=== PATIENT | male | born 1960 | race Caucasian/White ===

== ENCOUNTER 2022-04-17 11:15 | Inpatient (IN) | payer BC, SELFPAY ==
--- NOTE | ~2022-04-17 | CT_ITS ---
EXAMINATION: CT angio head neck CLINICAL INFORMATION: TIA. Dysarthria. Symptoms resolved. COMPARISON: No relevant prior imaging. TECHNIQUE: Quarter Doper images were obtained. A CT angiogram of the head and neck was performed in the arterial phase after the intravenous administration of 70 mL Omnipaque 350. Pre and delayed postcontrast images of the head were also obtained. MIP reconstructions were generated in multiple orientations at the acquisition workstation. Multiple three-dimensional surface rendered images and maximum intensity projection images were generated on a dedicated 3-D lab workstation. Arterial stenoses are measured in accordance with NASCET criteria or similar method if applicable. This CT examination was performed using dose optimization techniques as appropriate, including one or more of the following: Automated exposure control, iterative reconstruction, and adjustment of technique factors (mA and/or kVp) according to patient size (this includes techniques or standardized protocols for targeted exams where dose is matched to indication/reason for exam). Fleischner Society criteria for the followup of incidental pulmonary nodules was implemented if appropriate. Total exam dose-length product 2382 mGy-cm FINDINGS: Head: There is a small nonspecific hyperdensity located within the left cerebellar hemisphere best depicted on axial image 6 of 60 series 5. Otherwise no acute cranial hemorrhage or abnormal extra-axial collection. Postcontrast images reveal no abnormal intracranial mass or enhancement. No intracranial mass effect or midline shift. Lateral and third ventricles are normal. No hydrocephalus. Scattered nonspecific foci of hypoattenuation are visualized within the periventricular white matter that most likely represent a chronic manifestation of small vessel ischemia. Weathers-white matter differentiation is otherwise preserved and there is no evidence of acute territorial infarct. The calvarium and skull base are intact. Mastoid air cells and middle ear cavities are well aerated. No active paranasal sinus disease. There is a tiny retention cyst within the left maxillary sinus. CT angiogram neck: The aortic arch apex is no included within the jfirj-hh-bikj of this examination. Proximal branches of the aorta are grossly patent. Common carotid arteries are patent. Partially calcified atheromatous plaque involves both carotid bifurcations. There is 25% stenosis of the right internal carotid artery at its origin and there is a somewhat irregular contour along the anterior margin of the plaque best visualized on axial image 643 of 1054 series 10 that may represent an ulceration. The extra cranial internal carotid arteries are otherwise patent. The proximal cervical vertebral arteries are not well assessed on this examination due to the timing of the contrast injection. The distal V2 and V3 segments of the vertebral arteries are patent. CT angiogram head: Scattered atheromatous calcification involves the cavernous segments of both internal carotid arteries. There is mild to moderate narrowing involving the right intradural vertebral artery. The left vertebral artery and basilar artery are patent. Anterior, middle, and posterior cerebral complexes are unremarkable. Grossly no intracranial large vessel occlusion. Other: There are a few asymmetrically enlarged right level IV and right paratracheal lymph nodes. Soft tissues of the neck including the thyroid gland are normal. Grossly no pathologically enlarged cervical lymph nodes. Visualized lung apices are clear. There is no acute osseous finding. Specifically no worrisome lytic or blastic osseous lesion. CT/CT angio head neck IMPRESSION: There is partially calcified atheromatous plaque involving both carotid bifurcations. There is 25% stenosis of the right internal carotid artery at its origin and there is a possible ulceration of the right carotid plaque. No stenosis of the left extracranial internal carotid artery. The proximal vertebral arteries are not well assessed on this examination due to the timing of the contrast injection. The distal V2 and V3 segments of the vertebral arteries are patent. There is is mild to moderate narrowing of the right intradural vertebral artery. Otherwise no intracranial large vessel occlusion. Grossly no evidence of acute territorial infarct or hemorrhage. No abnormal intracranial mass or enhancement. Of note there are a few asymmetrically enlarged albeit otherwise nonspecific right level IV and right paratracheal lymph nodes that are partially included within the [id number]-[id number] of this examination.
--- NOTE | 2022-04-17 11:22 | PC.NURSE ---
PT ARRIVES AMBULATING STEADY, SPEECH CLEAR, NEGATIVE NEURO SCREEN. IT WAS REPORTED BY CO WORKERS THAT APPROX 1 HR HAD SLURRED SPEECH,LASTING A FEW MINUTES
--- NOTE | 2022-04-17 11:40 | ECG_ITS ---
Test Reason : WEAKNESS Blood Pressure : / mmHG Vent. Rate : 076 BPM Atrial Rate : 076 BPM P-R Int : 152 ms QRS Dur : 098 ms QT Int : 376 ms P-R-T Axes : 033 -55 079 degrees QTc Int : 423 ms Normal sinus rhythm Nonspecific T wave abnormality Lateral leads Left anterior fascicular block Cannot rule out Anterior infarct (cited on or before 06-NOV-2017) Abnormal ECG When compared with ECG of 06-NOV-2017 15:01, Nonspecific T wave abnormality Lateral leads is new Referred By: Generic ED Physician Electronically Signed By:JOY HOUSTON MD
[2022-04-17 11:45] VITALS: BP 201/92; PULSE 79; RESP 20; TEMP 36.9; O2SAT 97; BMI 40.7
[2022-04-17 12:50] LABS: MANUAL DIFF FLAG NO
[2022-04-17 12:52] LABS: Basophils Absolute Auto 0.1 X10*3/uL (0.0-0.2); Basophils Percent Auto 0.9 % (0-2); Eosinophils Absolute Auto 0.2 X10*3/uL (0.0-0.4); Eosinophils Percent Auto 2.1 % (0-4); Hematocrit 40.3 % (42.0-52.0); Hemoglobin 12.6 g/dl (14.0-18.0); Imm Gran Abs Auto 0.02 X10*3/uL (0.00-0.03); Imm Gran Pct Auto 0.3 % (0.0-0.4); Lymphocytes Absolute Auto 1.6 X10*3/uL (1.2-4.9); Lymphocytes Percent Auto 20.6 % (20-40); Mean Corpuscular HGB Conc 31.3 g/dl (31.0-36.0); Mean Corpuscular Hemoglobin 26.8 pg (27.0-33.0); Mean Corpuscular Volume 85.7 fL (80.0-98.0); Mean Platelet Volume 8.8 fL (9.4-12.4); Monocytes Absolute Auto 0.5 X10*3/uL (0.1-1.2); Monocytes Percent Auto 6.6 % (2-11); Neutrophils Absolute Auto 5.4 x10*3/uL (2.0-8.3); Neutrophils Percent Auto 69.5 % (45-73); Platelet Count 353 X10*3/uL (160-400); Red Cell Distribution Width 13.4 % (11.0-16.0); White Blood Count 7.7 X10*3/uL (4.8-10.8)
[2022-04-17 13:06] LABS: COVID-19 Test Negative (Negative); IDNOW Serial# 16C4AD1C
[2022-04-17 13:13] LABS: Anion Gap 14 (12-20); Blood Urea Nitrogen 33 mg/dL (9-16); Calcium 9.1 mg/dL (8.4-10.2); Carbon Dioxide 27 mmol/L (22-29); Chloride 107 mmol/L (96-108); Creatinine Clr Calc Pharmacy 64.4; Estimated Glomerular Filt Rate 49; Glucose Random 131 mg/dL (60-115); Potassium 5.4 mmol/L (3.3-5.1); Sodium 143 mmol/L (135-145)
[2022-04-17 13:15] LABS: Alanine Aminotransferase 27 U/L (0-40); Albumin Level 3.4 g/dL (3.5-5.0); Alkaline Phosphatase 83 U/L (39-117); Aspartate Amino Transferase 47 U/L (5-37); Bilirubin Direct < 0.2 mg/dL (0.0-0.5); Bilirubin Total 0.2 mg/dL (0.0-1.0); Total Protein 5.7 g/dL (6.5-8.0)
[2022-04-17 16:02] VITALS: BP 204/101; PULSE 75; RESP 19; TEMP 37.2; O2SAT 98
--- NOTE | 2022-04-17 16:28 | ED.NEUROSD ---
HPI - Neuro Symptoms/Deficit General Chief Complaint: Weakness Stated Complaint: quest of stroke Time Seen by Provider: 04/17/22 16:09 Source: patient Mode of arrival: ambulatory Limitations: no limitations History of Present Illness HPI Narrative: Patient comes to the emergency room complaining of dysarthria. Patient states that at 06:00, he woke up, went to work. 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 By 9 a.m., patient's co-worker told him that he sounded slurred, drunk, and the patient was aware that his speech was off. 911 was called by his friend, patient refused to come by ambulance. However, patient did come 2 hours later by private vehicle. Patient states that by the time that he reached the emergency room, his symptoms had already resolved. Patient states that he noticed that today his blood pressure has been on the higher side, above 200 which is unusual for him, usually he runs between 110 and 120 systolic. He did not take his medication this morning. Patient also complaining of blurred vision bilaterally. Patient states that he check his blood sugar when he noticed his vision was blurred, it was 110 Related Data Allergies Allergy/AdvReac Type Severity Reaction Status Date / Time No Known Allergies Allergy Unverified 03/11/20 15:44 [facility] Social History Social History Alcohol intake: current Alcohol intake frequency: holidays/special occasions only Patient Tobacco Use Status: Never used Tobacco Use of substances other than those prescribed or required for medical reasons: Yes Substance Use Type: Marijuana Substance Use Frequency: Socially Last Used Substance: Days (ago) Any prior treatment program specific to substance use: No Advance Directives: No Advance Directives Information Provided: No Physical Exam Vital Signs: Vital Signs: Last Vital Signs Temp 98.3 F 04/17/22 18:57 Pulse 76 04/17/22 18:57 Resp 15 04/17/22 18:57 BP 172/85 H 04/17/22 18:57 Pulse Ox 98 04/17/22 18:30 O2 Del Method 04/17/22 18:30 BMI result Body Mass Index 40.7 Course Course Course Narrative: I discussed the CT and CTA with the patient and his . No acute findings other than 25% right carotid stenosis. I discussed with the patient that his symptoms may have been a TIA. I discussed the patient with Dr. Garcia, patient will be admitted for further evaluation MDM - Neuro Symptoms/Deficit Lab Data Result diagrams: 04/17/22 12:38 04/17/22 12:38 Labs: Lab Results 04/17/22 04/17/22 04/17/22 Range/Units 12:38 12:38 12:38 WBC 7.7 (4.8-10.8) X10*3/uL RBC 4.70 (4.60-5.80) X10*6/uL Hgb 12.6 L (14.0-18.0) g/dl Hct 40.3 L (42.0-52.0) % MCV 85.7 (80.0-98.0) fL MCH 26.8 L (27.0-33.0) pg MCHC 31.3 (31.0-36.0) g/dl RDW 13.4 (11.0-16.0) % Plt Count 353 (160-400) X10*3/uL MPV 8.8 L (9.4-12.4) fL Immature Gran % (Auto) 0.3 (0.0-0.4) % Neut % (Auto) 69.5 (45-73) % Lymph % (Auto) 20.6 (20-40) % [place] % (Auto) 6.6 (2-11) % Eos % (Auto) 2.1 (0-4) % Baso % (Auto) 0.9 (0-2) % Lymph # (Auto) 1.6 (1.2-4.9) X10*3/uL [place] # (Auto) 0.5 (0.1-1.2) X10*3/uL Eos # (Auto) 0.2 (0.0-0.4) X10*3/uL Baso # (Auto) 0.1 (0.0-0.2) X10*3/uL Abs Immat Gran (auto) 0.02 (0.00-0.03) X10*3/uL Absolute Neuts (auto) 5.4 (2.0-8.3) x10*3/uL Absolute Nucleated RBC 0.000 (0.0-0.012) X10*3/uL Nucleated RBC % (auto) 0.0 (0.0-0.2) /100WBC Sodium 143 (135-145) mmol/L Potassium 5.4 H (3.3-5.1) mmol/L Chloride 107 (96-108) mmol/L Carbon Dioxide 27 (22-29) mmol/L Anion Gap 14 (12-20) BUN 33 H (9-16) mg/dL Creatinine 1.46 H (0.5-1.4) mg/dL Estim Creat Clear Calc 64.4 Estimated GFR 49 Random Glucose 131 H (60-115) mg/dL Calcium 9.1 (8.4-10.2) mg/dL Total Bilirubin (0.0-1.0) mg/dL Direct Bilirubin (0.0-0.5) mg/dL AST (5-37) U/L ALT (0-40) U/L Alkaline Phosphatase (39-117) U/L Total Protein (6.5-8.0) g/dL Albumin (3.5-5.0) g/dL COVID-19 (TERRANCE) Negative (Negative) COVID-19 Clin Com See Note 04/17/22 Range/Units 12:38 WBC (4.8-10.8) X10*3/uL RBC (4.60-5.80) X10*6/uL Hgb (14.0-18.0) g/dl Hct (42.0-52.0) % MCV (80.0-98.0) fL MCH (27.0-33.0) pg MCHC (31.0-36.0) g/dl RDW (11.0-16.0) % Plt Count (160-400) X10*3/uL MPV (9.4-12.4) fL Immature Gran % (Auto) (0.0-0.4) % Neut % (Auto) (45-73) % Lymph % (Auto) (20-40) % [place] % (Auto) (2-11) % Eos % (Auto) (0-4) % Baso % (Auto) (0-2) % Lymph # (Auto) (1.2-4.9) X10*3/uL [place] # (Auto) (0.1-1.2) X10*3/uL Eos # (Auto) (0.0-0.4) X10*3/uL Baso # (Auto) (0.0-0.2) X10*3/uL Abs Immat Gran (auto) (0.00-0.03) X10*3/uL Absolute Neuts (auto) (2.0-8.3) x10*3/uL Absolute Nucleated RBC (0.0-0.012) X10*3/uL Nucleated RBC % (auto) (0.0-0.2) /100WBC Sodium (135-145) mmol/L Potassium (3.3-5.1) mmol/L Chloride (96-108) mmol/L Carbon Dioxide (22-29) mmol/L Anion Gap (12-20) BUN (9-16) mg/dL Creatinine (0.5-1.4) mg/dL Estim Creat Clear Calc Estimated GFR Random Glucose (60-115) mg/dL Calcium (8.4-10.2) mg/dL Total Bilirubin 0.2 (0.0-1.0) mg/dL Direct Bilirubin < 0.2 (0.0-0.5) mg/dL AST 47 H (5-37) U/L ALT 27 (0-40) U/L Alkaline Phosphatase 83 (39-117) U/L Total Protein 5.7 L (6.5-8.0) g/dL Albumin 3.4 L (3.5-5.0) g/dL COVID-19 (TERRANCE) (Negative) COVID-19 Clin Com Imaging Data Head and neck CT and CTA: Radiologist's impression: FINDINGS: Head: There is a small nonspecific hyperdensity located within the left cerebellar hemisphere best depicted on axial image 6 of 60 series 5. Otherwise no acute cranial hemorrhage or abnormal extra-axial collection. Postcontrast images reveal no abnormal intracranial mass or enhancement. No intracranial mass effect or midline shift. Lateral and third ventricles are normal. No hydrocephalus. Scattered nonspecific foci of hypoattenuation are visualized within the periventricular white matter that most likely represent a chronic manifestation of small vessel ischemia. Waethers-white matter differentiation is otherwise preserved and there is no evidence of acute territorial infarct. The calvarium and skull base are intact. Mastoid air cells and middle ear cavities are well aerated. No active paranasal sinus disease. There is a tiny retention cyst within the left maxillary sinus. CT angiogram neck: The aortic arch apex is no included within the [id number] of this examination. Proximal branches of the aorta are grossly patent. Common carotid arteries are patent. Partially calcified atheromatous plaque involves both carotid bifurcations. There is 25% stenosis of the right internal carotid artery at its origin and there is a somewhat irregular contour along the anterior margin of the plaque best visualized on axial image 643 of 1054 series 10 that may represent an ulceration. The extra cranial internal carotid arteries are otherwise patent. The proximal cervical vertebral arteries are not well assessed on this examination due to the timing of the contrast injection. The distal V2 and V3 segments of the vertebral arteries are patent. CT angiogram head: Scattered atheromatous calcification involves the cavernous segments of both internal carotid arteries. There is mild to moderate narrowing involving the right intradural vertebral artery. The left vertebral artery and basilar artery are patent. Anterior, middle, and posterior cerebral complexes are unremarkable. Grossly no intracranial large vessel occlusion. Other: There are a few asymmetrically enlarged right level IV and right paratracheal lymph nodes. Soft tissues of the neck including the thyroid gland are normal. Grossly no pathologically enlarged cervical lymph nodes. Visualized lung apices are clear. There is no acute osseous finding. Specifically no worrisome lytic or blastic osseous lesion. CT/CT angio head neck IMPRESSION: There is partially calcified atheromatous plaque involving both carotid bifurcations. There is 25% stenosis of the right internal carotid artery at its origin and there is a possible ulceration of the right carotid plaque. No stenosis of the left extracranial internal carotid artery. The proximal vertebral arteries are not well assessed on this examination due to the timing of the contrast injection. The distal V2 and V3 segments of the vertebral arteries are patent. There is is mild to moderate narrowing of the right intradural vertebral artery. Otherwise no intracranial large vessel occlusion. Grossly no evidence of acute territorial infarct or hemorrhage. No abnormal intracranial mass or enhancement. Of note there are a few asymmetrically enlarged albeit otherwise nonspecific right level IV and right paratracheal lymph nodes that are partially included within the [id number] of this examination.? Critical Care Time Critical Care Time Critical Care Time: Yes Total Critical Care Time: 45 Attestation: I have personally provided critical care time. Time includes review of lab data, radiology results, discussion with consultants, and monitoring for potential decompensation. Intervention performed as documented. Discharge Plan Discharge Clinical Impression: Brain TIA Patient Disposition: Admitted As Inpatient
[2022-04-17] MEDS: iohexoL 350 MG/ML 100 ML INFUS..BTL IV (18:08)
[2022-04-17 18:30] VITALS: BP 170/85; PULSE 77; RESP 15; TEMP 36.9; O2SAT 98
[2022-04-17] MEDS: Labetalol HCL 100 MG TABLET PO (18:35)
[2022-04-17 18:57] VITALS: BP 172/85; PULSE 76; RESP 15; TEMP 36.8
--- NOTE | 2022-04-17 20:15 | P.HPHOSP_ITS ---
History of Present Illness Date of Service: 04/17/22 Chief Complaint: Dysarthria This is a 61-year-old male with a pertinent history of insulin-dependent diabetes mellitus, mixed hyperlipidemia, essential hypertension who presents to the emergency department for evaluation of dysarthria. Patient states around 08:00 his assistant front end manager at home noticed change in speech. Patient states that his speech was slurry and his assistant front end manager told him that he sounded drunk. Patient also had blurring of vision at that time. His speech returned to baseline in 2 hours by the time patient came to the ER. No similar symptoms in the past. No history of stroke or TIA. Patient checked his blood glucose and it was in the 110s. No rhythmic jerking movement of extremities, no tongue bite, no loss of consciousness. Patient denies fever, chills, chest discomfort, palpitations, abdominal discomfort, changes in urinary or bowel habits In the emergency department, CT head was without any acute deficits. Review of Systems Review of Systems: All 13 review of systems are negative except as noted in [facility] Medical History Hyperlipidemia Hypertension Insulin dependent diabetes Functional capacity: independent ambulation Social History Alcohol intake: current Alcohol intake frequency: holidays/special occasions only Patient Tobacco Use Status: Never used Tobacco Use of substances other than those prescribed or required for medical reasons: Yes Substance Use Type: Marijuana Substance Use Frequency: Socially Last Used Substance: Days (ago) Any prior treatment program specific to substance use: No Advance Directives: No Advance Directives Information Provided: No Meds Allergies Allergy/AdvReac Type Severity Reaction Status Date / Time No Known Allergies Allergy Unverified 03/11/20 15:44 Active Medications: Current Medications Acetaminophen (Acetaminophen 325 Mg Tablet) 650 mg PO Q6H PRN PRN Reason: Pain, Mild (Pain Scale 1-3) Aspirin (Aspirin Enteric Coated 81 Mg Tablet.) 81 mg PO DAILY DELON Dextrose (Dextrose 50 % 25 Gm/50 Ml Syringe) 25 gm IVPUSH Q15M PRN; Protocol PRN Reason: per Hypoglycemia Standing Ord. Enoxaparin Sodium (Enoxaparin Sodium 30 Mg/0.3 Ml Syringe) 30 mg SUBCUT DAILY DELON Fenofibrate (Fenofibrate 160 Mg Tablet) 120 mg PO BEDTIME DELON Glucose (Glucose Gel 15 Gm Gel..Gram.) 15 gm PO Q15M PRN; Protocol PRN Reason: per Hypoglycemia Standing Ord. Insulin Glargine (Insulin Glargine,Hum.Rec.Anlog 100 Unit/Ml 10 Ml Vial) 55 unit SUBCUT BEDTIME DELON Insulin Human Lispro (Insulin Lispro 100 Unit/Ml 3 Ml Vial) 0 unit SUBCUT QIDACHS DELON; Protocol Stop: 04/18/22 20:12 Losartan Potassium (Losartan Potassium 25 Mg Tablet) 25 mg PO DAILY DELON; Protocol Melatonin (Melatonin 3 Mg Tablet) 6 mg PO BEDTIME PRN PRN Reason: Insomnia Non-Formulary Medication (Simvastatin) 1 tab PO BEDTIME DELON Ondansetron HCl (Ondansetron Hcl 4 Mg/2 Ml Vial) 4 mg IVPUSH Q8H PRN PRN Reason: Nausea and Vomiting Pharmacy Consult (Consult Rx Perform Med Rec) 1 each MISCELLANE ONCE STA Stop: 04/17/22 19:37 Home Medications Medication Instructions Recorded Confirmed Last Taken Type cholecalciferol (vitamin D3) 50 50 mcg PO DAILY 04/17/22 04/17/22 04/16/22 History mcg (2,000 unit) tablet fenofibrate 120 mg tablet 1 tab PO BEDTIME 04/17/22 04/17/22 04/16/22 History insulin glargine 100 unit/mL (3 80 unit subcut BEDTIME 04/17/22 04/17/22 04/16/22 History mL) subcutaneous pen (Lantus Solostar U-100 Insulin) losartan 25 mg tablet 1 tab PO DAILY 04/17/22 04/17/22 04/16/22 History sildenafil 25 mg tablet 25 mg PO DAILY PRN Sexual Activity 04/17/22 04/17/22 Unknown History simvastatin 80 mg tablet 80 mg PO BEDTIME 04/17/22 04/17/22 04/16/22 History Physical Exam Vital Signs and Narrative: Vital Signs: Last Vital Signs Temp 98.3 F 04/17/22 18:57 Pulse 76 04/17/22 18:57 Resp 15 04/17/22 18:57 BP 172/85 H 04/17/22 18:57 Pulse Ox 98 04/17/22 18:30 O2 Del Method 04/17/22 18:30 BMI result Body Mass Index 40.7 Middle-aged male lying in bed in no distress Neck supple, no JVD Regular rate and rhythm, S1-S2 heard Regular breath sounds bilaterally, no wheezing or crackles appreciated Abdomen soft nontender, no guarding, no rigidity Patient is awake, alert and oriented to self, place, time and person ; no pronator drift, strength 5/5 in all extremities, no facial droop, no nystagmus, normal shoulder shrug Psych: Normal mood No pedal edema Results Labs CBC and Chem 7: 04/17/22 12:38 04/17/22 12:38 Labs: Laboratory Results - last 24 hr 04/17/22 04/17/22 04/17/22 12:38 12:38 12:38 MCV 85.7 MCH 26.8 L MCHC 31.3 RDW 13.4 Plt Count 353 MPV 8.8 L Immature Gran % (Auto) 0.3 Neut % (Auto) 69.5 Lymph % (Auto) 20.6 [place] % (Auto) 6.6 Eos % (Auto) 2.1 Baso % (Auto) 0.9 Lymph # (Auto) 1.6 [place] # (Auto) 0.5 Eos # (Auto) 0.2 Baso # (Auto) 0.1 Abs Immat Gran (auto) 0.02 Absolute Neuts (auto) 5.4 Absolute Nucleated RBC 0.000 Nucleated RBC % (auto) 0.0 Anion Gap 14 Estim Creat Clear Calc 64.4 Estimated GFR 49 Random Glucose 131 H Calcium 9.1 Total Bilirubin Direct Bilirubin AST ALT Alkaline Phosphatase Total Protein Albumin COVID-19 (TERRANCE) Negative COVID-19 Clin Com See Note 04/17/22 12:38 MCV MCH MCHC RDW Plt Count MPV Immature Gran % (Auto) Neut % (Auto) Lymph % (Auto) [place] % (Auto) Eos % (Auto) Baso % (Auto) Lymph # (Auto) [place] # (Auto) Eos # (Auto) Baso # (Auto) Abs Immat Gran (auto) Absolute Neuts (auto) Absolute Nucleated RBC Nucleated RBC % (auto) Anion Gap Estim Creat Clear Calc Estimated GFR Random Glucose Calcium Total Bilirubin 0.2 Direct Bilirubin < 0.2 AST 47 H ALT 27 Alkaline Phosphatase 83 Total Protein 5.7 L Albumin 3.4 L COVID-19 (TERRANCE) COVID-19 Clin Com Imaging Radiologist's Impressions: Impressions Head/Neck CTA 04/17/22 18:09 IMPRESSION: There is partially calcified atheromatous plaque involving both carotid bifurcations. There is 25% stenosis of the right internal carotid artery at its origin and there is a possible ulceration of the right carotid plaque. No stenosis of the left extracranial internal carotid artery. The proximal vertebral arteries are not well assessed on this examination due to the timing of the contrast injection. The distal V2 and V3 segments of the vertebral arteries are patent. There is is mild to moderate narrowing of the right intradural vertebral artery. Otherwise no intracranial large vessel occlusion. Grossly no evidence of acute territorial infarct or hemorrhage. No abnormal intracranial mass or enhancement. Of note there are a few asymmetrically enlarged albeit otherwise nonspecific right level IV and right paratracheal lymph nodes that are partially included within the [id number] of this examination. Assessment and Plan (1) Brain TIA: Status: Acute (2) Dysarthria: Status: Acute (3) Hyperlipidemia: Status: Acute (4) Insulin dependent diabetes: Status: Acute (5) Hypertension: Status: Acute (6) Chronic kidney disease: Status: Acute Plan This is a 61-year-old male with a pertinent history of insulin-dependent diabetes mellitus, mixed hyperlipidemia, essential hypertension who presents to the emergency department for evaluation of dysarthria. #. Dysarthria, resolved concerning for TIA #. 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 ABCD2 score:6. Obtain MRI in am and consult neurology. Echo, A1c and lipid panel pending to complete ischemic CVA work up. Continue fenofibrate, statin and initiating aspirin. #. Essential hypertension -BP elevated at the time of admission. Resume losartan. #. Insulin dependent diabetes milletus -Reduce basal regimen by 20% while in the hospital. Initiating accu checks with sliding scale before meals and at bedtime. #. Chronic kidney disease -unclear baseline. Monitor creatinine and urine output. #. Mixed hyperlipidemia -On statin and fenofibrate DVT prophylaxis : Lovenox Diet : Diabetic diet Full code Will admit as inpatient for CVA work up including MRI brain and neurology evaluation. Quality Stroke Does the patient have a stroke diagnosis?: No VTE Prior VTE?: No VTE Risk Level:: Medical - moderate - high VTE Device Contraindication: Treatment Not Indicated VTE Drug Contraindication: N/A - Med Ordered
[2022-04-17 20:44] LABS: Cholesterol 211 mg/dL; HDL Cholesterol 48 mg/dL; LDL Cholesterol Calculated 138 mg/dl; Triglycerides 129 mg/dL
--- NOTE | 2022-04-17 20:51 | PHA.MEDREC ---
Pharmacy Consult ? Medication Reconciliation Pharmacy has completed the medication reconciliation. spoke with pt
--- NOTE | 2022-04-17 21:37 | PC.NURSE ---
Pt resting in bed. When tech was pulling up info for lab work, it came up as needing to be fasting. Messaged Dr. Garcia and ok to draw labs without fasting as pt. has been eating during the day and the evening.
[2022-04-17 21:56] LABS: Glucose, Whole Blood 207 mg/dL (60-115)
[2022-04-17] MEDS: Aspirin Enteric Coated 81 MG TABLET.DR PO (22:03)
[2022-04-17] MEDS: Losartan Potassium 25 MG TABLET PO (22:03)
[2022-04-17] MEDS: Insulin Lispro 100 UNIT/ML 3 ML VIAL SUBCUT (22:04)
[2022-04-17] MEDS: Enoxaparin Sodium 40 MG/0.4 ML SYRINGE SUBCUT (22:04)
[2022-04-17] MEDS: Insulin Glargine,Hum.rec.anlog 100 UNIT/ML 10 ML VIAL 55 UNIT SUBCUT (22:05)
--- NOTE | 2022-04-17 22:17 | PC.NURSE ---
8pm medications delayed as we were pending verification by pharmacy. Pharmacy verified and meds given.
[2022-04-17 22:52] VITALS: BP 183/89; PULSE 80; RESP 19; O2SAT 95
[2022-04-18] VITALS (9 sets, daily range): BP systolic 149–191; BP diastolic 67–99; PULSE 67–83; RESP 11–20; TEMP 36.5–37.3; O2SAT 95–98
--- NOTE | 2022-04-18 | ECG_ITS ---
Test Reason : EKG CHANGES Blood Pressure : / mmHG Vent. Rate : 069 BPM Atrial Rate : 069 BPM P-R Int : 158 ms QRS Dur : 090 ms QT Int : 396 ms P-R-T Axes : 048 -63 052 degrees QTc Int : 424 ms Normal sinus rhythm Left anterior fascicular block Cannot rule out Anterior infarct (cited on or before 06-NOV-2017) Abnormal ECG When compared with ECG of 17-APR-2022 13:10, No significant change was found Referred By: Armando Rose Electronically Signed By:JOY HOUSTON MD
--- NOTE | 2022-04-18 04:32 | PC.NURSE ---
Pt. placed in hospital bed around 1am when he was up to use the bathroom. Pt. now sleeping in his room.
[2022-04-18 04:58] LABS: Glucose, Whole Blood 42 mg/dL (60-115)
[2022-04-18 05:12] LABS: Estimated Average Glucose 258 mg/dL; Hemoglobin A1c % 10.6 %
--- NOTE | 2022-04-18 05:14 | PC.NURSE ---
Pt. woke up feeling dizzy and hot. Pt. diaphoretic. Checked POC blood glucose and low result at 42. Provided OJ and crackers. 1st recheck was 55. 2nd recheck 76.
[2022-04-18 05:15] LABS: Glucose, Whole Blood 55 mg/dL (60-115)
[2022-04-18 05:15] LABS: Glucose, Whole Blood 76 mg/dL (60-115)
[2022-04-18 06:20] LABS: Glucose, Whole Blood 120 mg/dL (60-115)
[2022-04-18 06:30] LABS: MANUAL DIFF FLAG NO
[2022-04-18 06:31] LABS: Basophils Absolute Auto 0.1 X10*3/uL (0.0-0.2); Basophils Percent Auto 0.7 % (0-2); Eosinophils Absolute Auto 0.2 X10*3/uL (0.0-0.4); Eosinophils Percent Auto 2.8 % (0-4); Hemoglobin 11.6 g/dl (14.0-18.0); Imm Gran Abs Auto 0.03 X10*3/uL (0.00-0.03); Imm Gran Pct Auto 0.4 % (0.0-0.4); Lymphocytes Absolute Auto 1.2 X10*3/uL (1.2-4.9); Lymphocytes Percent Auto 14.6 % (20-40); Mean Corpuscular HGB Conc 32.2 g/dl (31.0-36.0); Mean Corpuscular Hemoglobin 27.6 pg (27.0-33.0); Mean Corpuscular Volume 85.7 fL (80.0-98.0); Mean Platelet Volume 8.6 fL (9.4-12.4); Monocytes Absolute Auto 0.5 X10*3/uL (0.1-1.2); Monocytes Percent Auto 6.5 % (2-11); Neutrophils Absolute Auto 6.1 x10*3/uL (2.0-8.3); Platelet Count 310 X10*3/uL (160-400); Red Cell Distribution Width 13.6 % (11.0-16.0); White Blood Count 8.2 X10*3/uL (4.8-10.8)
[2022-04-18 06:51] LABS: Cholesterol 186 mg/dL; HDL Cholesterol 36 mg/dL; LDL Cholesterol Calculated 116 mg/dl; Triglycerides 174 mg/dL
[2022-04-18 06:52] LABS: Anion Gap 12 (12-20); Blood Urea Nitrogen 24 mg/dL (9-16); Calcium 8.7 mg/dL (8.4-10.2); Carbon Dioxide 28 mmol/L (22-29); Chloride 107 mmol/L (96-108); Creatinine Clr Calc Pharmacy 74.6; Estimated Glomerular Filt Rate 58; Glucose Random 133 mg/dL (60-115); Potassium 4.3 mmol/L (3.3-5.1); Sodium 143 mmol/L (135-145)
--- NOTE | 2022-04-18 07:00 | CA_ITS ---
Transthoracic Echocardiogram Patient (Last, First, Middle): Jerson Sibley, Gender: Male Date of : 1960 Age: 61 Procedure Date: 04/18/2022 Procedure Type: Transthoracic [place] [facility] [place]: 170.18 cm Weight: 127.01 kg BSA: 2.33 m2 Heart Rate: bpm BP: 191 / 99 mmHg Credit Operations Specialist: Referring MD: Taurus Garcia MD Manager Background: Martín Bradford MD Symptoms: Slurred speech, possible stroke Study Quality: Fair ECG Rhythm: Sinus Conclusions: - 1. Normal LV systolic function with moderate LVH with pseudonormal filling pattern with underlying wall motion abnormality suggestive coronary artery disease 2. Mildly dilated left atrium 3. Normal cardiac valvular Doppler 4. Normal RV systolic pressure 5. No gross pericardial effusion Findings Left Ventricle Normal left ventricular size and systolic function. There is moderately increased left ventricular wall thickness. The visually estimated ejection fraction is between 60-65%. Spectral Doppler is indicative of a pseudonormal filling pattern. E/E prime ratio is between 8 and 15 consistent with indeterminate filling pressures. Wall Motion Rest Echo Findings The mid inferior segment is hypokinetic. The basal inferior and basal inferoseptal segments are akinetic. All other scored wall segments showed normal motion. Right Ventricle Normal right ventricular cavity size. Atria The left atrium is mildly dilated. Interatrial shunt cannot be excluded. The right atrium is normal in size. Aortic Valve The aortic valve structure and function is likely normal. There is no aortic valve stenosis. There is no aortic valve regurgitation. Mitral Valve Normal mitral valve structure and function. There is trace mitral valve regurgitation. There is no mitral valve stenosis. Pulmonic Valve The pulmonic valve was not well visualized. Tricuspid Valve Likely normal tricuspid valve structure and function. There is trace tricuspid valve regurgitation. The right ventricular systolic pressure is normal. The right ventricular systolic pressure is 26 mmHg. Normal right atrial pressure. There is no evidence of pulmonary hypertension. Great Vessels All visible segments of the aorta are normal in size. The pulmonary artery was not well visualized. Venous The inferior vena cava is normal in size. Pericardium/Pleural There is no evidence of pericardial effusion. Prior Study Comparison No prior study available for comparison. Recommendations, Care & Conclusions Consider a BRUNO if clinically appropriate. Recommend contrast study to evaluate intracardiac shunting. Measurements 2D Linear Measurements IVSd: 1.47 0.6-0.9/0.6-1.0 cm LVIDd: 5.10 3.9-5.3/4.2-5.9 cm LVIDd Index: 2.19 2.4-3.2/2.2-3.1 cm/m2 LVIDs: 3.27 2.0-3.6 cm LVPWd: 1.39 0.7-1.1 cm LA Diam: 4.10 2.7-3.8/3.0-4.0 cm LAIDs Index: 1.76 1.5-2.3 cm/m2 LV Mass: 386.58 67-162/88-224 g LV Mass Index: 165.91 43-95/49-115 g/m2 LVOT Diam: 2.10 3.0+(-)1.3 cm Mitral Valve MV Pk E: 0.97 MV PK A: 0.85 MV Decel Time: 168.00 E/A: 1.10 E'Lateral: 8.16 E'Medial: 5.44 E/E' Med: 17.90 E/E' Lat: 11.90 PHT: 49.00 MVA PHT: 4.49 Decel Blount: 5.78 Aortic Valve AoV Pk Corey: 1.58 AoV Mn Corey: 1.08 AoV VTI: 0.35 AoV Pk Grad: 10.00 Aov Mn Grad: 5.00 ANIKET Cont.VTI: 1.88 LVOT LVOT Pk Corey: 0.80 LVOT Mn Corey: 0.58 LVOT VTI: 0.19 LVOT Pk Grad: 3.00 LVOT Mn Grad: 2.00 LVOT Diam: 2.10 LVOT Area: 3.46 Diastolic Function MV Pk E: 0.97 MV Pk A: 0.85 E/A: 1.10 E'Medial: 5.44 E/E' Med: 17.90 E' Laterial: 8.16 E/E' Lat: 11.90 Right Ventricle TAPSE (mm): 29.00 TVS' Corey: 15.00 Tricuspid Valve TR Pk Corey: 2.38 TR Pk Grad: 23.00 RA Press: 3.00 RVSP: 26.00 Pulmonary Valve PV Pk Corey: 0.97 Peak PV Grad: 4.00 Updated in Other Vendor System with Status of Final Martín Bradford MD electronically signed on 04/18/2022 11:46:07 AM with status of Final
[2022-04-18 07:54] LABS: Glucose, Whole Blood 126 mg/dL (60-115)
--- NOTE | 2022-04-18 08:35 | PC.NURSE ---
pt is a/o x 4 no sob/guadalupe noted lungs - cta expect rll - diminished. heart sound - regular (77). abd obese (hernia) soft non-tender, bs + x 4 quads. no edema noted. pt aware of plan of care.
--- NOTE | 2022-04-18 08:59 | MHC.CM.PN ---
CM MET WITH PATIENT. LIVES IN A SINGLE FAMILY HOME WITH AND ADULT CHILDREN. 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 USES CANE OCCASIONALLY FOR KNEE PAIN. DOES NOT HAVE A HCP ON FILE, WILLING TO DO ONE WHILE HERE. + COVID VAX X2 WITH LINDY. PCP DR. SHAJI GARCIA AT [facility]. DP: ANTICIPATE HOME, NO SERVICES. WILL TRANSPORT ON DISCHARGE. CM WILL FOLLOW FOR DC NEEDS.
[2022-04-18] MEDS: Aspirin Enteric Coated 81 MG TABLET.DR PO (10:03)
[2022-04-18] MEDS: Losartan Potassium 25 MG TABLET PO (10:03)
--- NOTE | 2022-04-18 10:14 | HO.PM.IMPN ---
Subjective Subjective Date of Service: 04/18/22 Interval History: seen and examined denies any slurred speech or focal weakness reports blurred vision at close range Review of Systems negative except HPI Physical Exam Vital Signs: Vital Signs: Last Vital Signs Temp 97.7 F 04/18/22 07:18 Pulse 71 04/18/22 09:59 Resp 15 04/18/22 09:59 BP 191/99 H 04/18/22 09:59 Pulse Ox 97 04/18/22 09:59 O2 Del Method 04/18/22 09:59 BMI result Body Mass Index 40.7 Const: Other: General - no acute distress, appears comfortable Cardiovascular - regular rate and rhythm, S1-S2 Lungs - normal respiratory effort, clear to auscultation bilaterally, no wheezing Abdomen - soft, nontender, no rebound or guarding Extremities - no edema bilaterally Neuro - awake and alert, no focal deficits; cn 2-12 intact b/l; strength equal in all extremities; speech comprehensible Objective Data Active Medications Acetaminophen (Acetaminophen 325 Mg Tablet) 650 mg PO Q6H PRN PRN Reason: Pain, Mild (Pain Scale 1-3) Aspirin (Aspirin Enteric Coated 81 Mg Tablet.) 81 mg PO DAILY [facility] Last Admin: 04/18/22 10:03 Dose: 81 mg Documented By: ZINA Atorvastatin Calcium (Atorvastatin Calcium 80 Mg Tablet) 80 mg PO BEDTIME [facility] Dextrose (Dextrose 50 % 25 Gm/50 Ml Syringe) 25 gm IVPUSH Q15M PRN; Protocol PRN Reason: per Hypoglycemia Standing Ord. Enoxaparin Sodium (Enoxaparin Sodium 40 Mg/0.4 Ml Syringe) 40 mg SUBCUT Q24H [facility] Last Admin: 04/17/22 22:04 Dose: 40 mg Documented By: SARA Fenofibrate (Fenofibrate,Micronized 134 Mg Capsule) 134 mg PO BEDTIME [facility] Glucose (Glucose Gel 15 Gm Gel..Gram.) 15 gm PO Q15M PRN; Protocol PRN Reason: per Hypoglycemia Standing Ord. Insulin Glargine (Insulin Glargine,Hum.Rec.Anlog 100 Unit/Ml 10 Ml Vial) 55 unit SUBCUT BEDTIME [facility] Last Admin: 04/17/22 22:05 Dose: 55 unit Documented By: SARA Insulin Human Lispro (Insulin Lispro 100 Unit/Ml 3 Ml Vial) 0 unit SUBCUT QIDACHS [facility]; Protocol Stop: 04/18/22 20:12 Last Admin: 04/18/22 08:38 Dose: Not Given Documented By: ZINA Non-Admin Reason: No Insulin Coverage Losartan Potassium (Losartan Potassium 25 Mg Tablet) 25 mg PO DAILY [facility]; Protocol Last Admin: 04/18/22 10:03 Dose: 25 mg Documented By: ZINA Melatonin (Melatonin 3 Mg Tablet) 6 mg PO BEDTIME PRN PRN Reason: Insomnia Ondansetron HCl (Ondansetron Hcl 4 Mg/2 Ml Vial) 4 mg IVPUSH Q8H PRN PRN Reason: Nausea and Vomiting Labs CBC & Chem 7: 04/18/22 06:24 04/18/22 06:24 Labs: Laboratory Results - last 24 hr 04/17/22 04/17/22 04/17/22 12:00 12:38 12:38 MCV 85.7 MCH 26.8 L MCHC 31.3 RDW 13.4 Plt Count 353 MPV 8.8 L Immature Gran % (Auto) 0.3 Neut % (Auto) 69.5 Lymph % (Auto) 20.6 Pike % (Auto) 6.6 Eos % (Auto) 2.1 Baso % (Auto) 0.9 Lymph # (Auto) 1.6 Pike # (Auto) 0.5 Eos # (Auto) 0.2 Baso # (Auto) 0.1 Abs Immat Gran (auto) 0.02 Absolute Neuts (auto) 5.4 Absolute Nucleated RBC 0.000 Nucleated RBC % (auto) 0.0 Anion Gap 14 Estim Creat Clear Calc 64.4 Estimated GFR 49 POC Glucose Random Glucose 131 H Estimat Average Glucose 258 Hemoglobin A1c % 10.6 Calcium 9.1 Total Bilirubin Direct Bilirubin AST ALT Alkaline Phosphatase Total Protein Albumin Triglycerides Cholesterol LDL Cholesterol, Calc HDL Cholesterol COVID-19 ([facility]) COVID-19 Clin Com 04/17/22 04/17/22 04/17/22 12:38 12:38 21:52 MCV MCH MCHC RDW Plt Count MPV Immature Gran % (Auto) Neut % (Auto) Lymph % (Auto) Pike % (Auto) Eos % (Auto) Baso % (Auto) Lymph # (Auto) Pike # (Auto) Eos # (Auto) Baso # (Auto) Abs Immat Gran (auto) Absolute Neuts (auto) Absolute Nucleated RBC Nucleated RBC % (auto) Anion Gap Estim Creat Clear Calc Estimated GFR POC Glucose 207 H Random Glucose Estimat Average Glucose Hemoglobin A1c % Calcium Total Bilirubin 0.2 Direct Bilirubin < 0.2 AST 47 H ALT 27 Alkaline Phosphatase 83 Total Protein 5.7 L Albumin 3.4 L Triglycerides 129 Cholesterol 211 LDL Cholesterol, Calc 138 HDL Cholesterol 48 COVID-19 ([facility]) Negative COVID-19 Clin Com See Note 04/18/22 04/18/22 04/18/22 04:53 05:01 05:11 MCV MCH MCHC RDW Plt Count MPV Immature Gran % (Auto) Neut % (Auto) Lymph % (Auto) Pike % (Auto) Eos % (Auto) Baso % (Auto) Lymph # (Auto) Pike # (Auto) Eos # (Auto) Baso # (Auto) Abs Immat Gran (auto) Absolute Neuts (auto) Absolute Nucleated RBC Nucleated RBC % (auto) Anion Gap Estim Creat Clear Calc Estimated GFR POC Glucose 42 L* 55 L* 76 Random Glucose Estimat Average Glucose Hemoglobin A1c % Calcium Total Bilirubin Direct Bilirubin AST ALT Alkaline Phosphatase Total Protein Albumin Triglycerides Cholesterol LDL Cholesterol, Calc HDL Cholesterol COVID-19 ([facility]RANCE) COVID-19 Clin Com 04/18/22 04/18/22 04/18/22 06:16 06:24 06:24 MCV 85.7 MCH 27.6 MCHC 32.2 RDW 13.6 Plt Count 310 MPV 8.6 L Immature Gran % (Auto) 0.4 Neut % (Auto) 75.0 H Lymph % (Auto) 14.6 L Pike % (Auto) 6.5 Eos % (Auto) 2.8 Baso % (Auto) 0.7 Lymph # (Auto) 1.2 Pike # (Auto) 0.5 Eos # (Auto) 0.2 Baso # (Auto) 0.1 Abs Immat Gran (auto) 0.03 Absolute Neuts (auto) 6.1 Absolute Nucleated RBC 0.000 Nucleated RBC % (auto) 0.0 Anion Gap 12 Estim Creat Clear Calc 74.6 Estimated GFR 58 POC Glucose 120 H Random Glucose 133 H Estimat Average Glucose Hemoglobin A1c % Calcium 8.7 Total Bilirubin Direct Bilirubin AST ALT Alkaline Phosphatase Total Protein Albumin Triglycerides Cholesterol LDL Cholesterol, Calc HDL Cholesterol COVID-19 ([facility]RANCE) COVID-19 Clin Com 04/18/22 04/18/22 06:24 07:16 MCV MCH MCHC RDW Plt Count MPV Immature Gran % (Auto) Neut % (Auto) Lymph % (Auto) Pike % (Auto) Eos % (Auto) Baso % (Auto) Lymph # (Auto) Pike # (Auto) Eos # (Auto) Baso # (Auto) Abs Immat Gran (auto) Absolute Neuts (auto) Absolute Nucleated RBC Nucleated RBC % (auto) Anion Gap Estim Creat Clear Calc Estimated GFR POC Glucose 126 H Random Glucose Estimat Average Glucose Hemoglobin A1c % Calcium Total Bilirubin Direct Bilirubin AST ALT Alkaline Phosphatase Total Protein Albumin Triglycerides 174 Cholesterol 186 LDL Cholesterol, Calc 116 HDL Cholesterol 36 D COVID-19 ([facility]RANCE) COVID-19 Clin Com Assessment and Plan (1) Brain TIA: Status: Acute Plan 61 yo M with risk factors for CVA including DM, HTN and family history who presents with signs and symptoms suggestive of TIA. He is admitted for further work up. 1. TIA vs CVA Pts slurred speech has resolved but still has ocular symptoms CTA negative with the exception of 25% stenosis on the R internal carotid Monitor on tele and continue with stroke work up including MRI/Echo/Neurology consultation asa/statin 2. Uncontrolled DM with hypoglycemia sugars down the 40s and 50s overnight now improved continue POC, hold off on sliding scale for now and decrase lantus to 1/2 his baseline dose at home 3. HTN urgency question of his symptoms related to elevated BP. He reports normotensive BP ranges previously, but presented with SBP >200 has been started on his losartan and will re-eval bp this afternoon suspected he will need to have increase but will await for MRI to definitvely r/o cva 4. Morbid obesity Contributing to his risk factors for CVA; outpatient weight loss mgmt referral to be considered Full Code DVT pptx -- pt requires on going hospitalization for work up of TIA vs possible CVA. Has mutiple risk factors and hence this needs to be completed in the acute setting and now as an outpatient. Quality Stroke Does the patient have a stroke diagnosis?: No VTE Prior VTE?: No VTE Risk Level:: Medical - moderate - high VTE Device Contraindication: Treatment Not Indicated VTE Drug Contraindication: N/A - Med Ordered
--- NOTE | 2022-04-18 10:30 | PC.NURSE ---
bedside echocardiogram being done
--- NOTE | 2022-04-18 10:46 | PC.NURSE ---
rn to rn report given to kelvin. pt aware of plan of care.
[2022-04-18 11:47] LABS: Glucose, Whole Blood 179 mg/dL (60-115)
--- NOTE | 2022-04-18 14:41 | MHC.STROKE ---
I MET WITH PATIENT TODAY TO PROVIDE STROKE EDUCATION. 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 AT 08:15 WHILE AT WORK HIS COWORKER ASKED HIM IF HE WAS DRUNK BECAUSE HE WAS SLURRING HIS WORDS. HE IMMEDIATELY CHECK HIS OWN GLUCOSE AND IT WAS 106. HE DID NOT SEEK MEDICAL ATTENTION UNTIL LATER IN THE MORNING. HE DOES SEE DR MALIK FOR CRF, HE HAS ADULT ONSET DIABETES AND HE'S BEEN TRYING. HE SAID TYPICALLY HIS SBP HAS BEEN AROUND 120 ALTHOUGH IT WAS 150 LAST WEEK. I REVIEWED HIS STROKE RISK FACTORS, CRF, DM, HTN, HDL, OBESITY, OCCASIONAL ETOH, I DID CHECK HIS VISUAL ANTHONY AND THAT WAS FINE ALTHOUGH HE SAID HE CAN'T READ HIS TEXTS ON HIS PHONE AND IT LIKE HE'S LOOKING THROUGH [employer] . HE WENT TO MRI BUT DUE TO HIS SIZE AND SHAPE AND CLAUSTROPHOBIA HE WAS UNABLE TO HAVE THE MRI. I REVIEWED ALL OF THIS WITH DR MILLAN AND HE WILL BE SEEING THE PATIENT WHEN HE ROUNDS. HE IS ABLE TO AMBULATE, HE DOES WEAR A BRACE ON THE LEFT KNEE WHICH HIS HELPS HIM WITH. ALL STROKE MEASURES MET.
[2022-04-18 16:30] LABS: Glucose, Whole Blood 210 mg/dL (60-115)
--- NOTE | 2022-04-18 17:19 | PM.NEUROCN ---
History of Present Illness Data of Consult Service Date: 04/18/22 Primary Care Provider: Alli Kelly III, MD [facility] Reason for consult: transient dysarthria and blurred vision This is a 61-year-old male with a history of insulin-dependent diabetes mellitus, mixed hyperlipidemia, essential hypertension who presents to the emergency department for evaluation of lightheaded dizziness after awakening in the morning and dysarthria around 08:00 where his speech was slurred and he sounded drunk.? Patient also had blurring of vision at that time.? His dizziness cleared and speech returned to baseline in 3 hours by the time patient came to the ER.?Blurred vision persists. No similar symptoms in the past.? No history of stroke or TIA.? Patient checked his blood glucose and it was in the 110s.?Patient denies fever, chills, chest discomfort, palpitations, abdominal discomfort, changes in urinary or bowel habits. CT brain an dhead and neck CTA were unremarkable. He was too large to fit in the MRI unit. He feels hi svision i sstill blurred in both eyes. [facility] Past Medical History Medical History Hyperlipidemia Hypertension Insulin dependent diabetes Functional capacity: independent ambulation Social History Social History Alcohol intake: current Alcohol intake frequency: holidays/special occasions only Patient Tobacco Use Status: Never used Tobacco Substance Use Type: Marijuana service: No Current occupational status: employed Meds Allergies Allergy/AdvReac Type Severity Reaction Status Date / Time No Known Allergies Allergy Unverified 03/11/20 15:44 Active Medications: Current Medications Acetaminophen (Acetaminophen 325 Mg Tablet) 650 mg PO Q6H PRN PRN Reason: Pain, Mild (Pain Scale 1-3) Aspirin (Aspirin Enteric Coated 81 Mg Tablet.) 81 mg PO DAILY [facility] Last Admin: 04/18/22 10:03 Dose: 81 mg Atorvastatin Calcium (Atorvastatin Calcium 80 Mg Tablet) 80 mg PO BEDTIME [facility] Dextrose (Dextrose 50 % 25 Gm/50 Ml Syringe) 25 gm IVPUSH Q15M PRN; Protocol PRN Reason: per Hypoglycemia Standing Ord. Enoxaparin Sodium (Enoxaparin Sodium 40 Mg/0.4 Ml Syringe) 40 mg SUBCUT Q24H [facility] Last Admin: 04/17/22 22:04 Dose: 40 mg Fenofibrate (Fenofibrate,Micronized 134 Mg Capsule) 134 mg PO BEDTIME [facility] Glucose (Glucose Gel 15 Gm Gel..Gram.) 15 gm PO Q15M PRN; Protocol PRN Reason: per Hypoglycemia Standing Ord. Insulin Glargine (Insulin Glargine,Hum.Rec.Anlog 100 Unit/Ml 10 Ml Vial) 40 unit SUBCUT BEDTIME [facility] Losartan Potassium (Losartan Potassium 25 Mg Tablet) 25 mg PO DAILY [facility]; Protocol Last Admin: 04/18/22 10:03 Dose: 25 mg Melatonin (Melatonin 3 Mg Tablet) 6 mg PO BEDTIME PRN PRN Reason: Insomnia Ondansetron HCl (Ondansetron Hcl 4 Mg/2 Ml Vial) 4 mg IVPUSH Q8H PRN PRN Reason: Nausea and Vomiting Home Medications Medication Instructions Recorded Confirmed Last Taken Type cholecalciferol (vitamin D3) 50 50 mcg PO DAILY 04/17/22 04/17/22 04/16/22 History mcg (2,000 unit) tablet fenofibrate 120 mg tablet 1 tab PO BEDTIME 04/17/22 04/17/22 04/16/22 History insulin glargine 100 unit/mL (3 80 unit subcut BEDTIME 04/17/22 04/17/22 04/16/22 History mL) subcutaneous pen (Lantus Solostar U-100 Insulin) losartan 25 mg tablet 1 tab PO DAILY 04/17/22 04/17/22 04/16/22 History sildenafil 25 mg tablet 25 mg PO DAILY PRN Sexual Activity 04/17/22 04/17/22 Unknown History simvastatin 80 mg tablet 80 mg PO BEDTIME 04/17/22 04/17/22 04/16/22 History Physical Exam Vital Signs: Vital Signs: Last Vital Signs Temp 99.2 F 04/18/22 15:33 Pulse 77 04/18/22 15:33 Resp 12 04/18/22 15:33 BP 174/92 H 04/18/22 15:33 Pulse Ox 97 04/18/22 15:33 O2 Del Method 04/18/22 15:33 BMI result Body Mass Index 40.7 Neuro: Other: Normal non focal exam Doll's-Eye Reflex: Absent Results Labs CBC & Chem 7: 04/18/22 06:24 04/18/22 06:24 Labs: Short CBC 04/18/22 Range/Units 06:24 WBC 8.2 (4.8-10.8) X10*3/uL Hgb 11.6 L (14.0-18.0) g/dl Hct 36.0 L (42.0-52.0) % Plt Count 310 (160-400) X10*3/uL BMP 04/18/22 06:24 Sodium 143 Potassium 4.3 D Chloride 107 Carbon Dioxide 28 BUN 24 H Creatinine 1.26 Calcium 8.7 Assessment and Plan (1) Brain TIA: Status: Acute Probable posterior circulation ischemic event, r/o small occipital infarct. Recom. OPEN MRI either inpt or OP. Echo. Pulmonary f/u for persistent shortness of breath. OP [place] for LYNSEY, Strat ASA 325mg qd. Check lipid profile. Sugar control. Plan 61 yo M with risk factors for CVA including DM, HTN and family history who presents with signs and symptoms suggestive of TIA. He is admitted for further work up. 1. TIA vs CVA Pts slurred speech has resolved but still has ocular symptoms CTA negative with the exception of 25% stenosis on the R internal carotid Monitor on tele and continue with stroke work up including MRI/Echo/Neurology consultation asa/statin 2. Uncontrolled DM with hypoglycemia sugars down the 40s and 50s overnight now improved continue POC, hold off on sliding scale for now and decrase lantus to 1/2 his baseline dose at home 3. HTN urgency question of his symptoms related to elevated BP. He reports normotensive BP ranges previously, but presented with SBP >200 has been started on his losartan and will re-eval bp this afternoon suspected he will need to have increase but will await for MRI to definitvely r/o cva 4. Morbid obesity Contributing to his risk factors for CVA; outpatient weight loss mgmt referral to be considered Full Code DVT pptx -- pt requires on going hospitalization for work up of TIA vs possible CVA. Has mutiple risk factors and hence this needs to be completed in the acute setting and now as an outpatient. Procedures Date of Service Date of Service: 04/18/22
[2022-04-18 20:14] LABS: Glucose, Whole Blood 246 mg/dL (60-115)
[2022-04-18] MEDS: Enoxaparin Sodium 40 MG/0.4 ML SYRINGE SUBCUT (21:01)
[2022-04-18] MEDS: Insulin Glargine,Hum.rec.anlog 100 UNIT/ML 10 ML VIAL 40 UNIT SUBCUT (21:01)
[2022-04-18] MEDS: Atorvastatin Calcium 80 MG TABLET PO (21:01)
[2022-04-18] MEDS: Fenofibrate,Micronized 134 MG CAPSULE PO (21:01)
[2022-04-19 03:39] VITALS: BP 164/74; PULSE 70; RESP 20; TEMP 36.7; O2SAT 94
[2022-04-19 07:52] LABS: Glucose, Whole Blood 111 mg/dL (60-115)
[2022-04-19 08:00] VITALS: BP 152/72; PULSE 74; RESP 20; TEMP 36.6; O2SAT 94
[2022-04-19] MEDS: Aspirin Enteric Coated 81 MG TABLET.DR PO (09:32)
[2022-04-19] MEDS: Losartan Potassium 25 MG TABLET PO (09:33)
[2022-04-19 10:06] LABS: Troponin-I High Sensitivity 20.3 ng/L (<3.5-35.0)
[2022-04-19 11:42] LABS: Glucose, Whole Blood 170 mg/dL (60-115)
[2022-04-19 11:56] VITALS: BP 178/88; PULSE 77; RESP 18; TEMP 36.4; O2SAT 95
--- NOTE | 2022-04-19 12:41 | P.CONCA_ITS ---
History of Present Illness History of Present Illness Date of Service: 04/19/22 Requesting physician: Rome Manuel Consult reason: other (Abnormal echocardiogram) Chief complaint: TIA Narrative: I was consulted to see Jerson in cardiology consultation today as he was admitted with dysarthria and dizziness with suggestion of possible left c erebellar infarct. He is noted to have bilateral nonobstructive carotid disease with ulcerated plaquing possible right internal carotid artery. He had an echocardiogram was a workup for stroke which showed normal LV systolic function with inferior inferoseptal wall motion abnormality. Cardiology consult was sought for the same. EKG shows left anterior fascicular block with leftward axis, this could hide in inferior wall infarct. Patient does not recall to ever having prior myocardial infarction. Does not recall any chest discomfort. He has multiple risk factors including diabetes although he says his blood pressures been usually well controlled. Patient does complain of exertional sh ortness of breath but says this is been going for a while but getting worse recently. Chest discomfort Review of Systems Constitutional: Constitutional: Reports no additional constitutional comp laints Eyes: Eyes: Reports blurry vision ENT: Reports system reviewed and no additional complaints, except as docume nted and Reports dizziness Cardiovascular: Cardiovascular: Reports no additional cardiovascular complaints Respiratory: Respiratory: Reports no additional respiratory complaints Gastrointestinal: Gastrointestinal: Reports no additional gastrointestinal complaints Musculoskeletal: Musculoskeletal: Reports no additional musculoskeletal complaints Neurologic: Reports dizziness Psychiatric: Psychiatric: Reports no additional psychiatric complaints Endocrine: Endocrine: Reports no additional endocrine complaints PMFSH Past Medical History Medical History Hyperlipidemia Hypertension Insulin dependent diabetes Functional capacity: independent ambulation Social History Social History Alcohol intake: current Alcohol intake frequency: holidays/special occasions only Patient Tobacco Use Status: Never used Tobacco Substance Use Type: Marijuana service: No Current occupational status: employed Meds Allergies Allergy/AdvReac Type Severity Reaction Status Date / Time No Known Allergies Allergy Unverified 03/11/20 15:44 Active Medications: Current Medications Acetaminophen (Acetaminophen 325 Mg Tablet) 650 mg PO Q6H PRN PRN Reason: Pain, Mild (Pain Scale 1-3) Aspirin (Aspirin Enteric Coated 81 Mg Tablet.) 81 mg PO DAILY DELON Last Admin: 04/19/22 09:32 Dose: 81 mg Atorvastatin Calcium (Atorvastatin Calcium 80 Mg Tablet) 80 mg PO BEDTIME DELON Last Admin: 04/18/22 21:01 Dose: 80 mg Dextrose (Dextrose 50 % 25 Gm/50 Ml Syringe) 25 gm IVPUSH Q15M PRN; Protocol PRN Reason: per Hypoglycemia Standing Ord. Enoxaparin Sodium (Enoxaparin Sodium 40 Mg/0.4 Ml Syringe) 40 mg SUBCUT Q24H DELON Last Admin: 04/18/22 21:01 Dose: 40 mg Fenofibrate (Fenofibrate,Micronized 134 Mg Capsule) 134 mg PO BEDTIME DELON Last Admin: 04/18/22 21:01 Dose: 134 mg Fenofibrate (Fenofibrate,Micronized 134 Mg Capsule) 134 mg PO BEDTIME DELON Glucose (Glucose Gel 15 Gm Gel..Gram.) 15 gm PO Q15M PRN; Protocol PRN Reason: per Hypoglycemia Standing Ord. Insulin Glargine (Insulin Glargine,Hum.Rec.Anlog 100 Unit/Ml 10 Ml Vial) 40 unit SUBCUT BEDTIME DELON Last Admin: 04/18/22 21:01 Dose: 40 unit Losartan Potassium (Losartan Potassium 25 Mg Tablet) 25 mg PO DAILY [facility]; Protocol Last Admin: 04/19/22 09:33 Dose: 25 mg Melatonin (Melatonin 3 Mg Tablet) 6 mg PO BEDTIME PRN PRN Reason: Insomnia Ondansetron HCl (Ondansetron Hcl 4 Mg/2 Ml Vial) 4 mg IVPUSH Q8H PRN PRN Reason: Nausea and Vomiting Vitamin D (Cholecalciferol (Vitamin D3) 25 Mcg Tablet) 50 mcg PO DAILY [facility] Home Medications Medication Instructions Recorded Confirmed Last Taken Type cholecalciferol (vitamin D3) 50 50 mcg PO DAILY 04/17/22 04/17/22 04/16/22 History mcg (2,000 unit) tablet fenofibrate 120 mg tablet 1 tab PO BEDTIME 04/17/22 04/17/22 04/16/22 History insulin glargine 100 unit/mL (3 80 unit subcut BEDTIME 04/17/22 04/17/22 04/16/22 History mL) subcutaneous pen (Lantus Solostar U-100 Insulin) losartan 25 mg tablet 1 tab PO DAILY 04/17/22 04/17/22 04/16/22 History sildenafil 25 mg tablet 25 mg PO DAILY PRN Sexual Activity 04/17/22 04/17/22 Unknown History simvastatin 80 mg tablet 80 mg PO BEDTIME 04/17/22 04/17/22 04/16/22 History Physical Exam Vital Signs: Vital Signs: Last Vital Signs Temp 97.6 F 04/19/22 11:56 Pulse 77 04/19/22 11:56 Resp 18 04/19/22 11:56 BP 178/88 H 04/19/22 11:56 Pulse Ox 95 04/19/22 11:56 O2 Del Method 04/19/22 11:56 BMI result Body Mass Index 40.7 Const: General: cooperative, comfortable, no acute distress, alert and awake Nutritional Appearance: obese morbidly obese Orientation/consciousness: patient oriented x3 Limitations: no limitations HEENT: Head: Yes normocephalic and Yes atraumatic Neck: Neck: Yes trachea midline, Yes supple and Yes no JVD Chest: Chest palpation & inspection: normal inspection of the chest Resp: Effort & Inspection: normal respiratory effort Auscultation: clear to auscultation bilaterally Cardio: Jugular venous distension: no JVD Palpation: normal PMI Rate: regular rate Rhythm: regular rhythm Heart sounds: S1 normal heart sound present, S2 normal heart sound present, no click, no gallops, no murmurs and no rubs GI: Inspection: Yes obesity Auscultation: normal bowel sounds Skin: General skin exam: no rashes or lesions noted Neuro: General: patient oriented x3 and no focal motor deficits Extrem: General: Yes no clubbing, cyanosis or edema Psych: Appearance: grossly normal Objective Labs and Meds Result diagrams: 04/18/22 06:24 04/18/22 06:24 Lab results: Laboratory Results - last 24 hr 04/18/22 04/18/22 04/18/22 13:04 16:26 20:07 POC Glucose 210 H 246 H Troponin I High Sens 22.0 04/19/22 04/19/22 04/19/22 07:39 09:36 11:38 POC Glucose 111 170 H Troponin I High Sens 20.3 Assessment and Plan (1) Abnormal echocardiogram: Status: Acute Abnormal echocardiogram suggestive prior coronary artery disease with prior inferior myocardial infarction P EKG suggests left anterior fascicular block which could hide inferior wall myocardial function. He does have multiple risk factors but no obvious prior symptoms suggestive myocardial infarction but having exertional shortness of breath which could be anginal equivalent. Once his neurologic issues have resolved will schedule him for an outpatient on a myocardial perfusion imaging. Discussed with him the management. Given his recent neurologic event I would consider dual antiplatelet therapy especially with ulcerated right carotid artery plaque. Also agree with change of therapy to atorvastatin 80 mg daily. Continue aggressive diabetes control. Also blood pressure needs to be better control and would consider dual therapy with Norvasc and losartan. Next time in terms of his neurologic event he is at risk for developing atrial fibrillation given his body habitus other risk factors and would consider of 30 day event monitor as outpatient. Also would consider limited echocardiogram bubble contrast to rule out intracardiac shunting. Will sign of the case at this point time and follow-up as outpatient. Thank you for allowing me to partake in his care Procedures Date of Service Date of Service: 04/19/22
[2022-04-19] MEDS: amLODIPine Besylate 5 MG TABLET PO (13:54)
[2022-04-19] MEDS: Clopidogrel Bisulfate 75 MG TABLET PO (13:54)
[2022-04-19 15:49] VITALS: BP 157/69; PULSE 79; RESP 18; TEMP 36.6; O2SAT 95
--- NOTE | 2022-04-19 15:57 | HO.PM.IMPN ---
Subjective Subjective Date of Service: 04/19/22 Interval History: Feeling better has persistent blurriness of vision, speech impairment resolved, feels lightheaded ,complaining of chronic shortness of breath that is ongoing for a year and a half after he had COVID, denies chest pain, no palpitations, had left upper abdominal discomfort times few days he feels he pulled a muscle pain is constant with no abdominal symptoms of nausea vomiting abdominal discomfort no new neurological symptoms since admission. Patient is being followed for episodes of blurry vision and slurred speech and an abnormal echocardiogram that is showing wall motion abnormality of inferior and inferior septal segments Review of Systems Review of Systems: Yes all other systems are reviewed and are negative Physical Exam Vital Signs: Vital Signs: Last Vital Signs Temp 97.8 F 04/19/22 15:49 Pulse 79 04/19/22 15:49 Resp 18 04/19/22 15:49 BP 157/69 H 04/19/22 15:49 Pulse Ox 95 04/19/22 15:49 O2 Del Method 04/19/22 15:49 BMI result Body Mass Index 40.7 Const: Other: General awake alert, in no acute distress. Neck supple no JVD. CVS regular rate rhythm, Respiratory lungs clear to auscultation, no respiratory distress, no wheeze, no rhonchi. Gastrointestinal abdomen soft, nontender, bowel sounds audible, no guarding , no rigidity. Extremities no edema. Neuro speech clear, moving all 4 extremities . Skin no rash Psych appropriate affect Objective Data Active Medications Acetaminophen (Acetaminophen 325 Mg Tablet) 650 mg PO Q6H PRN PRN Reason: Pain, Mild (Pain Scale 1-3) Amlodipine Besylate (Amlodipine Besylate 5 Mg Tablet) 5 mg PO DAILY [facility]; Protocol Last Admin: 04/19/22 13:54 Dose: 5 mg Documented By: PATRICK Aspirin (Aspirin Enteric Coated 81 Mg Tablet.) 81 mg PO DAILY [facility] Last Admin: 04/19/22 09:32 Dose: 81 mg Documented By: PATRICK Atorvastatin Calcium (Atorvastatin Calcium 80 Mg Tablet) 80 mg PO BEDTIME [facility] Last Admin: 04/18/22 21:01 Dose: 80 mg Documented By: FOREIGN Clopidogrel Bisulfate (Clopidogrel Bisulfate 75 Mg Tablet) 75 mg PO DAILY [facility] Last Admin: 04/19/22 13:54 Dose: 75 mg Documented By: PATRICK Dextrose (Dextrose 50 % 25 Gm/50 Ml Syringe) 25 gm IVPUSH Q15M PRN; Protocol PRN Reason: per Hypoglycemia Standing Ord. Enoxaparin Sodium (Enoxaparin Sodium 40 Mg/0.4 Ml Syringe) 40 mg SUBCUT Q24H [facility] Last Admin: 04/18/22 21:01 Dose: 40 mg Documented By: FOREIGN Fenofibrate (Fenofibrate,Micronized 134 Mg Capsule) 134 mg PO BEDTIME DELON Last Admin: 04/18/22 21:01 Dose: 134 mg Documented By: FOREIGN Glucose (Glucose Gel 15 Gm Gel..Gram.) 15 gm PO Q15M PRN; Protocol PRN Reason: per Hypoglycemia Standing Ord. Insulin Glargine (Insulin Glargine,Hum.Rec.Anlog 100 Unit/Ml 10 Ml Vial) 40 unit SUBCUT BEDTIME [facility] Last Admin: 04/18/22 21:01 Dose: 40 unit Documented By: FOREIGN Losartan Potassium (Losartan Potassium 25 Mg Tablet) 25 mg PO DAILY [facility]; Protocol Last Admin: 04/19/22 09:33 Dose: 25 mg Documented By: PATRICK Melatonin (Melatonin 3 Mg Tablet) 6 mg PO BEDTIME PRN PRN Reason: Insomnia Ondansetron HCl (Ondansetron Hcl 4 Mg/2 Ml Vial) 4 mg IVPUSH Q8H PRN PRN Reason: Nausea and Vomiting Vitamin D (Cholecalciferol (Vitamin D3) 25 Mcg Tablet) 50 mcg PO DAILY [facility] Labs CBC & Chem 7: 04/18/22 06:24 04/18/22 06:24 Labs: Laboratory Results - last 24 hr 04/18/22 04/18/22 04/19/22 16:26 20:07 07:39 POC Glucose 210 H 246 H 111 Troponin I High Sens 04/19/22 04/19/22 09:36 11:38 POC Glucose 170 H Troponin I High Sens 20.3 Assessment and Plan (1) Brain TIA: Status: Acute Plan 61 yo M with risk factors for CVA including DM, HTN and family history who presents with signs and symptoms suggestive of TIA. He is admitted for further work up. 1. Slurred speech and blurred vision Has persistent mild blurred vision and dizziness Likely acute CVA CTA negative with the exception of 25% stenosis on the R internal carotid Seen by Dr. James from Neurology he feels patient likely had posterior circulation ischemic event, he recommend aspirin 325 mg daily, since patient unable to fit into MRI machine he recommend open MRI either inpatient or outpatient Will continue aspirin, statin and good blood pressure control Echo showed inferior wall motion abnormality 2. Uncontrolled DM Noted to have hypoglycemia now resolved continue Lantus follow blood sugars closely on diabetic diet 3. HTN urgency Continue to have persistent elevated blood pressure on home dose of losartan 25 mg daily will add Norvasc 5 mg daily and follow blood pressure closely 4. Morbid obesity Contributing to his risk factors for CVA; recommend outpatient weight loss management 5. abnormal echo with inferior wall motion abnormality Seen by Cardiology they recommend outpatient stress test, 30 day event recorder and outpatient bubble study echocardiogram, case discussed with Dr. Mcfarland recommend dual antiplatelet treatment, likely patient has underlying cardiac disease and also due to ulcerated right carotid artery plaque. 6. Chronic shortness of breath with no acute exacerbation as per patient has symptoms for 1-1/2 years after he had COVID patient needs outpatient pulmonary evaluation for obstructive sleep apnea Full Code DVT pptx -- with Lovenox pt requires on going hospitalization due to persistent dizziness, elevated blood pressures need medication adjustment. Quality Stroke Does the patient have a stroke diagnosis?: No VTE Prior VTE?: No VTE Risk Level:: Medical - moderate - high VTE Device Contraindication: Treatment Not Indicated VTE Drug Contraindication: N/A - Med Ordered
[2022-04-19 16:55] LABS: Glucose, Whole Blood 217 mg/dL (60-115)
[2022-04-19 19:45] VITALS: BP 150/80; PULSE 77; RESP 18; TEMP 37.1; O2SAT 94
[2022-04-19 20:00] LABS: Glucose, Whole Blood 229 mg/dL (60-115)
[2022-04-19] MEDS: Insulin Glargine,Hum.rec.anlog 100 UNIT/ML 10 ML VIAL 40 UNIT SUBCUT (21:52)
[2022-04-19] MEDS: Enoxaparin Sodium 40 MG/0.4 ML SYRINGE SUBCUT (21:52)
[2022-04-19] MEDS: Fenofibrate,Micronized 134 MG CAPSULE PO (21:53)
[2022-04-19] MEDS: Atorvastatin Calcium 80 MG TABLET PO (21:53)
[2022-04-19 23:53] VITALS: BP 155/76; PULSE 77; RESP 16; TEMP 37.1; O2SAT 95
[2022-04-20 03:37] VITALS: BP 154/69; PULSE 75; RESP 18; TEMP 36.8; O2SAT 97
[2022-04-20 07:14] VITALS: BP 171/89; PULSE 75; RESP 20; TEMP 37.2; O2SAT 95
[2022-04-20 07:48] LABS: Glucose, Whole Blood 73 mg/dL (60-115)
[2022-04-20] MEDS: Aspirin Enteric Coated 81 MG TABLET.DR PO (08:02)
[2022-04-20] MEDS: Clopidogrel Bisulfate 75 MG TABLET PO (08:02)
[2022-04-20] MEDS: amLODIPine Besylate 5 MG TABLET PO (08:02)
[2022-04-20] MEDS: Cholecalciferol (Vitamin D3) 25 MCG TABLET 50 MCG PO (08:02)
[2022-04-20] MEDS: Acetaminophen 325 MG TABLET 650 MG PO (08:02)
[2022-04-20] MEDS: Losartan Potassium 50 MG TABLET PO (08:54)
[2022-04-20 10:50] VITALS: BP 160/67; PULSE 72; RESP 16; TEMP 36.8; O2SAT 96
[2022-04-20 11:24] LABS: Glucose, Whole Blood 184 mg/dL (60-115)
--- NOTE | 2022-04-20 14:38 | P.DS_ITS ---
DS: Providers Provider Date of Service: 04/20/22 Date of admission: 04/17/22 19:57 Primary care physician: Alli Kelly III, MD Consults: 04/17/22 19:57 Consult to Neurology Routine Consulting Provider: Beatriz James Reason for consultation: TIA Has provider been notified: No 04/19/22 09:23 Consult to Cardiology Routine Consulting Provider: Martín Bradford Reason for consultation: WMA on echo Has provider been notified: No DS: Diagnosis Discharge Diagnosis (1) Brain TIA: Status: Acute DS: Summary Hospital Course Hospital Course: Chief Complaint: Dysarthria This is a 61-year-old male with a pertinent history of insulin-dependent diabetes mellitus, mixed hyperlipidemia, essential hypertension who presents to the emergency department for evaluation of dysarthria.? Patient states around 08:00 his fleet administrative assistant at home noticed change in speech.? Patient states that his speech was slurry and his fleet administrative assistant told him that he sounded drunk.? Patient also had blurring of vision at that time.? His speech returned to baseline in 2 hours by the time patient came to the ER.? No similar symptoms in the past.? No history of stroke or TIA.? Patient checked his blood glucose and it was in the 110s.? No rhythmic jerking movement of extremities, no tongue bite, no loss of consciousness.? Patient denies fever, chills, chest discomfort, palpitations, abdominal discomfort, changes in urinary or bowel habits In the emergency department, CT head was without any acute deficits. 61 yo M with risk factors for CVA including DM, HTN and family history who presents with signs and symptoms suggestive of TIA. He is admitted for further work up. 1. Slurred speech and blurred vision patient admitted to medical floor with close neurological followup a CTA head and neck showed 25% stenosis of the right internal carotid artery otherwise no other acute abnormality, Due to patient's size and claustrophobia and MRI brain was not obtained patient seen by jem Gonzales from Neurology he felt patient likely had posterior circulation ischemic event he recommended aspirin and outpatient MRI Patient's speech has returned to baseline but continued to have bilateral blurred vision therefore recommended outpatient follow-up with Ophthalmology Patient is being discharged home on aspirin, statin on recommended close blood pressure following, and echocardiogram showed inferior wall motion abnormality therefore seen by automotive technician they recommend outpatient stress test, 30 day event recorder and outpatient bubble study, they also recommended dual antiplatelet therapy, therefore patient is also being discharged home on Plavix 75 mg daily. 2. Uncontrolled DM recommended to continue Lantus and diabetic diet 3. HTN urgency Blood pressure better controlled with increased dose of losartan to 50 mg and addition of Norvasc 5 mg by mouth daily recommended outpatient blood pressure monitoring 4. Morbid obesity Contributing to his risk factors for CVA; recommend outpatient weight loss management 5. Chronic shortness of breath with no acute exacerbation as per patient has symptoms for 1-1/2 years after he had COVID patient needs outpatient pulmonary evaluation for obstructive sleep apnea Time Spent with Patient Time attestation: Total time spent providing and/or coordinating discharge services: Discharge coordination time: Greater than 30 minutes Quality: Safe Use of Opioids Does Pt have an Active Cancer Diagnosis on the Problem List?: No Quality: Stroke Does the patient have a stroke diagnosis?: No Physical Exam Vital Signs: Vital Signs: Last Vital Signs Temp 98.3 F 04/20/22 10:50 Pulse 72 04/20/22 10:50 Resp 16 04/20/22 10:50 BP 160/67 H 04/20/22 10:50 Pulse Ox 96 04/20/22 10:50 O2 Del Method 04/20/22 10:50 BMI result Body Mass Index 40.7 Const: Other: General awake alert, in no acute distress.? Neck supple no JVD. CVS? regular rate rhythm, Respiratory lungs clear to auscultation, no respiratory distress, no wheeze, no rhonchi. Gastrointestinal abdomen soft, nontender, bowel sounds audible, no guarding , no rigidity. Extremities no? edema. Neuro? speech clear, moving all 4 extremities . Skin no rash Psych appropriate affect DS: Data Data Completed and Pending Labs on day of discharge: Laboratory Results - last 24 hr 04/19/22 04/19/22 04/20/22 16:50 19:48 07:19 POC Glucose 217 H 229 H 73 04/20/22 11:20 POC Glucose 184 H Discharge Plan Discharge Anticipated Discharge Date/Time: 04/20/22 14:30 Patient Disposition: Home, Self-Care Discharge Diagnosis: Dizziness/blurred vision Posterior circulation ischemic event Hypertensive urgency Diabetes mellitus Abnormal echo Referrals: Alli Kelly III, MD [Primary Care Provider] - 1 Week Discharge Medications: New losartan 50 mg Tablet 50 mg PO DAILY Qty: 30 0RF Protocol: Hold for SBP< HOLD for SBP < : 90 atorvastatin 80 mg Tablet 80 mg PO BEDTIME Qty: 30 0RF clopidogrel 75 mg Tablet 75 mg PO DAILY Qty: 30 0RF amlodipine 5 mg Tablet 5 mg PO DAILY Qty: 30 0RF Protocol: Hold for SBP< HOLD for SBP < : 90 aspirin 81 mg Tablet,Delayed Release (Dr/Ec) 81 mg PO DAILY Qty: 30 0RF Continued sildenafil 25 mg tablet 25 mg PO DAILY PRN (Reason: Sexual Activity) fenofibrate 120 mg tablet 1 tab PO BEDTIME cholecalciferol (vitamin D3) 50 mcg (2,000 unit) Tablet 50 mcg PO DAILY Changed insulin glargine [Lantus Solostar U-100 Insulin] 100 unit/mL (3 mL) insulin pen 30 unit subcut BEDTIME Qty: 15 0RF Discontinued simvastatin 80 mg tablet 80 mg PO BEDTIME losartan 25 mg tablet 1 tab PO DAILY Discharge Orders: Discharge Order (Routine); Ordered 04/20/22 Ordered By: Rome Manuel Diet: Diabetic diet Activity on Discharge: As tolerated Stand Alone Forms: Patient Portal Discharge page Care Plan Goals: Dizziness resolved persistent blurred vision both eyes, steady gait likely posterior circulation ischemic event, MRI not done due to patient's size and claustrophobia recommend open MRI as outpatient to be arranged by primary care physician Abnormal echocardiogram with wall motion abnormality therefore recommend outpatient follow-up with Cardiology Dr. Hernandez for outpatient stress test , 30 day event recorder Patient is placed on Norvasc 5 mg, dose of Cozaar increased to 50 mg due to elevated blood pressure Dose of Lantus reduced due to low blood sugars this morning recommend to follow diabetic diet at home and monitor blood sugars increase dose of Lantus if noted to have elevated blood sugars above 150 Outpatient follow-up with ophthalmology for blurred vision Outpatient sleep study Health Concerns: Strongly recommend low-calorie, low-fat diet recommend daily ambulation Plan of Treatment: Outpatient follow-up with primary care physician call to make an appointment in next 7-10 days Outpatient follow-up Dr. Bradford from Cardiology for outpatient cardiology workup Assessment: As above Discharge Date/Time: 04/20/22 17:45
--- NOTE | 2022-04-20 14:53 | MHC.CM.PN ---
Male 61 DX TIA CVA+ Cardiology has made medication changes. Patient will follow up Outpatient with cardiology. Home self care with providing transportation home.
[2022-04-20 15:54] VITALS: BP 157/87; PULSE 78; RESP 19; TEMP 36.6
[2022-04-20 16:22] LABS: Glucose, Whole Blood 306 mg/dL (60-115)
--- NOTE | 2022-04-20 18:19 | PC.NURSE ---
Alert and oriented. Denies pain, VSS, afebrile, no acute resp. distress noted. Took all schedule meds as ordered. New order to discharge patient home. Went over discharge instructions, follow up apt and medications administrations with patient, verbalized understanding back. Staff wheeled patient to the lobby, left via car with his .
== END 2022-04-20 17:45 | disposition home or self-care (01) | DRG 45 ==
LOC: HO.ED 19:35 → HO.EDOVER 20:08 → HO.IMC 04-18 10:52
PROVIDERS: Family Medicine; Admitting Provider Student in an Organized Health Care Education/Training Program; Emergency Provider Emergency Medicine; PCP Internal Medicine; Visit Provider Hospitalist
DX: I63.9 Cerebral infarction, unspecified (principal); E11.22 Type 2 diabetes mellitus with diabetic chronic kidney disease; E11.649 Type 2 diabetes mellitus with hypoglycemia without coma; I12.9 Hypertensive chronic kidney disease with stage 1 through stage 4 chronic kidney disease, or unspecified chronic kidney disease; E66.01 Morbid (severe) obesity due to excess calories; R93.1 Abnormal findings on diagnostic imaging of heart and coronary circulation; Z68.41 Body mass index [BMI] 40.0-44.9, adult; U09.9 Post COVID-19 condition, unspecified; R06.02 Shortness of breath; I16.0 Hypertensive urgency; R47.1 Dysarthria and anarthria; E78.2 Mixed hyperlipidemia; Z20.822 Contact with and (suspected) exposure to COVID-19; Z79.4 Long term (current) use of insulin; Z79.899 Other long term (current) drug therapy
CPT/HCPCS: 36415; 70496; 70498; 80048; 80061; 80076; 82947; 83036; 84484; 85025; 87635; 93005; 93306; 97161; 99285; J1650; Q9957; Q9967

== ENCOUNTER 2022-09-09 21:59 | Emergency (ER) | payer BC, SELFPAY ==
--- NOTE | ~2022-09-09 | XR_ITS ---
EXAMINATION: XR CHEST CLINICAL INFORMATION: Shortness of breath COMPARISON: None available. TECHNIQUE: Frontal portable view of the chest was obtained. 10:52 PM FINDINGS: Lungs are clear. No pulmonary vascular congestion. There is no pleural effusion. The heart size is normal. The cardiac and mediastinal contours are normal. There are multilevel degenerative changes of dorsal spine. XR/XR chest 1V IMPRESSION: Unremarkable examination.
--- NOTE | 2022-09-09 22:01 | ECG_ITS ---
Test Reason : CHEST PAIN Blood Pressure : / mmHG Vent. Rate : 084 BPM Atrial Rate : 084 BPM P-R Int : 160 ms QRS Dur : 110 ms QT Int : 366 ms P-R-T Axes : 038 -60 073 degrees QTc Int : 432 ms Normal sinus rhythm Left anterior fascicular block Moderate voltage criteria for LVH, may be normal variant ( R in aVL , Abelino product ) Cannot rule out Anterior infarct (cited on or before 06-NOV-2017) Abnormal ECG When compared with ECG of 18-APR-2022 13:08, No significant change was found Referred By: Generic ED Physician Electronically Signed By:Harrison Ni
[2022-09-09 22:09] VITALS: BP 163/80; PULSE 88; RESP 24; TEMP 36.6; O2SAT 98; BMI 43.6
--- NOTE | 2022-09-09 22:28 | ED.CHESTPAIN ---
HPI - Chest Pain General Chief Complaint: Chest Pain Stated Complaint: sob,chest pain Time Seen by Provider: 09/09/22 22:23 Source: patient Mode of arrival: ambulatory Limitations: no limitations History of Present Illness HPI narrative: Patient obese with history of sleep apnea not on CPAP , TIA, with history of anxiety no known coronary disease had stress test 06/15 which was negative been under increased stress lately today he has to drop lost emotionally distressed was crying on arrival complaining of pain in the chest and increased shortness of breath shortness of breath going on for a while, chest pain started just prior to arrival chest pain is sharp in character localized left chest with no radiation no cough patient does have nasal congestion taking Sudafed for last few days no fever no chills Related Data Home Medications Medication Instructions Recorded Confirmed cholecalciferol (vitamin D3) 50 50 mcg PO DAILY 04/17/22 04/17/22 mcg (2,000 unit) tablet fenofibrate 120 mg tablet 1 tab PO BEDTIME 04/17/22 04/17/22 sildenafil 25 mg tablet 25 mg PO DAILY PRN Sexual Activity 04/17/22 04/17/22 Previous Rx's Medication Instructions Recorded amlodipine 5 mg tablet 5 mg PO DAILY #30 tabs 04/20/22 aspirin 81 mg tablet,delayed 81 mg PO DAILY #30 tabs 04/20/22 release atorvastatin 80 mg tablet 80 mg PO BEDTIME #30 tabs 04/20/22 clopidogrel 75 mg tablet 75 mg PO DAILY #30 tabs 04/20/22 insulin glargine 100 unit/mL (3 30 unit (0.3 mL) subcut BEDTIME 04/20/22 mL) subcutaneous pen (Lantus #15 mL Solostar U-100 Insulin) losartan 50 mg tablet 50 mg PO DAILY #30 tabs 04/20/22 lorazepam 1 mg tablet (Ativan) 1 mg PO BEDTIME PRN anxiety #14 09/10/22 tabs Allergies Allergy/AdvReac Type Severity Reaction Status Date / Time No Known Allergies Allergy Verified 09/09/22 22:09 Review of Systems Review of Systems: Constitutional : No Weight loss, No Fever, No Chills ENT/Mouth : No sore throat, No Rhinorrhea Eyes: No Eye Pain, No Swelling Cardiovascular :+ Chest Pain, no palpitations Respiratory : No Cough, No Sputum, + shortness of breath Gastrointestinal : no Nausea, No Vomiting, No Diarrhea, No abdominal Pain, no black stools Genitourinary : No Dysuria, No Urinary Frequency Musculoskeletal : No joint pain, No Myalgias, No Joint Swelling Skin : No Skin Lesions, No rash Neuro : No Weakness, No Numbness, No Dizziness, No Headache Psych : + Anxiety/Panic, No Depression Heme/Lymph: No Bruising, No Lymphadenopathy Endocrine : No Polyuria, No Polydipsia All other systems reviewed and are negative Yes all other systems are reviewed and are negative [facility] Past Medical History Medical History Chronic kidney disease Hyperlipidemia Hypertension Insulin dependent diabetes Social History Social History Alcohol intake: current Alcohol intake frequency: holidays/special occasions only Patient Tobacco Use Status: Never used Tobacco Substance Use Type: Marijuana Advance Directives: No service: No Current occupational status: employed Physical Exam Vital Signs: Vital Signs: Last Vital Signs Temp 97.9 F 09/09/22 22:09 Pulse 75 09/09/22 23:43 Resp 15 09/09/22 23:43 BP 153/73 H 09/09/22 23:43 Pulse Ox 94 09/09/22 23:43 O2 Del Method 09/09/22 23:43 BMI result Body Mass Index 43.6 Appearance: Alert. Oriented X3. No acute distress. Anxious tearful Eyes: PERRLA, No Nystagmus ENT: Pharynx normal. Oral Mucosa moist Neck: Normal inspection. Neck supple. CVS: Normal heart rate and rhythm. Pulses normal. Left chest wall tenderness++ Respiratory: No respiratory distress. Equal air entry bilateral, no wheezing/rales/rhonchi Abdomen: Soft and nontender. Bowel sounds are present, no mass palpable, no CVA tenderness Skin: Skin warm and dry. Normal skin color. Normal skin turgor. Extremities: No lower extremity edema. No calf tenderness Neuro: Oriented X 3. No motor deficit. No sensory deficit.No cerebellar signs , cranial nerves II-XII intact Medications Administered Discontinued Medications Generic Name Dose Route Start Last Admin Trade Name Freq PRN Reason Stop Dose Admin Lorazepam 1 mg 09/09/22 22:48 09/09/22 22:54 Lorazepam 1 Mg Tablet PO 09/09/22 22:49 1 mg ONCE ONE Administration Medical Decision Making Medical Decision Making [facility] Narrative: Patient atypical chest pain stress test within last 3 months negative EKG without any ischemic changes 2 sets of cardiac enzymes negative for any delta change patient felt better after Ativan will discharge patient home advised to follow PCP Differential Diagnosis ACS/anxiety/unstable angina Lab Data [facility] Lab Attestation statement: I reviewed the patient's lab results. 09/09/22 23:04 09/09/22 23:04 Labs: Lab Results 09/09/22 09/09/22 09/09/22 Range/Units 23:04 23:04 23:04 WBC 8.5 (4.8-10.8) X10*3/uL RBC 4.28 L (4.60-5.80) X10*6/uL Hgb 11.8 L (14.0-18.0) g/dl Hct 35.7 L (42.0-52.0) % MCV 83.4 (80.0-98.0) fL MCH 27.6 (27.0-33.0) pg MCHC 33.1 (31.0-36.0) g/dl RDW 13.7 (11.0-16.0) % Plt Count 385 (160-400) X10*3/uL MPV 8.4 L (9.4-12.4) fL Immature Gran % (Auto) 0.4 (0.0-0.4) % Neut % (Auto) 66.0 (45-73) % Lymph % (Auto) 22.3 (20-40) % [place] % (Auto) 6.5 (2-11) % Eos % (Auto) 3.9 (0-4) % Baso % (Auto) 0.9 (0-2) % Lymph # (Auto) 1.9 (1.2-4.9) X10*3/uL [place] # (Auto) 0.6 (0.1-1.2) X10*3/uL Eos # (Auto) 0.3 (0.0-0.4) X10*3/uL Baso # (Auto) 0.1 (0.0-0.2) X10*3/uL Abs Immat Gran (auto) 0.03 (0.00-0.03) X10*3/uL Absolute Neuts (auto) 5.6 (2.0-8.3) x10*3/uL Absolute Nucleated RBC 0.000 (0.0-0.012) X10*3/uL Nucleated RBC % (auto) 0.0 (0.0-0.2) /100WBC D-Dimer High Sensitivty NG/ML Sodium 140 (135-145) mmol/L Potassium 5.0 (3.3-5.1) mmol/L Chloride 107 (96-108) mmol/L Carbon Dioxide 24 (22-29) mmol/L Anion Gap 14 (12-20) BUN 43 H (9-16) mg/dL Creatinine 2.24 H (0.5-1.4) mg/dL Estim Creat Clear Calc 43.0 Estimated GFR 30 Random Glucose 258 H (60-115) mg/dL Calcium 9.0 (8.4-10.2) mg/dL Magnesium 1.8 (1.6-2.6) mg/dL Total Bilirubin 0.4 (0.0-1.0) mg/dL AST 25 (5-37) U/L ALT 21 (0-40) U/L Alkaline Phosphatase 71 (39-117) U/L Troponin I High Sens 15.2 (<3.5-35.0) ng/L Total Protein 5.7 L (6.5-8.0) g/dL Albumin 3.5 (3.5-5.0) g/dL COVID-19 (TERRANCE) (Negative) COVID-19 Clin Com Influenza Type A (YESIKA) (Negative) Influenza Type B (YESIKA) (Negative) Influenza A & B Note 09/09/22 09/09/22 09/09/22 Range/Units 23:04 23:04 23:04 WBC (4.8-10.8) X10*3/uL RBC (4.60-5.80) X10*6/uL Hgb (14.0-18.0) g/dl Hct (42.0-52.0) % MCV (80.0-98.0) fL MCH (27.0-33.0) pg MCHC (31.0-36.0) g/dl RDW (11.0-16.0) % Plt Count (160-400) X10*3/uL MPV (9.4-12.4) fL Immature Gran % (Auto) (0.0-0.4) % Neut % (Auto) (45-73) % Lymph % (Auto) (20-40) % [place] % (Auto) (2-11) % Eos % (Auto) (0-4) % Baso % (Auto) (0-2) % Lymph # (Auto) (1.2-4.9) X10*3/uL [place] # (Auto) (0.1-1.2) X10*3/uL Eos # (Auto) (0.0-0.4) X10*3/uL Baso # (Auto) (0.0-0.2) X10*3/uL Abs Immat Gran (auto) (0.00-0.03) X10*3/uL Absolute Neuts (auto) (2.0-8.3) x10*3/uL Absolute Nucleated RBC (0.0-0.012) X10*3/uL Nucleated RBC % (auto) (0.0-0.2) /100WBC D-Dimer High Sensitivty 338 NG/ML Sodium (135-145) mmol/L Potassium (3.3-5.1) mmol/L Chloride (96-108) mmol/L Carbon Dioxide (22-29) mmol/L Anion Gap (12-20) BUN (9-16) mg/dL Creatinine (0.5-1.4) mg/dL Estim Creat Clear Calc Estimated GFR Random Glucose (60-115) mg/dL Calcium (8.4-10.2) mg/dL Magnesium (1.6-2.6) mg/dL Total Bilirubin (0.0-1.0) mg/dL AST (5-37) U/L ALT (0-40) U/L Alkaline Phosphatase (39-117) U/L Troponin I High Sens (<3.5-35.0) ng/L Total Protein (6.5-8.0) g/dL Albumin (3.5-5.0) g/dL COVID-19 (TERRANCE) Negative (Negative) COVID-19 Clin Com See Note Influenza Type A (YESIKA) Negative (Negative) Influenza Type B (YESIKA) Negative (Negative) Influenza A & B Note See Note 09/10/22 Range/Units 01:01 WBC (4.8-10.8) X10*3/uL RBC (4.60-5.80) X10*6/uL Hgb (14.0-18.0) g/dl Hct (42.0-52.0) % MCV (80.0-98.0) fL MCH (27.0-33.0) pg MCHC (31.0-36.0) g/dl RDW (11.0-16.0) % Plt Count (160-400) X10*3/uL MPV (9.4-12.4) fL Immature Gran % (Auto) (0.0-0.4) % Neut % (Auto) (45-73) % Lymph % (Auto) (20-40) % [place] % (Auto) (2-11) % Eos % (Auto) (0-4) % Baso % (Auto) (0-2) % Lymph # (Auto) (1.2-4.9) X10*3/uL [place] # (Auto) (0.1-1.2) X10*3/uL Eos # (Auto) (0.0-0.4) X10*3/uL Baso # (Auto) (0.0-0.2) X10*3/uL Abs Immat Gran (auto) (0.00-0.03) X10*3/uL Absolute Neuts (auto) (2.0-8.3) x10*3/uL Absolute Nucleated RBC (0.0-0.012) X10*3/uL Nucleated RBC % (auto) (0.0-0.2) /100WBC D-Dimer High Sensitivty NG/ML Sodium (135-145) mmol/L Potassium (3.3-5.1) mmol/L Chloride (96-108) mmol/L Carbon Dioxide (22-29) mmol/L Anion Gap (12-20) BUN (9-16) mg/dL Creatinine (0.5-1.4) mg/dL Estim Creat Clear Calc Estimated GFR Random Glucose (60-115) mg/dL Calcium (8.4-10.2) mg/dL Magnesium (1.6-2.6) mg/dL Total Bilirubin (0.0-1.0) mg/dL AST (5-37) U/L ALT (0-40) U/L Alkaline Phosphatase (39-117) U/L Troponin I High Sens 14.2 (<3.5-35.0) ng/L Total Protein (6.5-8.0) g/dL Albumin (3.5-5.0) g/dL COVID-19 (TERRANCE) (Negative) COVID-19 Clin Com Influenza Type A (YESIKA) (Negative) Influenza Type B (YESIKA) (Negative) Influenza A & B Note Discharge Plan Discharge Clinical Impression: Chest pain, Anxiety Patient Disposition: Home, Self-Care Instructions: Chest Pain (ED), Anxiety (ED) Additional Instructions: Rest at home Continue your medications Medication for anxiety as prescribed 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 for chest pain Prescriptions: New lorazepam [Ativan] 1 mg tablet 1 mg PO BEDTIME PRN (Reason: anxiety) Qty: 14 0RF No Action sildenafil 25 mg tablet 25 mg PO DAILY PRN (Reason: Sexual Activity) fenofibrate 120 mg tablet 1 tab PO BEDTIME cholecalciferol (vitamin D3) 50 mcg (2,000 unit) Tablet 50 mcg PO DAILY losartan 50 mg Tablet 50 mg PO DAILY Qty: 30 0RF Protocol: Hold for SBP< HOLD for SBP < : 90 atorvastatin 80 mg Tablet 80 mg PO BEDTIME Qty: 30 0RF clopidogrel 75 mg Tablet 75 mg PO DAILY Qty: 30 0RF amlodipine 5 mg Tablet 5 mg PO DAILY Qty: 30 0RF Protocol: Hold for SBP< HOLD for SBP < : 90 aspirin 81 mg Tablet,Delayed Release (Dr/Ec) 81 mg PO DAILY Qty: 30 0RF insulin glargine [Lantus Solostar U-100 Insulin] 100 unit/mL (3 mL) insulin pen 30 unit subcut BEDTIME Qty: 15 0RF
[2022-09-09] MEDS: LORazepam 1 MG TABLET PO (22:54)
[2022-09-09 23:09] LABS: MANUAL DIFF FLAG NO
--- NOTE | 2022-09-09 23:10 | PC.NURSE ---
Pt aox3 with family at the bedside. Reports left sided chest pain, 2. NSR on monitor HR 78. Labs drawn and sent. Medicated PO as ordered with no complications. Pending xray and lab results. Pt aware of plan of care.
[2022-09-09 23:15] LABS: Basophils Absolute Auto 0.1 X10*3/uL (0.0-0.2); Basophils Percent Auto 0.9 % (0-2); Eosinophils Absolute Auto 0.3 X10*3/uL (0.0-0.4); Eosinophils Percent Auto 3.9 % (0-4); Hematocrit 35.7 % (42.0-52.0); Hemoglobin 11.8 g/dl (14.0-18.0); Imm Gran Abs Auto 0.03 X10*3/uL (0.00-0.03); Imm Gran Pct Auto 0.4 % (0.0-0.4); Lymphocytes Absolute Auto 1.9 X10*3/uL (1.2-4.9); Lymphocytes Percent Auto 22.3 % (20-40); Mean Corpuscular HGB Conc 33.1 g/dl (31.0-36.0); Mean Corpuscular Hemoglobin 27.6 pg (27.0-33.0); Mean Corpuscular Volume 83.4 fL (80.0-98.0); Mean Platelet Volume 8.4 fL (9.4-12.4); Monocytes Absolute Auto 0.6 X10*3/uL (0.1-1.2); Monocytes Percent Auto 6.5 % (2-11); Neutrophils Absolute Auto 5.6 x10*3/uL (2.0-8.3); Platelet Count 385 X10*3/uL (160-400); Red Blood Count 4.28 X10*6/uL (4.60-5.80); Red Cell Distribution Width 13.7 % (11.0-16.0); White Blood Count 8.5 X10*3/uL (4.8-10.8)
[2022-09-09 23:24] LABS: COVID-19 Test Negative (Negative); IDNOW Serial# 08D9AD1C; IDNOW Serial# 9DB6401D; Influenza A Negative (Negative); Influenza B2 Negative (Negative)
[2022-09-09 23:28] LABS: D Dimer High Sensitivity 338 NG/ML
[2022-09-09 23:40] LABS: Alanine Aminotransferase 21 U/L (0-40); Albumin Level 3.5 g/dL (3.5-5.0); Alkaline Phosphatase 71 U/L (39-117); Anion Gap 14 (12-20); Aspartate Amino Transferase 25 U/L (5-37); Bilirubin Total 0.4 mg/dL (0.0-1.0); Blood Urea Nitrogen 43 mg/dL (9-16); Carbon Dioxide 24 mmol/L (22-29); Chloride 107 mmol/L (96-108); Estimated Glomerular Filt Rate 30; Glucose Random 258 mg/dL (60-115); Magnesium 1.8 mg/dL (1.6-2.6); Sodium 140 mmol/L (135-145); Total Protein 5.7 g/dL (6.5-8.0)
[2022-09-09 23:42] LABS: Troponin-I High Sensitivity 15.2 ng/L (<3.5-35.0)
[2022-09-09 23:43] VITALS: BP 153/73; PULSE 75; RESP 15; O2SAT 94
[2022-09-10 01:31] LABS: Troponin-I High Sensitivity 14.2 ng/L (<3.5-35.0)
[2022-09-10 02:18] VITALS: BP 139/81; PULSE 81; RESP 15; TEMP 36.5; O2SAT 97
--- NOTE | 2022-09-10 02:25 | PC.NURSE ---
Discharge instructions reviewed with pt. Pt verbalizes understanding.
== END 2022-09-10 02:26 | disposition home or self-care (01) ==
PROVIDERS: Emergency Provider Internal Medicine; PCP Internal Medicine
DX: R07.9 Chest pain, unspecified (principal); F41.9 Anxiety disorder, unspecified; R06.02 Shortness of breath; Z20.822 Contact with and (suspected) exposure to COVID-19; E11.22 Type 2 diabetes mellitus with diabetic chronic kidney disease; I12.9 Hypertensive chronic kidney disease with stage 1 through stage 4 chronic kidney disease, or unspecified chronic kidney disease; N18.9 Chronic kidney disease, unspecified
CPT/HCPCS: 36415; 71045; 80053; 83735; 84484; 85025; 85379; 87502; 87635; 93005; 99283; 99284

== ENCOUNTER 2023-06-19 12:01 | Inpatient (IN) | payer BC, SELFPAY ==
--- NOTE | ~2023-06-19 | XR_ITS ---
EXAMINATION: XR CHEST CLINICAL INFORMATION: Productive cough and SOB. Covid exposure. COMPARISON: None available. TECHNIQUE: 2 views of the chest were obtained. FINDINGS: Lungs are well-expanded and clear. Heart size and pulmonary vascularity is normal. There is moderate spondylosis dorsal spine. No aggressive lytic or sclerotic process seen. XR/XR chest 2V IMPRESSION: Mild cardiomegaly. No acute process seen
[2023-06-19 12:16] VITALS: BP 184/75; PULSE 70; RESP 17; TEMP 37.1; O2SAT 93; BMI 45.4
--- NOTE | 2023-06-19 12:16 | ED_ITS ---
HPI - General Adult General Chief complaint: Upper Respiratory Symptoms Stated complaint: Flu Symptoms Time Seen by Provider: 06/19/23 16:01 Source: patient Mode of arrival: ambulatory Limitations: no limitations History of Present Illness HPI narrative: Patient is a 63-year-old male who presents emergency department for evaluation of a productive cough with green phlegm, post-tussive nausea with small amount of ?vomiting? clear sputum, nasal and chest congestion, shortness of breath. Symptom onset last night. Shortness of breath is progressively worsening. With minimal movement such as sitting up in the bed or deep respirations he feels significantly fatigued and has to pause to catch his breath. His tested positive for COVID-19 6 days ago. He reports a low-grade temperature at home which responded to Tylenol. He denies any diagnosed respiratory history, chest pain, abdominal pain, diarrhea, constipation. Related Data Home Medications Medication Instructions Recorded Confirmed cholecalciferol (vitamin D3) 50 50 mcg PO DAILY 04/17/22 06/19/23 mcg (2,000 unit) tablet fenofibrate 120 mg tablet 1 tab PO BEDTIME 04/17/22 06/19/23 sildenafil 25 mg tablet 25 mg PO DAILY PRN Sexual Activity 04/17/22 06/19/23 cetirizine 10 mg tablet 10 mg PO BEDTIME 06/19/23 06/19/23 folic acid 1 mg tablet 1 mg PO DAILY 06/19/23 06/19/23 insulin glargine 100 unit/mL (3 26 unit subcut BEDTIME 06/19/23 06/19/23 mL) subcutaneous pen (Lantus Solostar U-100 Insulin) insulin lispro 100 unit/mL 8 - 12 unit subcut TIDAC 06/19/23 06/19/23 subcutaneous pen (Humalog KwikPen (U-100) Insulin) losartan 50 mg tablet 50 mg PO BEDTIME 06/19/23 06/19/23 metoprolol tartrate 25 mg tablet 25 mg PO BID 06/19/23 06/19/23 prednisolone acetate 1 % eye 1 drp ophthalmic (eye) TID 06/19/23 06/19/23 drops,suspension semaglutide 0.25 mg or 0.5 mg (2 0.25 mg subcut VELÁSQUEZ@0900 06/19/23 06/19/23 mg/3 mL) subcutaneous pen injector (Ozempic) torsemide 10 mg tablet 10 mg PO DAILY 06/19/23 06/19/23 Previous Rx's Medication Instructions Recorded amlodipine 5 mg tablet 5 mg PO DAILY #30 tabs 04/20/22 aspirin 81 mg tablet,delayed 81 mg PO DAILY #30 tabs 04/20/22 release atorvastatin 80 mg tablet 80 mg PO BEDTIME #30 tabs 04/20/22 clopidogrel 75 mg tablet 75 mg PO DAILY #30 tabs 04/20/22 lorazepam 1 mg tablet (Ativan) 1 mg PO BEDTIME PRN anxiety #14 09/10/22 tabs Allergies Allergy/AdvReac Type Severity Reaction Status Date / Time No Known Allergies Allergy Verified 06/19/23 12:16 Review of Systems 2 Review of Systems: Yes all other systems are reviewed and are negative [facility] Past Medical History Attestation statement: The following information was validated with the patient. Source: old records reviewed Medical History Chronic kidney disease Hypertension Insulin dependent diabetes Hyperlipidemia Social History Social History Alcohol intake: current Alcohol intake frequency: holidays/special occasions only Comment: pt refusing bed alarm, encouraged to call for help OOB Patient Tobacco Use Status: Never used Tobacco Substance Use Type: Marijuana Advance Directives: Yes Advance Directives on File: Yes Advance Directives Date on File: 04/21/22 Nutrition Risks: No Nutritional Risk service: No Current occupational status: employed Physical Exam ED Vital Signs: Vital Signs - 24 hr 06/19/23 12:16 06/19/23 12:53 06/19/23 15:25 Temperature 98.8 F 98.3 F Pulse Rate 70 65 79 Respiratory Rate 17 24 H Blood Pressure 184/75 H 162/84 H Pulse Oximetry 93 95 93 Oxygen Delivery Method Room Air Room Air Room Air 06/19/23 16:27 06/19/23 17:10 Temperature 98.6 F Pulse Rate 88 89 Respiratory Rate 18 18 Blood Pressure 160/88 H Pulse Oximetry 88 L Oxygen Delivery Method Room Air BMI result Body Mass Index 45.4 Appearance: Alert.?Oriented to person, place and time. No acute distress.?Normal affect. Eyes: Pupils equal, round and reactive to light.? ENT: Pharynx normal.?? Neck: Normal inspection.? Neck supple.?? CVS: Heart sounds normal. Normal heart rate and rhythm.? Pulses normal.?? Respiratory: ? Lung sounds with faint expiratory wheezing, diminished at the bases. Dyspneic with minimal exertion. Hypoxia on room ar Abdomen: Soft and non-tender. Normoactive bowel sounds. ? Skin: Skin warm and dry.? Normal skin color.? Extremities: No lower extremity edema.? No calf ttp? Neuro: Moves all extremities spontaneously. Sensation intact bilaterally. Course Course Course Narrative: RME:?63 yo male w/ pmhx TIA, CKD, HTN, DM, HDL here w/ productive cough, posttussive vomiting, congestion, SOB onset last night. Temp at home 100F. Took tylenol at home, last does 5 hrs ago. denies chills, N/V, diarrhea, chest pain. no COPD/ asthma. with him is COVID +. on ozempic x3 wks. Plan for serology and cxr Full HPI, ROS and PE to be performed by the primary ED provider. Reevaluation(s) Reevaluation #1: No rales upon auscultation, CXR without pulmonary congestion or pleural effusion, mild cardiomegaly is noted, BNP is elevated at 444, no priors available for comparison, suspect hypoxia to be less likely due to CHF exacerbation but rather COVID-19. Renal function is increased when compared to prior and August of 2022, at this time does not meet criteria for superimposed YENNY on CKD. Reports some improvement in shortness of breath with albuterol inhaler. Plan for admission to medicine service due to acute hypoxic respiratory failure, accepted by hospitalist Dr. Burk Medications Administered Generic Name Dose Route Start Last Admin Trade Name Freq PRN Reason Stop Dose Admin Dexamethasone Sodium Phosphate 6 mg 06/19/23 22:05 06/19/23 23:29 Dexamethasone Sod Phosphate 4 Mg/Ml Vial IVPUSH 6 mg BEDTIME DELON Administration Enoxaparin Sodium 40 mg 06/19/23 22:15 06/19/23 23:29 Enoxaparin Sodium 40 Mg/0.4 Ml Syringe SUBCUT 40 mg Q24H DELON Administration Discontinued Medications Generic Name Dose Route Start Last Admin Trade Name Freq PRN Reason Stop Dose Admin Albuterol Sulfate 4 puff 06/19/23 16:55 12/26/23 17:10 Albuterol Sulfate 90 Mcg 8 Gm Inhaler INHALE 06/19/23 16:56 4 puff ONCE ONE Administration Ondansetron HCl 4 mg 06/19/23 16:27 06/19/23 16:49 Ondansetron Hcl 4 Mg/2 Ml Vial IVPUSH 06/19/23 16:28 4 mg ONCE ONE Administration Medical Decision Making Medical Decision Making MDM Narrative: Patient is a 63-year-old male with past medical history TIA, CKD, hypertension, insulin-dependent diabetes, hyperlipidemia presenting to emergency department for evaluation of upper respiratory symptoms with shortness breath. Recent ill contact positive for COVID-19. Today his testing is positive for COVID-19. At the time of my assumption of care, he is noted to be hypoxic on room air with O2 saturation down to 88% with minimal exertion i.e. sitting forward in the bed for deep respirations. His O2 normalizes on 2 L via nasal cannula to 93%. I suspect the acute hypoxic respiratory failure secondary to COVID-19 infection. He will require admission for hypoxia, Will obtain CBC to evaluate for leukocytosis/ anemia, CMP and lipase to evaluate for abnormal electrolytes /abnormal renal function function, Chest x-ray to evaluate for consolidation/ infiltrate/ mass/ pulmonary congestion. Differential Diagnosis Differential Diagnoses: The differential diagnosis associated with the presentation includes (As noted above) Admission/Observation Consideration of admission/observation: Escalation of care including admission/observation considered (As noted above) Consult Healthcare Provider Management of the patient was discussed with: Hospitalist (See course narrative) Lab Data MDM Lab Attestation statement: I reviewed the patient's lab results. (See course narrative) 06/19/23 17:43 06/19/23 17:43 Labs: Lab Results 06/19/23 06/19/23 06/19/23 Range/Units 12:22 17:43 20:35 WBC 10.4 (4.8-10.8) X10*3/uL RBC 4.06 L (4.60-5.80) X10*6/uL Hgb 11.0 L (14.0-18.0) g/dl Hct 34.7 L (42.0-52.0) % MCV 85.5 (80.0-98.0) fL MCH 27.1 (27.0-33.0) pg MCHC 31.7 (31.0-36.0) g/dl RDW 14.2 (11.0-16.0) % Plt Count 355 (160-400) X10*3/uL MPV 9.3 L (9.4-12.4) fL Immature Gran % (Auto) 0.6 H (0.0-0.4) % Neut % (Auto) 81.3 H (45-73) % Lymph % (Auto) 10.0 L (20-40) % [place] % (Auto) 6.3 (2-11) % Eos % (Auto) 1.2 (0-4) % Baso % (Auto) 0.6 (0-2) % Lymph # (Auto) 1.0 L (1.2-4.9) X10*3/uL [place] # (Auto) 0.7 (0.1-1.2) X10*3/uL Eos # (Auto) 0.1 (0.0-0.4) X10*3/uL Baso # (Auto) 0.1 (0.0-0.2) X10*3/uL Abs Immat Gran (auto) 0.06 H (0.00-0.03) X10*3/uL Absolute Neuts (auto) 8.5 H (2.0-8.3) x10*3/uL Absolute Nucleated RBC 0.000 (0.0-0.012) X10*3/uL Nucleated RBC % (auto) 0.0 (0.0-0.2) /100WBC Smear Tech's Comments VERIFIED PT 12.4 (11.1-13.3) SEC INR 1.0 (0.9-1.1) Sodium 144 (135-145) mmol/L Potassium 4.7 (3.3-5.1) mmol/L Chloride 108 (96-108) mmol/L Carbon Dioxide 29 (22-29) mmol/L Anion Gap 12 (12-20) BUN 42 H (9-16) mg/dL Creatinine 2.78 H (0.5-1.4) mg/dL Estim Creat Clear Calc 35.0 Estimated GFR 23 POC Glucose 142 H (60-115) mg/dL Random Glucose 141 H (60-115) mg/dL Calcium 9.2 (8.4-10.2) mg/dL Total Bilirubin 0.4 (0.0-1.0) mg/dL AST 31 (5-37) U/L ALT 15 (0-40) U/L Alkaline Phosphatase 56 (39-117) U/L B-Natriuretic Peptide 444 H (<100) pg/mL Total Protein 6.5 (6.5-8.0) g/dL Albumin 3.3 L (3.5-5.0) g/dL Lipase 15 (8-78) U/L Influenza Type A (PCR) NEGATIVE (Negative) Influenza Type B (PCR) NEGATIVE (Negative) RSV RNA Qual (PCR) NEGATIVE (Negative) SARS-CoV-2 RNA (RT-PCR) POSITIVE A (Negative) Independent Interpretation I performed an independent interpretation of an: Plain X-Ray (I personally interpreted chest x-ray and agree radiologist impression.) Radiology Impression Discussion of test interpretation with radiology: I have reviewed the radiologist's reading. Radiologist Impression: XR/XR chest 2V IMPRESSION: Mild cardiomegaly. No acute process seen Independent Historian Clinical information obtained from an independent historian. History obtained from or confirmed by: Spouse (Present at bedside who confirms history) External Record Review External record reviewed: Outpatient record Discharge Plan Discharge Clinical Impression: Acute hypoxemic respiratory failure due to COVID-19 Patient Disposition: Admitted As Inpatient
[2023-06-19 12:53] VITALS: PULSE 65; O2SAT 95
--- NOTE | 2023-06-19 12:54 | PC.NURSE ---
Patient reassessed by engineering technical analyst per request. Patient's oxygen saturations on RA remain at 95%. Pt reports he has trouble catching his breath after a coughing fit. Pt able to recatch his breath after coughing. Reports HOWARD. Assessment similar to presentation to ED.
[2023-06-19 13:15] LABS: Influenza A PCR NEGATIVE (Negative); Influenza B PCR NEGATIVE (Negative); Resp Syncy Virus RNA Qual PCR NEGATIVE (Negative); SARS COV2 PCR INHOUSE POSITIVE (Negative)
[2023-06-19 15:25] VITALS: BP 162/84; PULSE 79; RESP 24; TEMP 36.8; O2SAT 93
[2023-06-19 16:27] VITALS: BP 160/88; PULSE 88; RESP 18; TEMP 37; O2SAT 88
[2023-06-19] MEDS: ondansetron HCL 4 MG/2 ML VIAL IVPUSH (16:49)
--- NOTE | 2023-06-19 16:56 | PC.NURSE ---
Unable to obtain labs x 2 attemps, IV access obtained.
[2023-06-19 17:10] VITALS: PULSE 89; RESP 18; O2SAT 97
[2023-06-19] MEDS: Albuterol Sulfate 90 MCG 8 GM INHALER 4 PUFF INHALE (17:10)
[2023-06-19 18:10] LABS: Prothrombin Time 12.4 SEC (11.1-13.3)
[2023-06-19 18:12] LABS: Basophils Absolute Auto 0.1 X10*3/uL (0.0-0.2); Basophils Percent Auto 0.6 % (0-2); Eosinophils Absolute Auto 0.1 X10*3/uL (0.0-0.4); Eosinophils Percent Auto 1.2 % (0-4); Hematocrit 34.7 % (42.0-52.0); Imm Gran Abs Auto 0.06 X10*3/uL (0.00-0.03); Imm Gran Pct Auto 0.6 % (0.0-0.4); MANUAL DIFF FLAG SCAN; Mean Corpuscular HGB Conc 31.7 g/dl (31.0-36.0); Mean Corpuscular Hemoglobin 27.1 pg (27.0-33.0); Mean Corpuscular Volume 85.5 fL (80.0-98.0); Mean Platelet Volume 9.3 fL (9.4-12.4); Monocytes Absolute Auto 0.7 X10*3/uL (0.1-1.2); Monocytes Percent Auto 6.3 % (2-11); Neutrophils Absolute Auto 8.5 x10*3/uL (2.0-8.3); Neutrophils Percent Auto 81.3 % (45-73); PLT CLUMP 1; Red Blood Count 4.06 X10*6/uL (4.60-5.80); Red Cell Distribution Width 14.2 % (11.0-16.0); SCAN SMEAR FLAG 1; White Blood Count 10.4 X10*3/uL (4.8-10.8)
[2023-06-19 18:17] LABS: Alanine Aminotransferase 15 U/L (0-40); Albumin Level 3.3 g/dL (3.5-5.0); Alkaline Phosphatase 56 U/L (39-117); Anion Gap 12 (12-20); Aspartate Amino Transferase 31 U/L (5-37); Bilirubin Total 0.4 mg/dL (0.0-1.0); Blood Urea Nitrogen 42 mg/dL (9-16); Calcium 9.2 mg/dL (8.4-10.2); Carbon Dioxide 29 mmol/L (22-29); Chloride 108 mmol/L (96-108); Estimated Glomerular Filt Rate 23; Glucose Random 141 mg/dL (60-115); Lipase 15 U/L (8-78); Potassium 4.7 mmol/L (3.3-5.1); Sodium 144 mmol/L (135-145); Total Protein 6.5 g/dL (6.5-8.0)
[2023-06-19 18:23] LABS: B Type Natriuretic Peptide 444 pg/mL (<100)
[2023-06-19 18:35] LABS: Platelet Count 355 X10*3/uL (160-400)
[2023-06-19 18:36] LABS: SLIDE REVIEW VERIFIED
[2023-06-19 20:40] LABS: Glucose, Whole Blood 142 mg/dL (60-115)
--- NOTE | 2023-06-19 20:49 | PHA.MEDREC ---
Pharmacy Consult ? Medication Reconciliation Pharmacy has completed the medication reconciliation.Med rec complete, spoke with patients and also compared pharmacy claim history.
--- NOTE | 2023-06-19 22:05 | PM.IMHP ---
History of Present Illness Date of Service: 06/19/23 Attending physician on admission: Pascual Burk Chief Complaint: Cough, congestion and shortness of breath since yesterday Patient is a 63 year old morbidly obese white male with history of CAD s/p SC, T2DM and hypertension who presents to the ED complaining of worsening cough, chest congestion and shortness of breath since yesterday. This is in the setting of contact with individual () who tested positive for COVID-19 5 days ago. He reports associated subjective fevers and chills. HE enies any associated chest pain. He did a home test for COVID-19 that was negative. Initial evaluation in the emergency room was significant for finding of COVID-19 PCR positive test and hypoxemia with oxygen saturation dropping to 88% on room air. Review of Systems Review of Systems: Yes all other systems are reviewed and are negative [facility] Medical History Chronic kidney disease Hypertension Insulin dependent diabetes Hyperlipidemia Social History Alcohol intake: current Alcohol intake frequency: holidays/special occasions only Comment: pt refusing bed alarm, encouraged to call for help OOB Patient Tobacco Use Status: Never used Tobacco Substance Use Type: Marijuana Advance Directives: Yes Advance Directives on File: Yes Advance Directives Date on File: 04/21/22 Nutrition Risks: No Nutritional Risk service: No Current occupational status: employed Meds Allergies Allergy/AdvReac Type Severity Reaction Status Date / Time No Known Allergies Allergy Verified 06/19/23 12:16 Home Medications Medication Instructions Recorded Confirmed Last Taken Type cholecalciferol (vitamin D3) 50 50 mcg PO DAILY 04/17/22 06/19/23 06/19/23 History mcg (2,000 unit) tablet fenofibrate 120 mg tablet 1 tab PO BEDTIME 04/17/22 06/19/23 06/18/23 History sildenafil 25 mg tablet 25 mg PO DAILY PRN Sexual Activity 04/17/22 06/19/23 Unknown History cetirizine 10 mg tablet 10 mg PO BEDTIME 06/19/23 06/19/23 Unknown History folic acid 1 mg tablet 1 mg PO DAILY 06/19/23 06/19/23 06/19/23 History insulin glargine 100 unit/mL (3 26 unit subcut BEDTIME 06/19/23 06/19/23 Unknown History mL) subcutaneous pen (Lantus Solostar U-100 Insulin) insulin lispro 100 unit/mL 8 - 12 unit subcut TIDAC 06/19/23 06/19/23 Unknown History subcutaneous pen (Humalog KwikPen (U-100) Insulin) losartan 50 mg tablet 50 mg PO BEDTIME 06/19/23 06/19/23 06/18/23 History metoprolol tartrate 25 mg tablet 25 mg PO BID 06/19/23 06/19/23 06/19/23 History prednisolone acetate 1 % eye 1 drp ophthalmic (eye) TID 06/19/23 06/19/23 Unknown History drops,suspension semaglutide 0.25 mg or 0.5 mg (2 0.25 mg subcut VELÁSQUEZ@0900 06/19/23 06/19/23 Unknown History mg/3 mL) subcutaneous pen injector (Ozempic) torsemide 10 mg tablet 10 mg PO DAILY 06/19/23 06/19/23 06/19/23 History Physical Exam Vital Signs and Narrative: Vital Signs: Last Vital Signs Temp 98.6 F 06/19/23 16:27 Pulse 89 06/19/23 17:10 Resp 18 06/19/23 17:10 BP 160/88 H 06/19/23 16:27 Pulse Ox 88 L 06/19/23 16:27 O2 Del Method Room Air 06/19/23 16:27 BMI result Body Mass Index 45.4 General: Morbidly obese WM in bed. Awake and alert. In no apparent distress Eyes: No pallor or jaundice. PERRLA, EOMI HENT: Moist oral mucus membranes. No oropharyngeal lesions. Neck: Supple. No cervical adenopathy. No JVD Cardiovascular: Regular rate and rhythm. Normal heart sounds. No murmurs, rubs or gallops. No JVD. No peripheral edema. Respiratory: Normal respiratory effort with no accessory muscle use. CTAB. Gastrointestinal: Abdomen is obese, flabby, soft, non-tender, non-distended. NABS. No hepatosplenomegaly Extremities: No edema. No calf tenderness. Good peripheral pulses Skin: Warm/Dry. No rashes. No mottling. Capillary refill is < 2 seconds Neurological: AAOx4. Intact speech & cognition. Normal gait & balance. CN II - XII grossly intact but not individually tested. No motor or sensory deficits Hematologic: No bleeding. No ecchymosis. No swollen or tender lymph nodes. Psychiatric: Cooperative. Appropriate mood and affect. Results Labs 06/20/23 05:42 06/20/23 05:42 Labs: Laboratory Results - last 24 hr 06/19/23 06/19/23 06/19/23 12:22 17:43 20:35 MCV 85.5 MCH 27.1 MCHC 31.7 RDW 14.2 Plt Count 355 MPV 9.3 L Immature Gran % (Auto) 0.6 H Neut % (Auto) 81.3 H Lymph % (Auto) 10.0 L [place] % (Auto) 6.3 Eos % (Auto) 1.2 Baso % (Auto) 0.6 Lymph # (Auto) 1.0 L [place] # (Auto) 0.7 Eos # (Auto) 0.1 Baso # (Auto) 0.1 Abs Immat Gran (auto) 0.06 H Absolute Neuts (auto) 8.5 H Absolute Nucleated RBC 0.000 Nucleated RBC % (auto) 0.0 Smear Tech's Comments VERIFIED PT 12.4 INR 1.0 Anion Gap 12 Estim Creat Clear Calc 35.0 Estimated GFR 23 POC Glucose 142 H Random Glucose 141 H Calcium 9.2 Total Bilirubin 0.4 AST 31 ALT 15 Alkaline Phosphatase 56 B-Natriuretic Peptide 444 H Total Protein 6.5 Albumin 3.3 L Lipase 15 Influenza Type A (PCR) NEGATIVE Influenza Type B (PCR) NEGATIVE RSV RNA Qual (PCR) NEGATIVE SARS-CoV-2 RNA (RT-PCR) POSITIVE A COVID-19 PCR => Positive Imaging Radiologist's Impressions: Impressions Chest X-Ray 06/19/23 12:40 IMPRESSION: Mild cardiomegaly. No acute process seen Assessment and Plan (1) Acute hypoxemic respiratory failure due to COVID-19: Status: Acute (2) Morbid obesity with BMI of 45.0-49.9, adult: Status: Acute (3) Chronic renal failure, stage 4 (severe): Status: Acute Plan 63 year old morbidly obese white male with history of CAD s/p SC, CKD, T2DM and hypertension here with 1. Acute hypoxic respiratory failure - secondary to COVID-19 infection - SpO2 as low as 88 % on room air - place on supplemental Oxygen - start on Decadron 6 mg daily - consider short course of Remdesivir if clinical condition does not improve 2. Type 2 Diabetes Mellitus - resume Insulin Lantus 26 units - ass sliding scale insulin 3. Stage 4 CKD - stable - monitor 4. Hypertension - BP control is sub-optimal - resume Amlodipine, Metoprolol and Losartan 5. Morbid obesity - encourage weight loss Total time managing care of this patient today: 75 minutes. Quality Stroke Does the patient have a stroke diagnosis?: No VTE Prior VTE?: No VTE Risk Level:: Medical - moderate - high VTE Device Contraindication: N/A - Device Ordered VTE Drug Contraindication: N/A - Med Ordered
[2023-06-19] MEDS: dexAMETHasone sod phosphate 4 MG/ML VIAL 6 MG IVPUSH (23:29)
[2023-06-19] MEDS: Enoxaparin Sodium 40 MG/0.4 ML SYRINGE SUBCUT (23:29)
[2023-06-20] VITALS (9 sets, daily range): BP systolic 137–182; BP diastolic 67–85; PULSE 68–91; RESP 18–22; TEMP 36.4–37.2; O2SAT 93–100
[2023-06-20 01:52] LABS: Glucose, Whole Blood 172 mg/dL (60-115)
[2023-06-20] MEDS: LORazepam 1 MG TABLET PO ×2 (04:53→21:33)
[2023-06-20 05:52] LABS: MANUAL DIFF FLAG NO
[2023-06-20 05:55] LABS: Basophils Absolute Auto 0.1 X10*3/uL (0.0-0.2); Basophils Percent Auto 0.6 % (0-2); Hematocrit 31.8 % (42.0-52.0); Hemoglobin 9.8 g/dl (14.0-18.0); Imm Gran Abs Auto 0.18 X10*3/uL (0.00-0.03); Lymphocytes Absolute Auto 0.5 X10*3/uL (1.2-4.9); Lymphocytes Percent Auto 6.1 % (20-40); Mean Corpuscular HGB Conc 30.8 g/dl (31.0-36.0); Mean Corpuscular Hemoglobin 27.3 pg (27.0-33.0); Mean Corpuscular Volume 88.6 fL (80.0-98.0); Mean Platelet Volume 8.8 fL (9.4-12.4); Monocytes Absolute Auto 0.2 X10*3/uL (0.1-1.2); Monocytes Percent Auto 1.8 % (2-11); Neutrophils Percent Auto 89.5 % (45-73); Platelet Count 303 X10*3/uL (160-400); Red Blood Count 3.59 X10*6/uL (4.60-5.80); Red Cell Distribution Width 13.7 % (11.0-16.0); White Blood Count 8.9 X10*3/uL (4.8-10.8)
[2023-06-20 06:18] LABS: Anion Gap 16 (12-20); Blood Urea Nitrogen 48 mg/dL (9-16); Calcium 8.5 mg/dL (8.4-10.2); Carbon Dioxide 22 mmol/L (22-29); Chloride 107 mmol/L (96-108); Creatinine Clr Calc Pharmacy 33.5; Estimated Glomerular Filt Rate 22; Glucose Random 217 mg/dL (60-115); Magnesium 1.8 mg/dL (1.6-2.6); Potassium 5.3 mmol/L (3.3-5.1); Sodium 140 mmol/L (135-145)
[2023-06-20 06:32] LABS: Thyroid Stimulating Hormone 1.18 uIU/mL (0.32-4.0)
[2023-06-20 07:36] LABS: Glucose, Whole Blood 196 mg/dL (60-115)
[2023-06-20] MEDS: Insulin Lispro 100 UNIT/ML 3 ML VIAL SUBCUT ×4 (09:00→21:34)
[2023-06-20] MEDS: 0.9 % Sodium Chloride Flush 3 ML SYRINGE IVFLUSH ×2 (09:01→21:38)
[2023-06-20] MEDS: Cholecalciferol (Vitamin D3) 25 MCG TABLET 50 MCG PO (09:01)
[2023-06-20] MEDS: Aspirin Enteric Coated 81 MG TABLET.DR PO (09:02)
[2023-06-20] MEDS: Folic Acid 1 MG TABLET PO (09:02)
[2023-06-20] MEDS: amLODIPine Besylate 5 MG TABLET PO (09:03)
[2023-06-20] MEDS: Clopidogrel Bisulfate 75 MG TABLET PO (09:03)
[2023-06-20] MEDS: Torsemide 20 MG TABLET 10 MG PO (09:03)
[2023-06-20] MEDS: Metoprolol Tartrate 25 MG TABLET PO ×2 (09:03→21:33)
--- NOTE | 2023-06-20 11:15 | MHC.CM.PN ---
Pt lives with spouse, Jackelin Sibley, who is also his HCP, he was not able to confirm his PCP, we have it listed as Alli Kelly. Pt said that he does not have home health services, he has a walker and wheelchair at home. He said he can arrange transportation home upon DC. CM to follow and assist with DC plan.
[2023-06-20 11:32] LABS: Glucose, Whole Blood 207 mg/dL (60-115)
--- NOTE | 2023-06-20 13:28 | MHC.CLN ---
NUTRITION ADDED 2 GRAM SODIUM TO DIET ORDER DUE TO DX CKD STAGE 4 AND TAKES TORSEMIDE. DIET=DIABETIC 2000 KCAL, 2 GRAM SODIUM.
--- NOTE | 2023-06-20 14:47 | HO.PM.IMPN ---
Subjective Subjective Date of Service: 06/20/23 Interval History: resting comfortably. No acute issues. Breathing stable Review of Systems Denies chest pain Denies shortness of breath Denies nausea vomiting diarrhea Denies fever chills Physical Exam Vital Signs: Vital Signs: Last Vital Signs Temp 97.5 F 06/20/23 11:16 Pulse 80 06/20/23 11:16 Resp 22 H 06/20/23 11:16 BP 167/78 H 06/20/23 11:16 Pulse Ox 97 06/20/23 11:16 O2 Del Method Nasal Cannula 06/20/23 11:16 O2 Flow Rate 2 06/20/23 11:16 BMI result Body Mass Index 45.4 Const: Other: no acute issues Resp: Other: diminished at bases with scattered expiratory wheezes Cardio: Other: no S4; positive S1-S2; no S3 murmurs rubs or gallops GI: Other: soft nontender nondistended normoactive bowel sounds Extrem: Other: no edema bilaterally Objective Data Active Medications Acetaminophen (Acetaminophen 325 Mg Tablet) 650 mg PO Q6H PRN PRN Reason: Pain, Mild (Pain Scale 1-3) Amlodipine Besylate (Amlodipine Besylate 5 Mg Tablet) 5 mg PO DAILY [facility]; Protocol Last Admin: 06/20/23 09:03 Dose: 5 mg Documented By: RUFINO Aspirin (Aspirin Enteric Coated 81 Mg Tablet.) 81 mg PO DAILY [facility] Last Admin: 06/20/23 09:02 Dose: 81 mg Documented By: RUFINO Atorvastatin Calcium (Atorvastatin Calcium 80 Mg Tablet) 80 mg PO BEDTIME [facility] Clopidogrel Bisulfate (Clopidogrel Bisulfate 75 Mg Tablet) 75 mg PO DAILY [facility] Last Admin: 06/20/23 09:03 Dose: 75 mg Documented By: RUFINO Dexamethasone Sodium Phosphate (Dexamethasone Sod Phosphate 4 Mg/Ml Vial) 6 mg IVPUSH BEDTIME [facility] Last Admin: 06/19/23 23:29 Dose: 6 mg Documented By: OLAMIDE Dextrose (Dextrose 50 % 25 Gm/50 Ml Syringe) 25 gm IVPUSH Q15M PRN; Protocol PRN Reason: per Hypoglycemia Standing Ord. Enoxaparin Sodium (Enoxaparin Sodium 40 Mg/0.4 Ml Syringe) 40 mg SUBCUT Q24H [facility] Last Admin: 06/19/23 23:29 Dose: 40 mg Documented By: OLAMIDE Fenofibrate (Fenofibrate,Micronized 134 Mg Capsule) 134 mg PO BEDTIME [facility] Folic Acid (Folic Acid 1 Mg Tablet) 1 mg PO DAILY [facility] Last Admin: 06/20/23 09:02 Dose: 1 mg Documented By: RUFINO Glucose (Glucose Gel 15 Gm Gel..Gram.) 15 gm PO Q15M PRN; Protocol PRN Reason: per Hypoglycemia Standing Ord. Insulin Glargine (Insulin Glargine,Hum.Rec.Anlog 100 Unit/Ml 10 Ml Vial) 26 unit SUBCUT BEDTIME [facility] Insulin Human Lispro (Insulin Lispro 100 Unit/Ml 3 Ml Vial) 0 unit SUBCUT QIDACHS [facility]; Protocol Last Admin: 06/20/23 12:44 Dose: 4 unit Documented By: RAEANN Loratadine (Loratadine 10 Mg Tablet) 10 mg PO BEDTIME [facility] Lorazepam (Lorazepam 1 Mg Tablet) 1 mg PO BEDTIME PRN PRN Reason: anxiety Losartan Potassium (Losartan Potassium 50 Mg Tablet) 50 mg PO BEDTIME [facility]; Protocol Melatonin (Melatonin 3 Mg Tablet) 6 mg PO BEDTIME PRN PRN Reason: Insomnia Metoprolol Tartrate (Metoprolol Tartrate 25 Mg Tablet) 25 mg PO BID [facility]; Protocol Last Admin: 06/20/23 09:03 Dose: 25 mg Documented By: RUFINO Morphine Sulfate (Morphine Sulfate 4 Mg/Ml Cartridge) 2 mg IVPUSH Q4H PRN; Protocol PRN Reason: Pain, Severe (Pain Scale 7-10) Ondansetron HCl (Ondansetron Hcl 4 Mg/2 Ml Vial) 4 mg IVPUSH Q8H PRN PRN Reason: Nausea and Vomiting Senna (Sennosides 8.6 Mg Tablet) 17.2 mg PO BEDTIME PRN PRN Reason: Constipation Sodium Chloride (0.9 % Sodium Chloride Flush 3 Ml Syringe) [facility] Last Admin: 06/20/23 09:01 Dose: 3 ml Documented By: RUFINO Torsemide (Torsemide 20 Mg Tablet) 10 mg PO DAILY [facility]; Protocol Last Admin: 06/20/23 09:03 Dose: 10 mg Documented By: RUFINO Vitamin D (Cholecalciferol (Vitamin D3) 25 Mcg Tablet) 50 mcg PO DAILY [facility] Last Admin: 12/27/23 09:01 Dose: 50 mcg Documented By: URFINO Labs 06/20/23 05:42 06/20/23 05:42 Labs: Laboratory Results - last 24 hr 06/19/23 06/19/23 06/20/23 17:43 20:35 01:42 MCV 85.5 MCH 27.1 MCHC 31.7 RDW 14.2 Plt Count 355 MPV 9.3 L Immature Gran % (Auto) 0.6 H Neut % (Auto) 81.3 H Lymph % (Auto) 10.0 L [place] % (Auto) 6.3 Eos % (Auto) 1.2 Baso % (Auto) 0.6 Lymph # (Auto) 1.0 L [place] # (Auto) 0.7 Eos # (Auto) 0.1 Baso # (Auto) 0.1 Abs Immat Gran (auto) 0.06 H Absolute Neuts (auto) 8.5 H Absolute Nucleated RBC 0.000 Nucleated RBC % (auto) 0.0 Smear Tech's Comments VERIFIED PT 12.4 INR 1.0 Anion Gap 12 Estim Creat Clear Calc 35.0 Estimated GFR 23 POC Glucose 142 H 172 H Random Glucose 141 H Calcium 9.2 Magnesium Total Bilirubin 0.4 AST 31 ALT 15 Alkaline Phosphatase 56 B-Natriuretic Peptide 444 H Total Protein 6.5 Albumin 3.3 L Lipase 15 TSH 06/20/23 06/20/23 06/20/23 05:42 07:31 11:21 MCV 88.6 MCH 27.3 MCHC 30.8 L RDW 13.7 Plt Count 303 MPV 8.8 L Immature Gran % (Auto) 2.0 H Neut % (Auto) 89.5 H Lymph % (Auto) 6.1 L [place] % (Auto) 1.8 L Eos % (Auto) 0.0 Baso % (Auto) 0.6 Lymph # (Auto) 0.5 L [place] # (Auto) 0.2 Eos # (Auto) 0.0 Baso # (Auto) 0.1 Abs Immat Gran (auto) 0.18 H Absolute Neuts (auto) 8.0 Absolute Nucleated RBC 0.000 Nucleated RBC % (auto) 0.0 Smear Tech's Comments PT INR Anion Gap 16 Estim Creat Clear Calc 33.5 Estimated GFR 22 POC Glucose 196 H 207 H Random Glucose 217 H Calcium 8.5 D Magnesium 1.8 Total Bilirubin AST ALT Alkaline Phosphatase B-Natriuretic Peptide Total Protein Albumin Lipase TSH 1.18 Assessment and Plan (1) Acute hypoxemic respiratory failure due to COVID-19: Status: Acute (2) Insulin dependent diabetes: Status: Acute (3) Chronic renal failure, stage 4 (severe): Status: Acute Plan 63 year old morbidly obese white male with history of CAD s/p NV, CKD, T2DM and hypertension admitted with acute shortness of breath and hypoxia. Found to be positive for COVID-19 1. Acute hypoxic respiratory failure Secondary to COVID-19 infection; tested positive approximately 5 days ago - titrate O2 to maintain sats greater than equal 90% - Decadron 6 mg daily - consider short course of Remdesivir if clinically indicated 2. Type 2 Diabetes Mellitus -acceptable control on current therapies -continue Lantus at outpatient dosing -lispro correctional scale - adjust as indicated 3. Stage 4 CKD -at baseline -follow renals/divalents 4. Hypertension - acceptable control on current therapies - adjust as indicated Full Code Lovenox Patient requires ongoing hospitalization for IV Decadron to treat hypoxic respiratory failure in the backdrop of COVID 19 infection. Also has an O2 requirement which cannot be met at home as patient previously was not on oxygen. Will likely need specialist consultation if not improving in the next 24 hours Quality Stroke Does the patient have a stroke diagnosis?: No VTE Prior VTE?: No VTE Risk Level:: Medical - moderate - high VTE Device Contraindication: N/A - Device Ordered VTE Drug Contraindication: N/A - Med Ordered
[2023-06-20 16:28] LABS: Glucose, Whole Blood 220 mg/dL (60-115)
[2023-06-20 20:44] LABS: Glucose, Whole Blood 297 mg/dL (60-115)
[2023-06-20] MEDS: Loratadine 10 MG TABLET PO (21:33)
[2023-06-20] MEDS: Fenofibrate,Micronized 134 MG CAPSULE PO (21:33)
[2023-06-20] MEDS: dexAMETHasone sod phosphate 4 MG/ML VIAL 6 MG IVPUSH (21:33)
[2023-06-20] MEDS: Atorvastatin Calcium 80 MG TABLET PO (21:33)
[2023-06-20] MEDS: Losartan Potassium 50 MG TABLET PO (21:33)
[2023-06-20] MEDS: Insulin Glargine,Hum.rec.anlog 100 UNIT/ML 10 ML VIAL 26 UNIT SUBCUT (21:34)
[2023-06-20] MEDS: Enoxaparin Sodium 40 MG/0.4 ML SYRINGE SUBCUT (21:38)
[2023-06-21] VITALS (7 sets, daily range): BP systolic 104–167; BP diastolic 56–91; PULSE 65–74; RESP 18–20; TEMP 36.3–37.1; O2SAT 91–98
[2023-06-21 07:45] LABS: Glucose, Whole Blood 274 mg/dL (60-115)
[2023-06-21] MEDS: Metoprolol Tartrate 25 MG TABLET PO ×2 (07:58→20:30)
[2023-06-21] MEDS: Clopidogrel Bisulfate 75 MG TABLET PO (07:58)
[2023-06-21] MEDS: Aspirin Enteric Coated 81 MG TABLET.DR PO (07:59)
[2023-06-21] MEDS: Folic Acid 1 MG TABLET PO (07:59)
[2023-06-21] MEDS: Insulin Lispro 100 UNIT/ML 3 ML VIAL SUBCUT ×4 (07:59→23:25)
[2023-06-21] MEDS: Cholecalciferol (Vitamin D3) 25 MCG TABLET 50 MCG PO (07:59)
[2023-06-21] MEDS: Torsemide 20 MG TABLET 10 MG PO (07:59)
[2023-06-21] MEDS: amLODIPine Besylate 5 MG TABLET PO (07:59)
[2023-06-21] MEDS: 0.9 % Sodium Chloride Flush 3 ML SYRINGE IVFLUSH ×3 (08:00→20:31)
[2023-06-21 08:06] LABS: MANUAL DIFF FLAG NO
[2023-06-21 08:13] LABS: Basophils Percent Auto 0.3 % (0-2); Hemoglobin 9.3 g/dl (14.0-18.0); Imm Gran Pct Auto 1.3 % (0.0-0.4); Lymphocytes Absolute Auto 0.5 X10*3/uL (1.2-4.9); Lymphocytes Percent Auto 6.3 % (20-40); Mean Corpuscular Hemoglobin 26.8 pg (27.0-33.0); Mean Corpuscular Volume 86.5 fL (80.0-98.0); Mean Platelet Volume 9.1 fL (9.4-12.4); Monocytes Absolute Auto 0.3 X10*3/uL (0.1-1.2); Monocytes Percent Auto 3.9 % (2-11); Neutrophils Percent Auto 88.2 % (45-73); Platelet Count 310 X10*3/uL (160-400); Red Blood Count 3.47 X10*6/uL (4.60-5.80); Red Cell Distribution Width 13.9 % (11.0-16.0); White Blood Count 7.9 X10*3/uL (4.8-10.8)
[2023-06-21 08:30] LABS: Alanine Aminotransferase 18 U/L (0-40); Albumin Level 2.8 g/dL (3.5-5.0); Alkaline Phosphatase 50 U/L (39-117); Anion Gap 12 (12-20); Aspartate Amino Transferase 40 U/L (5-37); Bilirubin Total 0.3 mg/dL (0.0-1.0); Blood Urea Nitrogen 66 mg/dL (9-16); Calcium 8.5 mg/dL (8.4-10.2); Carbon Dioxide 26 mmol/L (22-29); Chloride 105 mmol/L (96-108); Estimated Glomerular Filt Rate 19; Glucose Fasting 283 mg/dL (60-99); Potassium 5.3 mmol/L (3.3-5.1); Sodium 138 mmol/L (135-145); Total Protein 5.7 g/dL (6.5-8.0)
--- NOTE | 2023-06-21 10:45 | HO.PM.IMPN ---
Subjective Subjective Date of Service: 06/21/23 Interval History: seen and examined this morning follow up for COVID 19 feeling better, still with cough, no sob at rest Review of Systems Review of Systems: Yes all other systems are reviewed and are negative Constitutional Constitutional: Denies chills and Denies fever(s) Cardiovascular Cardiovascular: Denies chest pain, Denies palpitations and Denies dyspnea Respiratory Respiratory: Reports cough and Denies dyspnea Endocrine Endocrine: Denies palpitations Physical Exam Vital Signs: Vital Signs: Last Vital Signs Temp 97.4 F 06/21/23 07:37 Pulse 65 06/21/23 07:37 Resp 18 06/21/23 07:37 BP 128/91 H 06/21/23 07:37 Pulse Ox 98 06/21/23 07:37 O2 Del Method Nasal Cannula 06/21/23 07:37 O2 Flow Rate 2 06/21/23 07:37 BMI result Body Mass Index 45.4 Const: General: cooperative, comfortable, no acute distress, alert and awake Nutritional Appearance: obese Orientation/consciousness: patient oriented x3 Resp: Other: diminished breath sounds, no wheezing Effort & Inspection: able to speak in complete sentences, no respiratory distress and no use of accessory muscles Cardio: Rate: regular rate GI: Inspection: No distended and Yes obesity Palpation (GI): Soft to palpation and nontender Neuro: Other: grossly nonfocal General: patient oriented x3 and moves all extremities Extrem: Other: b/l leg edema Objective Data Active Medications Acetaminophen (Acetaminophen 325 Mg Tablet) 650 mg PO Q6H PRN PRN Reason: Pain, Mild (Pain Scale 1-3) Amlodipine Besylate (Amlodipine Besylate 5 Mg Tablet) 5 mg PO DAILY [facility]; Protocol Last Admin: 06/21/23 07:59 Dose: 5 mg Documented By: DEMETRIO Aspirin (Aspirin Enteric Coated 81 Mg Tablet.) 81 mg PO DAILY [facility] Last Admin: 06/21/23 07:59 Dose: 81 mg Documented By: DEMETRIO Atorvastatin Calcium (Atorvastatin Calcium 80 Mg Tablet) 80 mg PO BEDTIME [facility] Last Admin: 06/20/23 21:33 Dose: 80 mg Documented By: WADE Clopidogrel Bisulfate (Clopidogrel Bisulfate 75 Mg Tablet) 75 mg PO DAILY [facility] Last Admin: 06/21/23 07:58 Dose: 75 mg Documented By: DEMETRIO Dexamethasone Sodium Phosphate (Dexamethasone Sod Phosphate 4 Mg/Ml Vial) 6 mg IVPUSH BEDTIME [facility] Last Admin: 06/20/23 21:33 Dose: 6 mg Documented By: WADE Dextrose (Dextrose 50 % 25 Gm/50 Ml Syringe) 25 gm IVPUSH Q15M PRN; Protocol PRN Reason: per Hypoglycemia Standing Ord. Enoxaparin Sodium (Enoxaparin Sodium 40 Mg/0.4 Ml Syringe) 40 mg SUBCUT Q24H [facility] Last Admin: 06/20/23 21:38 Dose: 40 mg Documented By: WADE Fenofibrate (Fenofibrate,Micronized 134 Mg Capsule) 134 mg PO BEDTIME [facility] Last Admin: 06/20/23 21:33 Dose: 134 mg Documented By: WADE Folic Acid (Folic Acid 1 Mg Tablet) 1 mg PO DAILY [facility] Last Admin: 06/21/23 07:59 Dose: 1 mg Documented By: DEMETRIO Glucose (Glucose Gel 15 Gm Gel..Gram.) 15 gm PO Q15M PRN; Protocol PRN Reason: per Hypoglycemia Standing Ord. Insulin Glargine (Insulin Glargine,Hum.Rec.Anlog 100 Unit/Ml 10 Ml Vial) 26 unit SUBCUT BEDTIME [facility] Last Admin: 06/20/23 21:34 Dose: 26 unit Documented By: WADE Insulin Human Lispro (Insulin Lispro 100 Unit/Ml 3 Ml Vial) 0 unit SUBCUT QIDACHS [facility]; Protocol Last Admin: 06/21/23 07:59 Dose: 6 unit Documented By: DEMETRIO Loratadine (Loratadine 10 Mg Tablet) 10 mg PO BEDTIME [facility] Last Admin: 06/20/23 21:33 Dose: 10 mg Documented By: WADE Lorazepam (Lorazepam 1 Mg Tablet) 1 mg PO BEDTIME PRN PRN Reason: anxiety Last Admin: 06/20/23 21:33 Dose: 1 mg Documented By: WADE Losartan Potassium (Losartan Potassium 50 Mg Tablet) 50 mg PO BEDTIME [facility]; Protocol Last Admin: 06/20/23 21:33 Dose: 50 mg Documented By: WADE Melatonin (Melatonin 3 Mg Tablet) 6 mg PO BEDTIME PRN PRN Reason: Insomnia Metoprolol Tartrate (Metoprolol Tartrate 25 Mg Tablet) 25 mg PO BID [facility]; Protocol Last Admin: 06/21/23 07:58 Dose: 25 mg Documented By: DEMETRIO Morphine Sulfate (Morphine Sulfate 4 Mg/Ml Cartridge) 2 mg IVPUSH Q4H PRN; Protocol PRN Reason: Pain, Severe (Pain Scale 7-10) Ondansetron HCl (Ondansetron Hcl 4 Mg/2 Ml Vial) 4 mg IVPUSH Q8H PRN PRN Reason: Nausea and Vomiting Senna (Sennosides 8.6 Mg Tablet) 17.2 mg PO BEDTIME PRN PRN Reason: Constipation Sodium Chloride (0.9 % Sodium Chloride Flush 3 Ml Syringe) 3 ml IVFLUSH QSHIFT [facility] Last Admin: 06/21/23 08:00 Dose: 3 ml Documented By: DEMETRIO Torsemide (Torsemide 20 Mg Tablet) 10 mg PO DAILY [facility]; Protocol Last Admin: 06/21/23 07:59 Dose: 10 mg Documented By: DEMETRIO Vitamin D (Cholecalciferol (Vitamin D3) 25 Mcg Tablet) 50 mcg PO DAILY [facility] Last Admin: 06/21/23 07:59 Dose: 50 mcg Documented By: DEMETRIO Labs 06/21/23 07:49 06/21/23 07:49 Labs: Laboratory Results - last 24 hr 06/20/23 06/20/23 06/20/23 11:21 16:24 20:36 MCV MCH MCHC RDW Plt Count MPV Immature Gran % (Auto) Neut % (Auto) Lymph % (Auto) [place] % (Auto) Eos % (Auto) Baso % (Auto) Lymph # (Auto) [place] # (Auto) Eos # (Auto) Baso # (Auto) Abs Immat Gran (auto) Absolute Neuts (auto) Absolute Nucleated RBC Nucleated RBC % (auto) Anion Gap Estim Creat Clear Calc Estimated GFR POC Glucose 207 H 220 H 297 H Fasting Glucose Calcium Total Bilirubin AST ALT Alkaline Phosphatase Total Protein Albumin 06/21/23 06/21/23 07:36 07:49 MCV 86.5 MCH 26.8 L MCHC 31.0 RDW 13.9 Plt Count 310 MPV 9.1 L Immature Gran % (Auto) 1.3 H Neut % (Auto) 88.2 H Lymph % (Auto) 6.3 L [place] % (Auto) 3.9 Eos % (Auto) 0.0 Baso % (Auto) 0.3 Lymph # (Auto) 0.5 L [place] # (Auto) 0.3 Eos # (Auto) 0.0 Baso # (Auto) 0.0 Abs Immat Gran (auto) 0.10 H Absolute Neuts (auto) 7.0 Absolute Nucleated RBC 0.000 Nucleated RBC % (auto) 0.0 Anion Gap 12 Estim Creat Clear Calc 30.0 Estimated GFR 19 POC Glucose 274 H Fasting Glucose 283 H Calcium 8.5 Total Bilirubin 0.3 AST 40 H ALT 18 Alkaline Phosphatase 50 Total Protein 5.7 L Albumin 2.8 L Assessment and Plan (1) Acute hypoxemic respiratory failure due to COVID-19: Status: Acute (2) Chronic renal failure, stage 4 (severe): Status: Acute Plan 63 year old morbidly obese white male with history of CAD s/p DC, CKD, T2DM and hypertension admitted with acute shortness of breath and hypoxia. Found to be positive for COVID-19 Acute hypoxic respiratory failure Secondary to COVID-19 infection CXR negative has been treated with decadron, continue currently on 2L, will attempt to wean Type 2 Diabetes Mellitus continue Lantus, SSI follow POCs ADA diet YENNY on Stage 4 CKD creatinine trending up to 3.2 will hold losartan, torsemide follow BMP Hyperkalemia k 5.3, due to YENNY, arb will give one dose of lokelma hold losartan follow BMP Hypertension continue norvasc, metoprolol Morbid obesity BMI 45.4 likely contributing to hypoxia, respiratory symptoms weight loss encouraged Full Code DVT ppx - Lovenox attending - Dr. landeros Patient requires ongoing hospitalization for IV Decadron to treat hypoxic respiratory failure in the backdrop of COVID 19 infection. Also has an O2 requirement which cannot be met at home as patient previously was not on oxygen Quality Stroke Does the patient have a stroke diagnosis?: No VTE Prior VTE?: No VTE Risk Level:: Medical - moderate - high VTE Device Contraindication: N/A - Device Ordered VTE Drug Contraindication: N/A - Med Ordered
[2023-06-21 11:49] LABS: Glucose, Whole Blood 296 mg/dL (60-115)
[2023-06-21] MEDS: Sodium Zirconium Cyclosilicate 5 GM POWD.PACK PO (12:14)
--- NOTE | 2023-06-21 15:05 | P.CDIM_ITS ---
PROVIDER RESPONSE TEXT: To clarify, the appropriate diagnosis supported by the clinical indicators: Hyperkalemia QUERY TEXT: PHYSICIAN'S DOCUMENTATION REQUEST Date of Query: 06/21/2023 11:26 AM EST Patient Name: Jerson Sibley Admit Date: 06/20/2023 Dear Fern Holguin, A review of the medical record indicates additional documentation may be needed. Please review below and update the documentation accordingly. Clinical Indicators: LAB FINDINGS: potassium 5.3 H Based on the above, is there a diagnosis that correlates with these lab findings: Hyperkalemia Labs indicate a diagnosis of (please specify) Other (explain) Clinically unable to determine (explain) Thank you, Laxmi Mayo, CCS, CDIS Use of terms such as suspected, likely, concern for, or probable (associated with a specific diagnosi s that is being evaluated, monitored, or treated as if it exists) are acceptable and can be coded in the inpatient se tting, when documented at the time of discharge. Please use your independent medical judgment in providing your response. THIS QUERY IS PART OF THE PERMANENT MEDICAL RECORD
[2023-06-21 16:06] LABS: Glucose, Whole Blood 324 mg/dL (60-115)
[2023-06-21 20:09] LABS: Glucose, Whole Blood 289 mg/dL (60-115)
[2023-06-21] MEDS: Fenofibrate,Micronized 134 MG CAPSULE PO (20:30)
[2023-06-21] MEDS: dexAMETHasone sod phosphate 4 MG/ML VIAL 6 MG IVPUSH (20:31)
[2023-06-21] MEDS: Atorvastatin Calcium 80 MG TABLET PO (20:31)
[2023-06-21] MEDS: Loratadine 10 MG TABLET PO (20:31)
[2023-06-21] MEDS: LORazepam 1 MG TABLET PO (23:24)
[2023-06-21] MEDS: Acetaminophen 325 MG TABLET 650 MG PO (23:25)
[2023-06-21] MEDS: Enoxaparin Sodium 40 MG/0.4 ML SYRINGE SUBCUT (23:25)
[2023-06-21] MEDS: Insulin Glargine,Hum.rec.anlog 100 UNIT/ML 10 ML VIAL 26 UNIT SUBCUT (23:26)
[2023-06-22] VITALS (9 sets, daily range): BP systolic 154–200; BP diastolic 67–91; PULSE 63–94; RESP 16–20; TEMP 36.4–37.8; O2SAT 94–98
--- NOTE | 2023-06-22 01:29 | PC.NURSE ---
O2 2L via NC applied at due to pt reports he uses a CPAP at home. Oxygen saturations within normal range during earlier part of evening while sitting in chair.
[2023-06-22 07:34] LABS: MANUAL DIFF FLAG NO
[2023-06-22 07:38] LABS: Basophils Percent Auto 0.3 % (0-2); Eosinophils Percent Auto 0.1 % (0-4); Hematocrit 30.5 % (42.0-52.0); Hemoglobin 9.7 g/dl (14.0-18.0); Imm Gran Abs Auto 0.14 X10*3/uL (0.00-0.03); Imm Gran Pct Auto 1.8 % (0.0-0.4); Lymphocytes Absolute Auto 0.6 X10*3/uL (1.2-4.9); Lymphocytes Percent Auto 7.3 % (20-40); Mean Corpuscular HGB Conc 31.8 g/dl (31.0-36.0); Mean Corpuscular Hemoglobin 27.3 pg (27.0-33.0); Mean Corpuscular Volume 85.9 fL (80.0-98.0); Mean Platelet Volume 8.9 fL (9.4-12.4); Monocytes Absolute Auto 0.3 X10*3/uL (0.1-1.2); Monocytes Percent Auto 3.5 % (2-11); Neutrophils Absolute Auto 6.6 x10*3/uL (2.0-8.3); Platelet Count 328 X10*3/uL (160-400); Red Blood Count 3.55 X10*6/uL (4.60-5.80); Red Cell Distribution Width 13.6 % (11.0-16.0); White Blood Count 7.6 X10*3/uL (4.8-10.8)
[2023-06-22 07:58] LABS: Alanine Aminotransferase 22 U/L (0-40); Albumin Level 2.9 g/dL (3.5-5.0); Alkaline Phosphatase 58 U/L (39-117); Anion Gap 12 (12-20); Aspartate Amino Transferase 37 U/L (5-37); Bilirubin Total 0.3 mg/dL (0.0-1.0); Blood Urea Nitrogen 69 mg/dL (9-16); Calcium 8.3 mg/dL (8.4-10.2); Carbon Dioxide 26 mmol/L (22-29); Chloride 105 mmol/L (96-108); Creatinine Clr Calc Pharmacy 33.1; Estimated Glomerular Filt Rate 22; Glucose Fasting 297 mg/dL (60-99); Sodium 138 mmol/L (135-145); Total Protein 5.6 g/dL (6.5-8.0)
[2023-06-22 08:13] LABS: Glucose, Whole Blood 292 mg/dL (60-115)
[2023-06-22] MEDS: Insulin Lispro 100 UNIT/ML 3 ML VIAL SUBCUT ×4 (08:32→21:07)
[2023-06-22] MEDS: amLODIPine Besylate 5 MG TABLET PO ×2 (08:33→11:28)
[2023-06-22] MEDS: Clopidogrel Bisulfate 75 MG TABLET PO (08:33)
[2023-06-22] MEDS: Folic Acid 1 MG TABLET PO (08:33)
[2023-06-22] MEDS: Metoprolol Tartrate 25 MG TABLET PO ×2 (08:33→21:05)
[2023-06-22] MEDS: 0.9 % Sodium Chloride Flush 3 ML SYRINGE IVFLUSH ×2 (08:33→21:13)
[2023-06-22] MEDS: Cholecalciferol (Vitamin D3) 25 MCG TABLET 50 MCG PO (08:33)
[2023-06-22] MEDS: Aspirin Enteric Coated 81 MG TABLET.DR PO (08:33)
--- NOTE | 2023-06-22 11:03 | MHC.CM.PN ---
EMR REVIEWED, PER HOSPITALIST PT HYPOXIC, PT CONT'S TO RECEIVE IV DECADRON/ABX AND ON SUPPLEMENTAL O2 2L NC, NO PLAN FOR DC, CM WILL CONT TO FOLLOW DC NEEDS.
[2023-06-22 12:14] LABS: Glucose, Whole Blood 271 mg/dL (60-115)
--- NOTE | 2023-06-22 13:46 | P.PNIM_ITS ---
Subjective Subjective Date of Service: 06/22/23 Interval History: seen and examined this morning follow up for COVID 19 reporting lots of cough, PND and congestion overnight; feeling a little better this morning Review of Systems Review of Systems: Yes all other systems are reviewed and are negative Constitutional Constitutional: Denies chills and Denies fever(s) Cardiovascular Cardiovascular: Denies chest pain and Denies palpitations Respiratory Respiratory: Reports cough Gastrointestinal Gastrointestinal: Denies abdominal pain Endocrine Endocrine: Denies palpitations Physical Exam 2 Vital Signs: Vital Signs: Last Vital Signs Temp 97.6 F 06/22/23 11:36 Pulse 66 06/22/23 11:36 Resp 16 06/22/23 11:36 BP 187/83 H 06/22/23 11:36 Pulse Ox 98 06/22/23 11:36 O2 Del Method Nasal Cannula 06/22/23 11:36 O2 Flow Rate 2 06/22/23 11:36 BMI result Body Mass Index 45.4 Const: General: cooperative, comfortable, no acute distress, alert and awake Nutritional Appearance: obese Orientation/consciousness: patient oriented x3 Resp: Other: diminished breath sounds, scattered wheeze Effort & Inspection: able to speak in complete sentences, no respiratory distress and no use of accessory muscles Cardio: Rate: regular rate GI: Inspection: No distended and Yes obesity Palpation (GI): Soft to palpation and nontender Neuro: Other: grossly nonfocal General: patient oriented x3 and moves all extremities Extrem: Other: b/l leg edema Objective Data Active Medications Acetaminophen (Acetaminophen 325 Mg Tablet) 650 mg PO Q6H PRN PRN Reason: Pain, Mild (Pain Scale 1-3) Last Admin: 06/21/23 23:25 Dose: 650 mg Documented By: WADE Amlodipine Besylate (Amlodipine Besylate 5 Mg Tablet) 5 mg PO DAILY [facility]; Protocol Last Admin: 06/22/23 08:33 Dose: 5 mg Documented By: DEMETRIO Aspirin (Aspirin Enteric Coated 81 Mg Tablet.) 81 mg PO DAILY [facility] Last Admin: 06/22/23 08:33 Dose: 81 mg Documented By: DEMETRIO Atorvastatin Calcium (Atorvastatin Calcium 80 Mg Tablet) 80 mg PO BEDTIME [facility] Last Admin: 06/21/23 20:31 Dose: 80 mg Documented By: WADE Clopidogrel Bisulfate (Clopidogrel Bisulfate 75 Mg Tablet) 75 mg PO DAILY [facility] Last Admin: 06/22/23 08:33 Dose: 75 mg Documented By: DEMETRIO Dexamethasone Sodium Phosphate (Dexamethasone Sod Phosphate 4 Mg/Ml Vial) 6 mg IVPUSH BEDTIME [facility] Last Admin: 06/21/23 20:31 Dose: 6 mg Documented By: WADE Dextrose (Dextrose 50 % 25 Gm/50 Ml Syringe) 25 gm IVPUSH Q15M PRN; Protocol PRN Reason: per Hypoglycemia Standing Ord. Enoxaparin Sodium (Enoxaparin Sodium 40 Mg/0.4 Ml Syringe) 40 mg SUBCUT Q24H [facility] Last Admin: 06/21/23 23:25 Dose: 40 mg Documented By: WADE Fenofibrate (Fenofibrate,Micronized 134 Mg Capsule) 134 mg PO BEDTIME [facility] Last Admin: 06/21/23 20:30 Dose: 134 mg Documented By: WADE Folic Acid (Folic Acid 1 Mg Tablet) 1 mg PO DAILY [facility] Last Admin: 06/22/23 08:33 Dose: 1 mg Documented By: DEMETRIO Glucose (Glucose Gel 15 Gm Gel..Gram.) 15 gm PO Q15M PRN; Protocol PRN Reason: per Hypoglycemia Standing Ord. Insulin Glargine (Insulin Glargine,Hum.Rec.Anlog 100 Unit/Ml 10 Ml Vial) 26 unit SUBCUT BEDTIME [facility] Last Admin: 06/21/23 23:26 Dose: 26 unit Documented By: WADE Insulin Human Lispro (Insulin Lispro 100 Unit/Ml 3 Ml Vial) 0 unit SUBCUT QIDACHS [facility]; Protocol Last Admin: 06/22/23 12:13 Dose: 6 unit Documented By: DEMETRIO Loratadine (Loratadine 10 Mg Tablet) 10 mg PO BEDTIME [facility] Last Admin: 06/21/23 20:31 Dose: 10 mg Documented By: WADE Lorazepam (Lorazepam 1 Mg Tablet) 1 mg PO BEDTIME PRN PRN Reason: anxiety Last Admin: 06/21/23 23:24 Dose: 1 mg Documented By: WADE Losartan Potassium (Losartan Potassium 50 Mg Tablet) 50 mg PO BEDTIME [facility]; Protocol Last Admin: 06/20/23 21:33 Dose: 50 mg Documented By: WADE Melatonin (Melatonin 3 Mg Tablet) 6 mg PO BEDTIME PRN PRN Reason: Insomnia Metoprolol Tartrate (Metoprolol Tartrate 25 Mg Tablet) 25 mg PO BID [facility]; Protocol Last Admin: 06/22/23 08:33 Dose: 25 mg Documented By: DEMETRIO Morphine Sulfate (Morphine Sulfate 4 Mg/Ml Cartridge) 2 mg IVPUSH Q4H PRN; Protocol PRN Reason: Pain, Severe (Pain Scale 7-10) Ondansetron HCl (Ondansetron Hcl 4 Mg/2 Ml Vial) 4 mg IVPUSH Q8H PRN PRN Reason: Nausea and Vomiting Senna (Sennosides 8.6 Mg Tablet) 17.2 mg PO BEDTIME PRN PRN Reason: Constipation Sodium Chloride (0.9 % Sodium Chloride Flush 3 Ml Syringe) 3 ml IVFLUSH QSHIFT [facility] Last Admin: 06/22/23 08:33 Dose: 3 ml Documented By: DEMETRIO Torsemide (Torsemide 20 Mg Tablet) 10 mg PO DAILY [facility]; Protocol Last Admin: 06/21/23 07:59 Dose: 10 mg Documented By: DEMETRIO Vitamin D (Cholecalciferol (Vitamin D3) 25 Mcg Tablet) 50 mcg PO DAILY [facility] Last Admin: 06/22/23 08:33 Dose: 50 mcg Documented By: DEMETRIO Labs 06/22/23 07:27 06/22/23 07:27 Labs: Laboratory Results - last 24 hr 06/21/23 06/21/23 06/22/23 16:02 20:06 07:27 MCV 85.9 MCH 27.3 MCHC 31.8 RDW 13.6 Plt Count 328 MPV 8.9 L Immature Gran % (Auto) 1.8 H Neut % (Auto) 87.0 H Lymph % (Auto) 7.3 L [place] % (Auto) 3.5 Eos % (Auto) 0.1 Baso % (Auto) 0.3 Lymph # (Auto) 0.6 L [place] # (Auto) 0.3 Eos # (Auto) 0.0 Baso # (Auto) 0.0 Abs Immat Gran (auto) 0.14 H Absolute Neuts (auto) 6.6 Absolute Nucleated RBC 0.000 Nucleated RBC % (auto) 0.0 Anion Gap 12 Estim Creat Clear Calc 33.1 Estimated GFR 22 POC Glucose 324 H 289 H Fasting Glucose 297 H Calcium 8.3 L Total Bilirubin 0.3 AST 37 ALT 22 Alkaline Phosphatase 58 Total Protein 5.6 L Albumin 2.9 L 06/22/23 06/22/23 07:57 11:43 MCV MCH MCHC RDW Plt Count MPV Immature Gran % (Auto) Neut % (Auto) Lymph % (Auto) [place] % (Auto) Eos % (Auto) Baso % (Auto) Lymph # (Auto) [place] # (Auto) Eos # (Auto) Baso # (Auto) Abs Immat Gran (auto) Absolute Neuts (auto) Absolute Nucleated RBC Nucleated RBC % (auto) Anion Gap Estim Creat Clear Calc Estimated GFR POC Glucose 292 H 271 H Fasting Glucose Calcium Total Bilirubin AST ALT Alkaline Phosphatase Total Protein Albumin Assessment and Plan (1) Morbid obesity with BMI of 45.0-49.9, adult: Status: Acute (2) Acute hypoxemic respiratory failure due to COVID-19: Status: Acute Plan 63 year old morbidly obese white male with history of CAD s/p CA, CKD, T2DM and hypertension admitted with acute shortness of breath and hypoxia. Found to be positive for COVID-19 Acute hypoxic respiratory failure Secondary to COVID-19 infection CXR negative continue decadron, prn breathing treatments, cough medication currently on 2L, will attempt to wean Type 2 Diabetes Mellitus continue Lantus, SSI follow POCs ADA diet YENNY on Stage 4 CKD creatinine up to 3.2, now beginning to trend down hold losartan, torsemide follow BMP Hyperkalemia resolved with lokelma hold losartan follow BMP Hypertension bp elevated continue norvasc, metoprolol losartan on hold for yenny will give an extra dose of norvasc follow bp Morbid obesity BMI 45.4 likely contributing to hypoxia, respiratory symptoms weight loss encouraged LYNSEY will order CPAP Full Code DVT ppx - Lovenox attending - Dr. landeros Patient requires ongoing hospitalization for IV Decadron to treat hypoxic respiratory failure in the backdrop of COVID 19 infection. Also has an O2 requirement which cannot be met at home as patient previously was not on oxygen Quality Stroke Does the patient have a stroke diagnosis?: No VTE Prior VTE?: No VTE Risk Level:: Medical - moderate - high VTE Device Contraindication: N/A - Device Ordered VTE Drug Contraindication: N/A - Med Ordered
[2023-06-22] MEDS: guaiFENesin LA 600 MG TAB.ER.12H PO ×2 (14:25→21:05)
[2023-06-22 17:13] LABS: Glucose, Whole Blood 338 mg/dL (60-115)
[2023-06-22] MEDS: LORazepam 1 MG TABLET PO (18:56)
[2023-06-22 20:25] LABS: Glucose, Whole Blood 309 mg/dL (60-115)
[2023-06-22] MEDS: Atorvastatin Calcium 80 MG TABLET PO (21:04)
[2023-06-22] MEDS: Loratadine 10 MG TABLET PO (21:05)
[2023-06-22] MEDS: Fenofibrate,Micronized 134 MG CAPSULE PO (21:05)
[2023-06-22] MEDS: Enoxaparin Sodium 40 MG/0.4 ML SYRINGE SUBCUT (21:07)
[2023-06-22] MEDS: Insulin Glargine,Hum.rec.anlog 100 UNIT/ML 10 ML VIAL 26 UNIT SUBCUT (21:07)
[2023-06-22] MEDS: dexAMETHasone sod phosphate 4 MG/ML VIAL 6 MG IVPUSH (21:08)
[2023-06-23] VITALS (9 sets, daily range): BP systolic 140–187; BP diastolic 76–86; PULSE 62–74; RESP 15–20; TEMP 35.7–37.2; O2SAT 94–98
[2023-06-23] MEDS: Acetaminophen 325 MG TABLET 650 MG PO ×2 (00:35→21:36)
[2023-06-23 07:09] LABS: MANUAL DIFF FLAG NO
[2023-06-23 07:25] LABS: Basophils Percent Auto 0.2 % (0-2); Hematocrit 27.1 % (42.0-52.0); Hemoglobin 8.6 g/dl (14.0-18.0); Imm Gran Pct Auto 1.2 % (0.0-0.4); Lymphocytes Absolute Auto 0.7 X10*3/uL (1.2-4.9); Mean Corpuscular HGB Conc 31.7 g/dl (31.0-36.0); Mean Corpuscular Hemoglobin 26.7 pg (27.0-33.0); Mean Corpuscular Volume 84.2 fL (80.0-98.0); Monocytes Absolute Auto 0.5 X10*3/uL (0.1-1.2); Monocytes Percent Auto 5.7 % (2-11); Neutrophils Absolute Auto 6.9 x10*3/uL (2.0-8.3); Neutrophils Percent Auto 83.9 % (45-73); Platelet Count 318 X10*3/uL (160-400); Red Blood Count 3.22 X10*6/uL (4.60-5.80); Red Cell Distribution Width 13.6 % (11.0-16.0); White Blood Count 8.2 X10*3/uL (4.8-10.8)
[2023-06-23 07:29] LABS: Glucose, Whole Blood 210 mg/dL (60-115)
[2023-06-23 07:50] LABS: Alanine Aminotransferase 20 U/L (0-40); Albumin Level 2.7 g/dL (3.5-5.0); Alkaline Phosphatase 56 U/L (39-117); Anion Gap 11 (12-20); Aspartate Amino Transferase 31 U/L (5-37); Bilirubin Total 0.4 mg/dL (0.0-1.0); Blood Urea Nitrogen 69 mg/dL (9-16); Calcium 8.2 mg/dL (8.4-10.2); Carbon Dioxide 25 mmol/L (22-29); Chloride 107 mmol/L (96-108); Creatinine Clr Calc Pharmacy 35.8; Estimated Glomerular Filt Rate 24; Glucose Fasting 210 mg/dL (60-99); Potassium 4.6 mmol/L (3.3-5.1); Sodium 138 mmol/L (135-145); Total Protein 5.2 g/dL (6.5-8.0)
[2023-06-23] MEDS: Insulin Lispro 100 UNIT/ML 3 ML VIAL SUBCUT ×4 (09:27→21:38)
[2023-06-23] MEDS: 0.9 % Sodium Chloride Flush 3 ML SYRINGE IVFLUSH ×3 (09:28→21:37)
[2023-06-23] MEDS: Folic Acid 1 MG TABLET PO (09:28)
[2023-06-23] MEDS: Torsemide 20 MG TABLET 10 MG PO (09:28)
[2023-06-23] MEDS: Cholecalciferol (Vitamin D3) 25 MCG TABLET 50 MCG PO (09:28)
[2023-06-23] MEDS: Aspirin Enteric Coated 81 MG TABLET.DR PO (09:28)
[2023-06-23] MEDS: guaiFENesin LA 600 MG TAB.ER.12H PO ×2 (09:28→21:36)
[2023-06-23] MEDS: Metoprolol Tartrate 25 MG TABLET PO ×2 (09:28→21:36)
[2023-06-23] MEDS: Clopidogrel Bisulfate 75 MG TABLET PO (09:28)
[2023-06-23] MEDS: amLODIPine Besylate 5 MG TABLET PO ×2 (09:28→13:23)
[2023-06-23] MEDS: ondansetron HCL 4 MG/2 ML VIAL IVPUSH (10:58)
[2023-06-23 11:05] LABS: Glucose, Whole Blood 230 mg/dL (60-115)
[2023-06-23 16:51] LABS: Glucose, Whole Blood 265 mg/dL (60-115)
--- NOTE | 2023-06-23 16:52 | HO.PM.IMPN ---
Subjective Subjective Date of Service: 06/23/23 Interval History: seen and examined this morning follow up for covid denies sob but reporting cough, congestion and post nasal drip did not like CPAP overnight has difficulty with mobility at baseline and is not eager to get out of bed Review of Systems Review of Systems: Yes all other systems are reviewed and are negative Constitutional Constitutional: Denies chills and Denies fever(s) Cardiovascular Cardiovascular: Denies chest pain, Denies palpitations and Reports dyspnea Respiratory Respiratory: Denies cough and Reports dyspnea Endocrine Endocrine: Denies palpitations Physical Exam Vital Signs: Vital Signs: Last Vital Signs Temp 96.2 F L 06/23/23 16:00 Pulse 69 06/23/23 16:00 Resp 16 06/23/23 16:00 BP 150/86 H 06/23/23 16:00 Pulse Ox 67 L 06/23/23 16:00 O2 Del Method Nasal Cannula 06/23/23 16:00 O2 Flow Rate 94 06/23/23 16:00 BMI result Body Mass Index 45.4 Const: General: cooperative, comfortable, no acute distress, alert and awake Nutritional Appearance: obese Orientation/consciousness: patient oriented x3 Resp: Other: diminished breath sounds, scattered wheeze Effort & Inspection: able to speak in complete sentences, no respiratory distress and no use of accessory muscles Cardio: Rate: regular rate GI: Inspection: No distended and Yes obesity Palpation (GI): Soft to palpation and nontender Neuro: Other: grossly nonfocal General: patient oriented x3 and moves all extremities Extrem: Other: b/l leg edema Objective Data Active Medications Acetaminophen (Acetaminophen 325 Mg Tablet) 650 mg PO Q6H PRN PRN Reason: Pain, Mild (Pain Scale 1-3) Last Admin: 06/23/23 00:35 Dose: 650 mg Documented By: GEOVANNY Albuterol Sulfate (Albuterol Sulfate (0.042%) 1.25 Mg/3 Ml Vial.Neb) 1.25 mg INHALE RQ6H PRN PRN Reason: Shortness of Breath/Wheezing Amlodipine Besylate (Amlodipine Besylate 10 Mg Tablet) 10 mg PO DAILY [facility]; Protocol Aspirin (Aspirin Enteric Coated 81 Mg Tablet.Dr) 81 mg PO DAILY [facility] Last Admin: 06/23/23 09:28 Dose: 81 mg Documented By: RAEANN Atorvastatin Calcium (Atorvastatin Calcium 80 Mg Tablet) 80 mg PO BEDTIME [facility] Last Admin: 06/22/23 21:04 Dose: 80 mg Documented By: GEOVANNY Benzonatate (Benzonatate 100 Mg Capsule) 200 mg PO TID PRN PRN Reason: Cough Clopidogrel Bisulfate (Clopidogrel Bisulfate 75 Mg Tablet) 75 mg PO DAILY [facility] Last Admin: 06/23/23 09:28 Dose: 75 mg Documented By: RAEANN Dexamethasone Sodium Phosphate (Dexamethasone Sod Phosphate 4 Mg/Ml Vial) 6 mg IVPUSH BEDTIME [facility] Last Admin: 06/22/23 21:08 Dose: 6 mg Documented By: GEOVANNY Dextrose (Dextrose 50 % 25 Gm/50 Ml Syringe) 25 gm IVPUSH Q15M PRN; Protocol PRN Reason: per Hypoglycemia Standing Ord. Enoxaparin Sodium (Enoxaparin Sodium 40 Mg/0.4 Ml Syringe) 40 mg SUBCUT Q24H [facility] Last Admin: 06/22/23 21:07 Dose: 40 mg Documented By: GEOVANNY Fenofibrate (Fenofibrate,Micronized 134 Mg Capsule) 134 mg PO BEDTIME [facility] Last Admin: 06/22/23 21:05 Dose: 134 mg Documented By: GEOVANNY Folic Acid (Folic Acid 1 Mg Tablet) 1 mg PO DAILY [facility] Last Admin: 06/23/23 09:28 Dose: 1 mg Documented By: RAEANN Glucose (Glucose Gel 15 Gm Gel..Gram.) 15 gm PO Q15M PRN; Protocol PRN Reason: per Hypoglycemia Standing Ord. Guaifenesin (Guaifenesin La 600 Mg Tab.Er.12h) 600 mg PO BID [facility] Last Admin: 06/23/23 09:28 Dose: 600 mg Documented By: RAEANN Insulin Glargine (Insulin Glargine,Hum.Rec.Anlog 100 Unit/Ml 10 Ml Vial) 26 unit SUBCUT BEDTIME [facility] Last Admin: 06/22/23 21:07 Dose: 26 unit Documented By: GEOVANNY Insulin Human Lispro (Insulin Lispro 100 Unit/Ml 3 Ml Vial) 0 unit SUBCUT QIDACHS [facility]; Protocol Last Admin: 06/23/23 13:23 Dose: 4 unit Documented By: RAEANN Loratadine (Loratadine 10 Mg Tablet) 10 mg PO BEDTIME [facility] Last Admin: 06/22/23 21:05 Dose: 10 mg Documented By: GEOVANNY Lorazepam (Lorazepam 1 Mg Tablet) 1 mg PO BEDTIME PRN PRN Reason: anxiety Last Admin: 06/22/23 18:56 Dose: 1 mg Documented By: DEMETRIO Losartan Potassium (Losartan Potassium 50 Mg Tablet) 50 mg PO BEDTIME [facility]; Protocol Last Admin: 06/20/23 21:33 Dose: 50 mg Documented By: WADE Melatonin (Melatonin 3 Mg Tablet) 6 mg PO BEDTIME PRN PRN Reason: Insomnia Metoprolol Tartrate (Metoprolol Tartrate 25 Mg Tablet) 25 mg PO BID [facility]; Protocol Last Admin: 06/23/23 09:28 Dose: 25 mg Documented By: RAEANN Morphine Sulfate (Morphine Sulfate 4 Mg/Ml Cartridge) 2 mg IVPUSH Q4H PRN; Protocol PRN Reason: Pain, Severe (Pain Scale 7-10) Ondansetron HCl (Ondansetron Hcl 4 Mg/2 Ml Vial) 4 mg IVPUSH Q8H PRN PRN Reason: Nausea and Vomiting Last Admin: 06/23/23 10:58 Dose: 4 mg Documented By: RAEANN Senna (Sennosides 8.6 Mg Tablet) 17.2 mg PO BEDTIME PRN PRN Reason: Constipation Sodium Chloride (0.9 % Sodium Chloride Flush 3 Ml Syringe) 3 ml IVFLUSH QSHIFT [facility] Last Admin: 06/23/23 09:28 Dose: 3 ml Documented By: RAEANN Torsemide (Torsemide 20 Mg Tablet) 10 mg PO DAILY [facility]; Protocol Last Admin: 06/23/23 09:28 Dose: 10 mg Documented By: RAEANN Vitamin D (Cholecalciferol (Vitamin D3) 25 Mcg Tablet) 50 mcg PO DAILY [facility] Last Admin: 06/23/23 09:28 Dose: 50 mcg Documented By: RAEANN Labs 06/23/23 06:47 06/23/23 06:47 Labs: Laboratory Results - last 24 hr 06/22/23 06/22/23 06/23/23 16:20 20:17 06:47 MCV 84.2 MCH 26.7 L MCHC 31.7 RDW 13.6 Plt Count 318 MPV 9.0 L Immature Gran % (Auto) 1.2 H Neut % (Auto) 83.9 H Lymph % (Auto) 9.0 L [place] % (Auto) 5.7 Eos % (Auto) 0.0 Baso % (Auto) 0.2 Lymph # (Auto) 0.7 L [place] # (Auto) 0.5 Eos # (Auto) 0.0 Baso # (Auto) 0.0 Abs Immat Gran (auto) 0.10 H Absolute Neuts (auto) 6.9 Absolute Nucleated RBC 0.000 Nucleated RBC % (auto) 0.0 Anion Gap 11 L Estim Creat Clear Calc 35.8 Estimated GFR 24 POC Glucose 338 H 309 H Fasting Glucose 210 H Calcium 8.2 L Total Bilirubin 0.4 AST 31 ALT 20 Alkaline Phosphatase 56 Total Protein 5.2 L Albumin 2.7 L 06/23/23 06/23/23 06/23/23 07:22 10:58 16:30 MCV MCH MCHC RDW Plt Count MPV Immature Gran % (Auto) Neut % (Auto) Lymph % (Auto) [place] % (Auto) Eos % (Auto) Baso % (Auto) Lymph # (Auto) [place] # (Auto) Eos # (Auto) Baso # (Auto) Abs Immat Gran (auto) Absolute Neuts (auto) Absolute Nucleated RBC Nucleated RBC % (auto) Anion Gap Estim Creat Clear Calc Estimated GFR POC Glucose 210 H 230 H 265 H Fasting Glucose Calcium Total Bilirubin AST ALT Alkaline Phosphatase Total Protein Albumin Assessment and Plan (1) COVID-19: Status: Acute Plan 63 year old morbidly obese white male with history of CAD s/p [place], CKD, T2DM and hypertension admitted with acute shortness of breath and hypoxia. Found to be positive for COVID-19 Acute hypoxic respiratory failure Secondary to COVID-19 infection exacerbated by LYNSEY and probably obesity hypoventilation CXR negative continue decadron, prn breathing treatments, cough medication currently on 1L, will attempt to wean Type 2 Diabetes Mellitus continue Lantus, SSI follow POCs ADA diet YENNY on Stage 4 CKD creatinine up to 3.2, back down to baseline resume losartan, torsemide follow BMP Hyperkalemia resolved with lokelma hold losartan follow BMP Hypertension bp elevated continue norvasc, increase dose to 10 mg continue metoprolol, resume losartan follow bp HFpEF continue torsemide chronic leg edema reports surgery to left ankle causing chronic edema Morbid obesity BMI 45.4 likely contributing to hypoxia, respiratory symptoms minimally ambulatory at baseline weight loss encouraged LYNSEY CPAP Full Code DVT ppx - Lovenox attending - Dr. Wade dispo - PT eval - rec STR Patient requires ongoing hospitalization for IV Decadron to treat hypoxic respiratory failure in the backdrop of COVID 19 infection. Also has an O2 requirement which cannot be met at home as patient previously was not on oxygen Quality Stroke Does the patient have a stroke diagnosis?: No VTE Prior VTE?: No VTE Risk Level:: Medical - moderate - high VTE Device Contraindication: N/A - Device Ordered VTE Drug Contraindication: N/A - Med Ordered
[2023-06-23 20:41] LABS: Glucose, Whole Blood 225 mg/dL (60-115)
[2023-06-23] MEDS: Fenofibrate,Micronized 134 MG CAPSULE PO (21:36)
[2023-06-23] MEDS: Atorvastatin Calcium 80 MG TABLET PO (21:36)
[2023-06-23] MEDS: Losartan Potassium 50 MG TABLET PO (21:36)
[2023-06-23] MEDS: Melatonin 3 MG TABLET 6 MG PO (21:36)
[2023-06-23] MEDS: LORazepam 1 MG TABLET PO (21:36)
[2023-06-23] MEDS: Loratadine 10 MG TABLET PO (21:36)
[2023-06-23] MEDS: Enoxaparin Sodium 40 MG/0.4 ML SYRINGE SUBCUT (21:37)
[2023-06-23] MEDS: Insulin Glargine,Hum.rec.anlog 100 UNIT/ML 10 ML VIAL 26 UNIT SUBCUT (21:38)
[2023-06-23] MEDS: dexAMETHasone sod phosphate 4 MG/ML VIAL 6 MG IVPUSH (21:59)
[2023-06-24 04:00] VITALS: BP 133/69; PULSE 58; RESP 20; TEMP 36.2; O2SAT 97
[2023-06-24 06:57] LABS: B Type Natriuretic Peptide 229 pg/mL (<100)
[2023-06-24 07:26] LABS: Glucose, Whole Blood 177 mg/dL (60-115)
[2023-06-24 07:52] VITALS: BP 160/75; PULSE 60; RESP 20; TEMP 36.3; O2SAT 99
--- NOTE | 2023-06-24 08:22 | MHC.CM.PN ---
Addendum entered by Aniyah Crowder RN 06/24/23 12:49: Per RN patient is tearful and expresses that he is unsure about STR. CM met with patient and at bedside to discuss options. Patient states he was previously admitted to [facility] for 1 hour and had a terrible experience . Would like a referral to [facility]. Addressed all patient concerns and reviewed acute rehab v STR. Current plan remains STR, referral to [facility] as requested. Patient may decide to go home with VNA. CM will continue to follow. Original Note: PT recommending STR. Patient is agreeable to plan and does not have a preference in facility. Referrals placed in [facility]. CM will continue to follow.
[2023-06-24] MEDS: Insulin Lispro 100 UNIT/ML 3 ML VIAL SUBCUT ×4 (08:58→21:59)
[2023-06-24] MEDS: Cholecalciferol (Vitamin D3) 25 MCG TABLET 50 MCG PO (08:58)
[2023-06-24] MEDS: Aspirin Enteric Coated 81 MG TABLET.DR PO (08:59)
[2023-06-24] MEDS: guaiFENesin LA 600 MG TAB.ER.12H PO ×2 (08:59→20:20)
[2023-06-24] MEDS: amLODIPine Besylate 10 MG TABLET PO (08:59)
[2023-06-24] MEDS: Clopidogrel Bisulfate 75 MG TABLET PO (08:59)
[2023-06-24] MEDS: Folic Acid 1 MG TABLET PO (08:59)
[2023-06-24] MEDS: Torsemide 20 MG TABLET 10 MG PO (08:59)
[2023-06-24] MEDS: Metoprolol Tartrate 25 MG TABLET PO ×2 (08:59→20:21)
[2023-06-24] MEDS: 0.9 % Sodium Chloride Flush 3 ML SYRINGE IVFLUSH ×4 (09:00→22:07)
[2023-06-24 11:04] LABS: Glucose, Whole Blood 191 mg/dL (60-115)
[2023-06-24 11:16] VITALS: BP 170/79; PULSE 59; RESP 20; TEMP 36.5; O2SAT 98
--- NOTE | 2023-06-24 13:28 | P.PNIM_ITS ---
Subjective Subjective Date of Service: 06/24/23 Interval History: seen and examined this morning follow up for covid no overnight events feeling better today, has not gotten out of bed Review of Systems Denies chest pain Denies shortness of breath Denies nausea vomiting diarrhea Denies fever chills Review of Systems: Yes all other systems are reviewed and are negative Constitutional Constitutional: Denies chills and Denies fever(s) ENT Ears, Nose, Mouth, and Throat: Denies dizziness Cardiovascular Cardiovascular: Denies chest pain and Denies palpitations Respiratory Respiratory: Reports cough Gastrointestinal Gastrointestinal: Denies abdominal pain Neurologic Neurologic: Denies dizziness Endocrine Endocrine: Denies palpitations Physical Exam 2 Vital Signs: Vital Signs: Last Vital Signs Temp 97.7 F 06/24/23 11:16 Pulse 59 06/24/23 11:16 Resp 20 06/24/23 11:16 BP 170/79 H 06/24/23 11:16 Pulse Ox 98 06/24/23 11:16 O2 Del Method Nasal Cannula 06/24/23 11:16 O2 Flow Rate 2 06/24/23 11:16 BMI result Body Mass Index 45.4 Const: General: cooperative, comfortable, no acute distress, alert and awake Nutritional Appearance: obese Orientation/consciousness: patient oriented x3 Resp: Other: diminished breath sounds, scattered wheeze Effort & Inspection: able to speak in complete sentences, no respiratory distress and no use of accessory muscles Cardio: Rate: regular rate GI: Inspection: No distended and Yes obesity Palpation (GI): Soft to palpation and nontender Neuro: Other: grossly nonfocal General: patient oriented x3 and moves all extremities Extrem: Other: b/l leg edema Objective Data Active Medications Acetaminophen (Acetaminophen 325 Mg Tablet) 650 mg PO Q6H PRN PRN Reason: Pain, Mild (Pain Scale 1-3) Last Admin: 06/23/23 21:36 Dose: 650 mg Documented By: GEOVANNY Albuterol Sulfate (Albuterol Sulfate (0.042%) 1.25 Mg/3 Ml Vial.Neb) 1.25 mg INHALE RQ6H PRN PRN Reason: Shortness of Breath/Wheezing Amlodipine Besylate (Amlodipine Besylate 10 Mg Tablet) 10 mg PO DAILY [facility]; Protocol Last Admin: 06/24/23 08:59 Dose: 10 mg Documented By: RAEANN Aspirin (Aspirin Enteric Coated 81 Mg Tablet.) 81 mg PO DAILY [facility] Last Admin: 06/24/23 08:59 Dose: 81 mg Documented By: RAEANN Atorvastatin Calcium (Atorvastatin Calcium 80 Mg Tablet) 80 mg PO BEDTIME [facility] Last Admin: 06/23/23 21:36 Dose: 80 mg Documented By: GEOVANNY Benzonatate (Benzonatate 100 Mg Capsule) 200 mg PO TID PRN PRN Reason: Cough Clopidogrel Bisulfate (Clopidogrel Bisulfate 75 Mg Tablet) 75 mg PO DAILY [facility] Last Admin: 06/24/23 08:59 Dose: 75 mg Documented By: RAEANN Dexamethasone Sodium Phosphate (Dexamethasone Sod Phosphate 4 Mg/Ml Vial) 6 mg IVPUSH BEDTIME [facility] Last Admin: 06/23/23 21:59 Dose: 6 mg Documented By: GEOVANNY Dextrose (Dextrose 50 % 25 Gm/50 Ml Syringe) 25 gm IVPUSH Q15M PRN; Protocol PRN Reason: per Hypoglycemia Standing Ord. Enoxaparin Sodium (Enoxaparin Sodium 40 Mg/0.4 Ml Syringe) 40 mg SUBCUT Q24H [facility] Last Admin: 06/23/23 21:37 Dose: 40 mg Documented By: GEOVANNY Fenofibrate (Fenofibrate,Micronized 134 Mg Capsule) 134 mg PO BEDTIME [facility] Last Admin: 06/23/23 21:36 Dose: 134 mg Documented By: GEOVANNY Folic Acid (Folic Acid 1 Mg Tablet) 1 mg PO DAILY [facility] Last Admin: 06/24/23 08:59 Dose: 1 mg Documented By: RAEANN Glucose (Glucose Gel 15 Gm Gel..Gram.) 15 gm PO Q15M PRN; Protocol PRN Reason: per Hypoglycemia Standing Ord. Guaifenesin (Guaifenesin La 600 Mg Tab.Er.12h) 600 mg PO BID [facility] Last Admin: 06/24/23 08:59 Dose: 600 mg Documented By: RAEANN Insulin Glargine (Insulin Glargine,Hum.Rec.Anlog 100 Unit/Ml 10 Ml Vial) 26 unit SUBCUT BEDTIME [facility] Last Admin: 06/23/23 21:38 Dose: 26 unit Documented By: GEOVANNY Insulin Human Lispro (Insulin Lispro 100 Unit/Ml 3 Ml Vial) 0 unit SUBCUT QIDACHS [facility]; Protocol Last Admin: 06/24/23 12:20 Dose: 2 unit Documented By: RAEANN Loratadine (Loratadine 10 Mg Tablet) 10 mg PO BEDTIME [facility] Last Admin: 06/23/23 21:36 Dose: 10 mg Documented By: GEOVANNY Lorazepam (Lorazepam 1 Mg Tablet) 1 mg PO BEDTIME PRN PRN Reason: anxiety Last Admin: 06/23/23 21:36 Dose: 1 mg Documented By: GEOVANNY Losartan Potassium (Losartan Potassium 50 Mg Tablet) 100 mg PO BEDTIME [facility]; Protocol Melatonin (Melatonin 3 Mg Tablet) 6 mg PO BEDTIME PRN PRN Reason: Insomnia Last Admin: 06/23/23 21:36 Dose: 6 mg Documented By: GEOVANNY Metoprolol Tartrate (Metoprolol Tartrate 25 Mg Tablet) 25 mg PO BID [facility]; Protocol Last Admin: 06/24/23 08:59 Dose: 25 mg Documented By: RAEANN Morphine Sulfate (Morphine Sulfate 4 Mg/Ml Cartridge) 2 mg IVPUSH Q4H PRN; Protocol PRN Reason: Pain, Severe (Pain Scale 7-10) Ondansetron HCl (Ondansetron Hcl 4 Mg/2 Ml Vial) 4 mg IVPUSH Q8H PRN PRN Reason: Nausea and Vomiting Last Admin: 06/23/23 10:58 Dose: 4 mg Documented By: RAEANN Senna (Sennosides 8.6 Mg Tablet) 17.2 mg PO BEDTIME PRN PRN Reason: Constipation Sodium Chloride (0.9 % Sodium Chloride Flush 3 Ml Syringe) 3 ml IVFLUSH QSHIFT [facility] Last Admin: 06/24/23 09:00 Dose: 3 ml Documented By: RAEANN Sodium Chloride (Sodium Chloride 0.65 % Nasal 44 Ml Sprbtl) 1 spray NOSTRIL-B Q4H PRN PRN Reason: Nasal Congestion Torsemide (Torsemide 20 Mg Tablet) 10 mg PO DAILY [facility]; Protocol Last Admin: 06/24/23 08:59 Dose: 10 mg Documented By: RAEANN Vitamin D (Cholecalciferol (Vitamin D3) 25 Mcg Tablet) 50 mcg PO DAILY [facility] Last Admin: 06/24/23 08:58 Dose: 50 mcg Documented By: RAEANN Labs 06/23/23 06:47 06/23/23 06:47 Labs: Laboratory Results - last 24 hr 06/23/23 06/23/23 06/24/23 16:30 20:30 06:02 Hold Purple Top SEE NOTE POC Glucose 265 H 225 H B-Natriuretic Peptide 229 H 06/24/23 06/24/23 07:19 10:57 Hold Purple Top POC Glucose 177 H 191 H B-Natriuretic Peptide Assessment and Plan (1) COVID-19: Status: Acute (2) Morbid obesity with BMI of 45.0-49.9, adult: Status: Acute Plan 63 year old morbidly obese white male with history of CAD s/p [place], CKD, T2DM and hypertension admitted with acute shortness of breath and hypoxia. Found to be positive for COVID-19 Acute hypoxic respiratory failure Secondary to COVID-19 infection exacerbated by LYNSEY and probably obesity hypoventilation CXR negative continue decadron, prn breathing treatments, cough medication currently on 1-2L, will attempt to wean Type 2 Diabetes Mellitus continue Lantus, SSI follow POCs ADA diet YENNY on Stage 4 CKD creatinine up to 3.2, back down to baseline resume losartan, torsemide follow BMP Hyperkalemia resolved with lokelma Hypertension bp elevated norvasc increased to 10 mg continue metoprolol will increase losartan to 100 mg follow bp HFpEF continue torsemide chronic leg edema will give a dose of lasix and assess for effect keep legs elevated reports surgery to left ankle contributes to edema low albumin likely contributing factor Morbid obesity BMI 45.4 likely contributing to hypoxia, respiratory symptoms minimally ambulatory at baseline weight loss encouraged LYNSEY CPAP Full Code DVT ppx - Lovenox attending - Dr. Wade dispo - PT eval - rec STR Patient requires ongoing hospitalization for IV Decadron to treat hypoxic respiratory failure in the backdrop of COVID 19 infection. Also has an O2 requirement which cannot be met at home as patient previously was not on oxygen Quality Stroke Does the patient have a stroke diagnosis?: No VTE Prior VTE?: No VTE Risk Level:: Medical - moderate - high VTE Device Contraindication: N/A - Device Ordered VTE Drug Contraindication: N/A - Med Ordered
[2023-06-24 15:10] VITALS: BP 169/79; PULSE 61; RESP 20; TEMP 36.3; O2SAT 98
[2023-06-24] MEDS: Furosemide 20 MG/2 ML VIAL IVPUSH (15:11)
[2023-06-24 15:21] VITALS: BP 169/79
[2023-06-24 16:25] LABS: Glucose, Whole Blood 226 mg/dL (60-115)
[2023-06-24 19:45] VITALS: BP 191/78; PULSE 71; RESP 20; TEMP 36.3; O2SAT 99
[2023-06-24] MEDS: dexAMETHasone sod phosphate 4 MG/ML VIAL 6 MG IVPUSH (20:19)
[2023-06-24] MEDS: Losartan Potassium 50 MG TABLET 100 MG PO (20:20)
[2023-06-24] MEDS: Sennosides 8.6 MG TABLET 17.2 MG PO (20:20)
[2023-06-24] MEDS: LORazepam 1 MG TABLET PO (20:20)
[2023-06-24] MEDS: Fenofibrate,Micronized 134 MG CAPSULE PO (20:20)
[2023-06-24] MEDS: Atorvastatin Calcium 80 MG TABLET PO (20:21)
[2023-06-24] MEDS: Loratadine 10 MG TABLET PO (20:21)
[2023-06-24 21:04] LABS: Glucose, Whole Blood 366 mg/dL (60-115)
[2023-06-24] MEDS: Insulin Glargine,Hum.rec.anlog 100 UNIT/ML 10 ML VIAL 26 UNIT SUBCUT (21:59)
[2023-06-24] MEDS: Enoxaparin Sodium 40 MG/0.4 ML SYRINGE SUBCUT (21:59)
[2023-06-25] VITALS (10 sets, daily range): BP systolic 120–182; BP diastolic 60–115; PULSE 56–68; RESP 14–20; TEMP 36.2–36.6; O2SAT 94–99
[2023-06-25 01:37] LABS: Glucose, Whole Blood 275 mg/dL (60-115)
[2023-06-25 08:25] LABS: Glucose, Whole Blood 286 mg/dL (60-115)
[2023-06-25] MEDS: Insulin Lispro 100 UNIT/ML 3 ML VIAL SUBCUT ×4 (08:48→21:16)
[2023-06-25] MEDS: Folic Acid 1 MG TABLET PO (08:49)
[2023-06-25] MEDS: Aspirin Enteric Coated 81 MG TABLET.DR PO (08:49)
[2023-06-25] MEDS: Clopidogrel Bisulfate 75 MG TABLET PO (08:49)
[2023-06-25] MEDS: Cholecalciferol (Vitamin D3) 25 MCG TABLET 50 MCG PO (08:49)
[2023-06-25] MEDS: guaiFENesin LA 600 MG TAB.ER.12H PO ×2 (08:49→21:15)
[2023-06-25] MEDS: amLODIPine Besylate 10 MG TABLET PO (08:49)
[2023-06-25] MEDS: Metoprolol Tartrate 25 MG TABLET PO ×2 (08:49→21:15)
[2023-06-25] MEDS: Torsemide 20 MG TABLET 10 MG PO (08:49)
[2023-06-25 11:14] LABS: Glucose, Whole Blood 248 mg/dL (60-115)
--- NOTE | 2023-06-25 11:43 | HO.PM.IMPN ---
Subjective Subjective Date of Service: 06/25/23 Interval History: RN reports pt more somnolent than earlier, went to see him and states that he didn't sleep all night, he's otherwise, alert, oriented to self place and time, and having normal conversation. Also there is report he has not been using his CPAP Physical Exam Vital Signs: Vital Signs: Last Vital Signs Temp 97.8 F 06/25/23 11:22 Pulse 66 06/25/23 11:22 Resp 20 06/25/23 11:22 BP 159/74 H 06/25/23 11:22 Pulse Ox 95 06/25/23 11:22 O2 Del Method Nasal Cannula 06/25/23 11:22 O2 Flow Rate 2 06/25/23 11:22 BMI result Body Mass Index 45.4 Const: Other: General: AO X 3, no acute distress, obesse Resp: CTA bilateral CVS: S1,S2,RRR GI: +BS, NT, no distention Skin: No rash Neuro: motor grossly intact Psych: appropriate affect Objective Data Active Medications Acetaminophen (Acetaminophen 325 Mg Tablet) 650 mg PO Q6H PRN PRN Reason: Pain, Mild (Pain Scale 1-3) Last Admin: 06/23/23 21:36 Dose: 650 mg Documented By: GEOVANNY Albuterol Sulfate (Albuterol Sulfate (0.042%) 1.25 Mg/3 Ml Vial.Neb) 1.25 mg INHALE RQ6H PRN PRN Reason: Shortness of Breath/Wheezing Amlodipine Besylate (Amlodipine Besylate 10 Mg Tablet) 10 mg PO DAILY [facility]; Protocol Last Admin: 06/25/23 08:49 Dose: 10 mg Documented By: RAEANN Aspirin (Aspirin Enteric Coated 81 Mg Tablet.) 81 mg PO DAILY [facility] Last Admin: 06/25/23 08:49 Dose: 81 mg Documented By: RAEANN Atorvastatin Calcium (Atorvastatin Calcium 80 Mg Tablet) 80 mg PO BEDTIME [facility] Last Admin: 06/24/23 20:21 Dose: 80 mg Documented By: CARRIE Benzonatate (Benzonatate 100 Mg Capsule) 200 mg PO TID PRN PRN Reason: Cough Clopidogrel Bisulfate (Clopidogrel Bisulfate 75 Mg Tablet) 75 mg PO DAILY [facility] Last Admin: 06/25/23 08:49 Dose: 75 mg Documented By: RAEANN Dexamethasone Sodium Phosphate (Dexamethasone Sod Phosphate 4 Mg/Ml Vial) 6 mg IVPUSH BEDTIME [facility] Stop: 06/28/23 21:01 Last Admin: 06/24/23 20:19 Dose: 6 mg Documented By: CARRIE Dextrose (Dextrose 50 % 25 Gm/50 Ml Syringe) 25 gm IVPUSH Q15M PRN; Protocol PRN Reason: per Hypoglycemia Standing Ord. Enoxaparin Sodium (Enoxaparin Sodium 40 Mg/0.4 Ml Syringe) 40 mg SUBCUT Q24H [facility] Last Admin: 06/24/23 21:59 Dose: 40 mg Documented By: CARRIE Fenofibrate (Fenofibrate,Micronized 134 Mg Capsule) 134 mg PO BEDTIME [facility] Last Admin: 06/24/23 20:20 Dose: 134 mg Documented By: CARRIE Folic Acid (Folic Acid 1 Mg Tablet) 1 mg PO DAILY [facility] Last Admin: 06/25/23 08:49 Dose: 1 mg Documented By: RAEANN Glucose (Glucose Gel 15 Gm Gel..Gram.) 15 gm PO Q15M PRN; Protocol PRN Reason: per Hypoglycemia Standing Ord. Guaifenesin (Guaifenesin La 600 Mg Tab.Er.12h) 600 mg PO BID [facility] Last Admin: 06/25/23 08:49 Dose: 600 mg Documented By: RAEANN Insulin Glargine (Insulin Glargine,Hum.Rec.Anlog 100 Unit/Ml 10 Ml Vial) 26 unit SUBCUT BEDTIME [facility] Last Admin: 06/24/23 21:59 Dose: 26 unit Documented By: CARRIE Insulin Human Lispro (Insulin Lispro 100 Unit/Ml 3 Ml Vial) 0 unit SUBCUT QIDACHS [facility]; Protocol Last Admin: 06/25/23 08:48 Dose: 6 unit Documented By: RAEANN Loratadine (Loratadine 10 Mg Tablet) 10 mg PO BEDTIME [facility] Last Admin: 06/24/23 20:21 Dose: 10 mg Documented By: CARRIE Lorazepam (Lorazepam 1 Mg Tablet) 1 mg PO BEDTIME PRN PRN Reason: anxiety Last Admin: 06/24/23 20:20 Dose: 1 mg Documented By: CARRIE Losartan Potassium (Losartan Potassium 50 Mg Tablet) 100 mg PO BEDTIME [facility]; Protocol Last Admin: 06/24/23 20:20 Dose: 100 mg Documented By: CARRIE Melatonin (Melatonin 3 Mg Tablet) 6 mg PO BEDTIME PRN PRN Reason: Insomnia Last Admin: 06/23/23 21:36 Dose: 6 mg Documented By: GEOVANNY Metoprolol Tartrate (Metoprolol Tartrate 25 Mg Tablet) 25 mg PO BID [facility]; Protocol Last Admin: 06/25/23 08:49 Dose: 25 mg Documented By: RAEANN Ondansetron HCl (Ondansetron Hcl 4 Mg/2 Ml Vial) 4 mg IVPUSH Q8H PRN PRN Reason: Nausea and Vomiting Last Admin: 06/23/23 10:58 Dose: 4 mg Documented By: RAEANN Senna (Sennosides 8.6 Mg Tablet) 17.2 mg PO BEDTIME PRN PRN Reason: Constipation Last Admin: 06/24/23 20:20 Dose: 17.2 mg Documented By: CARRIE Sodium Chloride (0.9 % Sodium Chloride Flush 3 Ml Syringe) 3 ml IVFLUSH QSHIFT [facility] Last Admin: 06/24/23 22:07 Dose: 3 ml Documented By: CARRIE Sodium Chloride (Sodium Chloride 0.65 % Nasal 44 Ml Sprbtl) 1 spray NOSTRIL-B Q4H PRN PRN Reason: Nasal Congestion Torsemide (Torsemide 20 Mg Tablet) 10 mg PO DAILY [facility]; Protocol Last Admin: 06/25/23 08:49 Dose: 10 mg Documented By: RAEANN Vitamin D (Cholecalciferol (Vitamin D3) 25 Mcg Tablet) 50 mcg PO DAILY [facility] Last Admin: 06/25/23 08:49 Dose: 50 mcg Documented By: RAEANN Labs 06/23/23 06:47 06/23/23 06:47 Labs: Laboratory Results - last 24 hr 06/24/23 06/24/23 06/25/23 16:20 20:38 00:10 POC Glucose 226 H 366 H* 275 H 06/25/23 06/25/23 08:10 11:10 POC Glucose 286 H 248 H Assessment and Plan (1) COVID-19: Status: Acute (2) Morbid obesity with BMI of 45.0-49.9, adult: Status: Acute Plan 63 year old morbidly obese white male with history of CAD s/p [place], CKD, T2DM and hypertension admitted with acute shortness of breath and hypoxia. Found to be positive for COVID-19 Acute hypoxic respiratory failure Secondary to COVID-19 infection exacerbated by LYNSEY and probably obesity hypoventilation CXR negative continue decadron, prn breathing treatments, cough medication currently on 1-2L. Gettting ABG and if ok, will try off O Type 2 Diabetes Mellitus continue Lantus, SSI follow POCs ADA diet YENNY on Stage 4 CKD, resolved, Cr presently within baseline. Continue Losartan and Torsemide, repeat BMP tomorrow Hyperkalemia resolved with lokelma Hypertension. BP still high but recent med adjustment with Losartan up to 100 and norvasc upt to 10, continue monitoing for now Chronic HFpEF continue torsemide chronic leg edema will give a dose of lasix and assess for effect keep legs elevated reports surgery to left ankle contributes to edema low albumin likely contributing factor Morbid obesity BMI 45.4 likely contributing to hypoxia, respiratory symptoms minimally ambulatory at baseline weight loss encouraged LYNSEY CPAP, encouraged to use Full Code DVT ppx - Lovenox dispo - PT eval - rec STR Patient requires ongoing hospitalization for IV Decadron to treat hypoxic respiratory failure in the backdrop of COVID 19 infection. Also has an O2 requirement which cannot be met at home as patient previously was not on oxygen Quality Stroke Does the patient have a stroke diagnosis?: No VTE Prior VTE?: No VTE Risk Level:: Medical - moderate - high VTE Device Contraindication: N/A - Device Ordered VTE Drug Contraindication: N/A - Med Ordered
[2023-06-25 16:56] LABS: Glucose, Whole Blood 268 mg/dL (60-115)
[2023-06-25] MEDS: 0.9 % Sodium Chloride Flush 3 ML SYRINGE IVFLUSH ×2 (17:12→21:17)
[2023-06-25 20:53] LABS: Glucose, Whole Blood 257 mg/dL (60-115)
[2023-06-25] MEDS: Fenofibrate,Micronized 134 MG CAPSULE PO (21:14)
[2023-06-25] MEDS: dexAMETHasone sod phosphate 4 MG/ML VIAL 6 MG IVPUSH (21:14)
[2023-06-25] MEDS: Atorvastatin Calcium 80 MG TABLET PO (21:15)
[2023-06-25] MEDS: Insulin Glargine,Hum.rec.anlog 100 UNIT/ML 10 ML VIAL 26 UNIT SUBCUT (21:15)
[2023-06-25] MEDS: Loratadine 10 MG TABLET PO (21:15)
[2023-06-25] MEDS: Losartan Potassium 50 MG TABLET 100 MG PO (21:15)
[2023-06-25] MEDS: Enoxaparin Sodium 40 MG/0.4 ML SYRINGE SUBCUT (21:16)
[2023-06-25] MEDS: Melatonin 3 MG TABLET 6 MG PO (21:19)
[2023-06-25] MEDS: LORazepam 1 MG TABLET PO (21:19)
[2023-06-26] VITALS (7 sets, daily range): BP systolic 130–186; BP diastolic 72–85; PULSE 54–72; RESP 13–20; TEMP 36.3–36.9; O2SAT 95–98
[2023-06-26 08:24] LABS: Glucose, Whole Blood 228 mg/dL (60-115)
[2023-06-26] MEDS: guaiFENesin LA 600 MG TAB.ER.12H PO ×2 (09:13→21:57)
[2023-06-26] MEDS: Folic Acid 1 MG TABLET PO (09:13)
[2023-06-26] MEDS: Aspirin Enteric Coated 81 MG TABLET.DR PO (09:13)
[2023-06-26] MEDS: Torsemide 20 MG TABLET 10 MG PO (09:13)
[2023-06-26] MEDS: 0.9 % Sodium Chloride Flush 3 ML SYRINGE IVFLUSH ×3 (09:14→21:59)
[2023-06-26] MEDS: amLODIPine Besylate 10 MG TABLET PO (09:14)
[2023-06-26] MEDS: Metoprolol Tartrate 25 MG TABLET PO ×2 (09:14→21:58)
[2023-06-26] MEDS: Insulin Lispro 100 UNIT/ML 3 ML VIAL SUBCUT ×4 (09:14→21:58)
[2023-06-26] MEDS: Clopidogrel Bisulfate 75 MG TABLET PO (09:14)
[2023-06-26] MEDS: Cholecalciferol (Vitamin D3) 25 MCG TABLET 50 MCG PO (09:17)
[2023-06-26 12:03] LABS: Glucose, Whole Blood 226 mg/dL (60-115)
--- NOTE | 2023-06-26 12:45 | HO.PM.IMPN ---
Subjective Subjective Date of Service: 06/26/23 Interval History: Patient is doing really well today, he selept well, doesn't have any issue, no hypoxia Physical Exam Vital Signs: Vital Signs: Last Vital Signs Temp 97.3 F 06/26/23 11:38 Pulse 65 06/26/23 11:38 Resp 14 06/26/23 11:38 BP 175/80 H 06/26/23 11:38 Pulse Ox 98 06/26/23 11:38 O2 Del Method Nasal Cannula 06/26/23 11:38 O2 Flow Rate 2 06/26/23 11:38 BMI result Body Mass Index 45.4 Const: Other: General: AO X 3, no acute distress, obesse Resp: CTA bilateral CVS: S1,S2,RRR, some leg edema geoffrey GI: +BS, NT, no distention Skin: No rash Neuro: motor grossly intact Psych: appropriate affect Objective Data Active Medications Acetaminophen (Acetaminophen 325 Mg Tablet) 650 mg PO Q6H PRN PRN Reason: Pain, Mild (Pain Scale 1-3) Last Admin: 06/23/23 21:36 Dose: 650 mg Documented By: GEOVANNY Albuterol Sulfate (Albuterol Sulfate (0.042%) 1.25 Mg/3 Ml Vial.Neb) 1.25 mg INHALE RQ6H PRN PRN Reason: Shortness of Breath/Wheezing Amlodipine Besylate (Amlodipine Besylate 10 Mg Tablet) 10 mg PO DAILY [facility]; Protocol Last Admin: 06/26/23 09:14 Dose: 10 mg Documented By: ROSA M Aspirin (Aspirin Enteric Coated 81 Mg Tablet.) 81 mg PO DAILY [facility] Last Admin: 06/26/23 09:13 Dose: 81 mg Documented By: ROSA M Atorvastatin Calcium (Atorvastatin Calcium 80 Mg Tablet) 80 mg PO BEDTIME [facility] Last Admin: 06/25/23 21:15 Dose: 80 mg Documented By: LENALAMC Benzonatate (Benzonatate 100 Mg Capsule) 200 mg PO TID PRN PRN Reason: Cough Clopidogrel Bisulfate (Clopidogrel Bisulfate 75 Mg Tablet) 75 mg PO DAILY [facility] Last Admin: 06/26/23 09:14 Dose: 75 mg Documented By: ROSA M Dexamethasone Sodium Phosphate (Dexamethasone Sod Phosphate 4 Mg/Ml Vial) 6 mg IVPUSH BEDTIME [facility] Stop: 06/28/23 21:01 Last Admin: 06/25/23 21:14 Dose: 6 mg Documented By: CODY Dextrose (Dextrose 50 % 25 Gm/50 Ml Syringe) 25 gm IVPUSH Q15M PRN; Protocol PRN Reason: per Hypoglycemia Standing Ord. Enoxaparin Sodium (Enoxaparin Sodium 40 Mg/0.4 Ml Syringe) 40 mg SUBCUT Q24H [facility] Last Admin: 06/25/23 21:16 Dose: 40 mg Documented By: CODY Fenofibrate (Fenofibrate,Micronized 134 Mg Capsule) 134 mg PO BEDTIME [facility] Last Admin: 06/25/23 21:14 Dose: 134 mg Documented By: CODY Folic Acid (Folic Acid 1 Mg Tablet) 1 mg PO DAILY [facility] Last Admin: 06/26/23 09:13 Dose: 1 mg Documented By: ROSA M Glucose (Glucose Gel 15 Gm Gel..Gram.) 15 gm PO Q15M PRN; Protocol PRN Reason: per Hypoglycemia Standing Ord. Guaifenesin (Guaifenesin La 600 Mg Tab.Er.12h) 600 mg PO BID [facility] Last Admin: 06/26/23 09:13 Dose: 600 mg Documented By: ROSA M Insulin Glargine (Insulin Glargine,Hum.Rec.Anlog 100 Unit/Ml 10 Ml Vial) 26 unit SUBCUT BEDTIME [facility] Last Admin: 06/25/23 21:15 Dose: 26 unit Documented By: CODY Insulin Human Lispro (Insulin Lispro 100 Unit/Ml 3 Ml Vial) 0 unit SUBCUT QIDACHS [facility]; Protocol Last Admin: 06/26/23 12:43 Dose: 4 unit Documented By: ROSA M Loratadine (Loratadine 10 Mg Tablet) 10 mg PO BEDTIME [facility] Last Admin: 06/25/23 21:15 Dose: 10 mg Documented By: CODY Lorazepam (Lorazepam 1 Mg Tablet) 1 mg PO BEDTIME PRN PRN Reason: anxiety Last Admin: 06/25/23 21:19 Dose: 1 mg Documented By: CODY Losartan Potassium (Losartan Potassium 50 Mg Tablet) 100 mg PO BEDTIME [facility]; Protocol Last Admin: 06/25/23 21:15 Dose: 100 mg Documented By: CODY Melatonin (Melatonin 3 Mg Tablet) 6 mg PO BEDTIME PRN PRN Reason: Insomnia Last Admin: 06/25/23 21:19 Dose: 6 mg Documented By: CODY Metoprolol Tartrate (Metoprolol Tartrate 25 Mg Tablet) 25 mg PO BID [facility]; Protocol Last Admin: 06/26/23 09:14 Dose: 25 mg Documented By: ROSA M Ondansetron HCl (Ondansetron Hcl 4 Mg/2 Ml Vial) 4 mg IVPUSH Q8H PRN PRN Reason: Nausea and Vomiting Last Admin: 06/23/23 10:58 Dose: 4 mg Documented By: RAEANN Senna (Sennosides 8.6 Mg Tablet) 17.2 mg PO BEDTIME PRN PRN Reason: Constipation Last Admin: 06/24/23 20:20 Dose: 17.2 mg Documented By: CARRIE Sodium Chloride (0.9 % Sodium Chloride Flush 3 Ml Syringe) [facility] Last Admin: 06/26/23 09:14 Dose: 3 ml Documented By: ROSA M Sodium Chloride (Sodium Chloride 0.65 % Nasal 44 Ml Sprbtl) 1 spray NOSTRIL-B Q4H PRN PRN Reason: Nasal Congestion Torsemide (Torsemide 20 Mg Tablet) 10 mg PO DAILY [facility]; Protocol Last Admin: 06/26/23 09:13 Dose: 10 mg Documented By: ROSA M Vitamin D (Cholecalciferol (Vitamin D3) 25 Mcg Tablet) 50 mcg PO DAILY [facility] Last Admin: 06/26/23 09:17 Dose: 50 mcg Documented By: ROSA M Labs 06/23/23 06:47 06/23/23 06:47 Labs: Laboratory Results - last 24 hr 06/25/23 06/25/23 06/26/23 16:43 20:43 07:43 POC Glucose 268 H 257 H 228 H 06/26/23 11:41 POC Glucose 226 H Assessment and Plan (1) COVID-19: Status: Acute (2) Morbid obesity with BMI of 45.0-49.9, adult: Status: Acute Plan 63 year old morbidly obese white male with history of CAD s/p [place], CKD, T2DM and hypertension admitted with acute shortness of breath and hypoxia. Found to be positive for COVID-19 Acute hypoxic respiratory failure Secondary to COVID-19 infection exacerbated by LYNSEY and probably obesity hypoventilation CXR negative continue decadron for 7 days or until hypoxi resolved,, prn breathing treatments, cough medication currently on 1-2L. Gettting ABG and if ok, will try off Type 2 Diabetes Mellitus continue Lantus, SSI follow POCs ADA diet YENNY on Stage 4 CKD, resolved, Cr presently within baseline. Continue Losartan and Torsemide, repeat BMP tomorrow Hyperkalemia resolved with lokelma Hypertension. BP still high but recent med adjustment with Losartan up to 100 and norvasc upt to 10, continue monitoing for now Chronic HFpEF continue torsemide chronic leg edema will give a dose of lasix and assess for effect keep legs elevated reports surgery to left ankle contributes to edema low albumin likely contributing factor Morbid obesity BMI 45.4 likely contributing to hypoxia, respiratory symptoms minimally ambulatory at baseline weight loss encouraged LYNSEY CPAP, encouraged to use Full Code DVT ppx - Lovenox dispo - PT eval - rec STR Patient requires ongoing hospitalization for IV Decadron to treat hypoxic respiratory failure in the backdrop of COVID 19 infection. Also has an O2 requirement which cannot be met at home as patient previously was not on oxygen Quality Stroke Does the patient have a stroke diagnosis?: No VTE Prior VTE?: No VTE Risk Level:: Medical - moderate - high VTE Device Contraindication: N/A - Device Ordered VTE Drug Contraindication: N/A - Med Ordered
[2023-06-26 16:26] LABS: Glucose, Whole Blood 230 mg/dL (60-115)
[2023-06-26 21:41] LABS: Glucose, Whole Blood 312 mg/dL (60-115)
[2023-06-26] MEDS: LORazepam 1 MG TABLET PO (21:57)
[2023-06-26] MEDS: Fenofibrate,Micronized 134 MG CAPSULE PO (21:57)
[2023-06-26] MEDS: Atorvastatin Calcium 80 MG TABLET PO (21:57)
[2023-06-26] MEDS: Losartan Potassium 50 MG TABLET 100 MG PO (21:57)
[2023-06-26] MEDS: Melatonin 3 MG TABLET 6 MG PO (21:57)
[2023-06-26] MEDS: dexAMETHasone sod phosphate 4 MG/ML VIAL 6 MG IVPUSH (21:58)
[2023-06-26] MEDS: Insulin Glargine,Hum.rec.anlog 100 UNIT/ML 10 ML VIAL 26 UNIT SUBCUT (21:59)
[2023-06-26] MEDS: Enoxaparin Sodium 40 MG/0.4 ML SYRINGE SUBCUT (22:03)
[2023-06-26] MEDS: Loratadine 10 MG TABLET PO (22:03)
[2023-06-27] VITALS (13 sets, daily range): BP systolic 164–198; BP diastolic 68–91; PULSE 57–72; RESP 13–20; TEMP 35.9–36.9; O2SAT 93–99
[2023-06-27 08:31] LABS: Glucose, Whole Blood 205 mg/dL (60-115)
[2023-06-27] MEDS: guaiFENesin LA 600 MG TAB.ER.12H PO ×2 (09:20→20:50)
[2023-06-27] MEDS: Clopidogrel Bisulfate 75 MG TABLET PO (09:20)
[2023-06-27] MEDS: Folic Acid 1 MG TABLET PO (09:20)
[2023-06-27] MEDS: Cholecalciferol (Vitamin D3) 25 MCG TABLET 50 MCG PO (09:20)
[2023-06-27] MEDS: Insulin Lispro 100 UNIT/ML 3 ML VIAL SUBCUT ×4 (09:21→20:51)
[2023-06-27] MEDS: Aspirin Enteric Coated 81 MG TABLET.DR PO (09:21)
[2023-06-27] MEDS: 0.9 % Sodium Chloride Flush 3 ML SYRINGE IVFLUSH ×3 (09:21→20:52)
[2023-06-27] MEDS: Metoprolol Tartrate 25 MG TABLET PO ×2 (09:21→20:50)
[2023-06-27] MEDS: Torsemide 20 MG TABLET 10 MG PO (09:21)
[2023-06-27] MEDS: amLODIPine Besylate 10 MG TABLET PO (09:21)
--- NOTE | 2023-06-27 12:28 | HO.PM.IMPN ---
Subjective Subjective Date of Service: 06/27/23 Interval History: Feels better, slept well, no sob, off oxygen, BP has been trending up Physical Exam Vital Signs: Vital Signs: Last Vital Signs Temp 97.4 F 06/27/23 12:00 Pulse 65 06/27/23 12:00 Resp 13 06/27/23 12:00 BP 196/90 H 06/27/23 12:01 Pulse Ox 99 06/27/23 12:00 O2 Del Method Room Air 06/27/23 12:00 O2 Flow Rate 2 06/27/23 04:00 BMI result Body Mass Index 45.4 Const: Other: General: AO X 3, no acute distress, obesse Resp: CTA bilateral CVS: S1,S2,RRR, some 2+ leg edema geoffrey GI: +BS, NT, no distention Skin: No rash Neuro: motor grossly intact Psych: appropriate affect Objective Data Active Medications Acetaminophen (Acetaminophen 325 Mg Tablet) 650 mg PO Q6H PRN PRN Reason: Pain, Mild (Pain Scale 1-3) Last Admin: 06/23/23 21:36 Dose: 650 mg Documented By: GEOVANNY Albuterol Sulfate (Albuterol Sulfate (0.042%) 1.25 Mg/3 Ml Vial.Neb) 1.25 mg INHALE RQ6H PRN PRN Reason: Shortness of Breath/Wheezing Amlodipine Besylate (Amlodipine Besylate 10 Mg Tablet) 10 mg PO DAILY [facility]; Protocol Last Admin: 06/27/23 09:21 Dose: 10 mg Documented By: TASHA Aspirin (Aspirin Enteric Coated 81 Mg Tablet.) 81 mg PO DAILY [facility] Last Admin: 06/27/23 09:21 Dose: 81 mg Documented By: ATSHA Atorvastatin Calcium (Atorvastatin Calcium 80 Mg Tablet) 80 mg PO BEDTIME [facility] Last Admin: 06/26/23 21:57 Dose: 80 mg Documented By: LAFLAMC Benzonatate (Benzonatate 100 Mg Capsule) 200 mg PO TID PRN PRN Reason: Cough Clopidogrel Bisulfate (Clopidogrel Bisulfate 75 Mg Tablet) 75 mg PO DAILY [facility] Last Admin: 06/27/23 09:20 Dose: 75 mg Documented By: TASHA Dexamethasone Sodium Phosphate (Dexamethasone Sod Phosphate 4 Mg/Ml Vial) 6 mg IVPUSH BEDTIME [facility] Stop: 06/28/23 21:01 Last Admin: 06/26/23 21:58 Dose: 6 mg Documented By: CODY Dextrose (Dextrose 50 % 25 Gm/50 Ml Syringe) 25 gm IVPUSH Q15M PRN; Protocol PRN Reason: per Hypoglycemia Standing Ord. Enoxaparin Sodium (Enoxaparin Sodium 40 Mg/0.4 Ml Syringe) 40 mg SUBCUT Q24H [facility] Last Admin: 06/26/23 22:03 Dose: 40 mg Documented By: CODY Fenofibrate (Fenofibrate,Micronized 134 Mg Capsule) 134 mg PO BEDTIME [facility] Last Admin: 06/26/23 21:57 Dose: 134 mg Documented By: CODY Folic Acid (Folic Acid 1 Mg Tablet) 1 mg PO DAILY [facility] Last Admin: 06/27/23 09:20 Dose: 1 mg Documented By: TASHA Glucose (Glucose Gel 15 Gm Gel..Gram.) 15 gm PO Q15M PRN; Protocol PRN Reason: per Hypoglycemia Standing Ord. Guaifenesin (Guaifenesin La 600 Mg Tab.Er.12h) 600 mg PO BID [facility] Last Admin: 06/27/23 09:20 Dose: 600 mg Documented By: TASHA Insulin Glargine (Insulin Glargine,Hum.Rec.Anlog 100 Unit/Ml 10 Ml Vial) 26 unit SUBCUT BEDTIME [facility] Last Admin: 06/26/23 21:59 Dose: 26 unit Documented By: CODY Insulin Human Lispro (Insulin Lispro 100 Unit/Ml 3 Ml Vial) 0 unit SUBCUT QIDACHS [facility]; Protocol Last Admin: 06/27/23 09:21 Dose: 4 unit Documented By: TASHA Loratadine (Loratadine 10 Mg Tablet) 10 mg PO BEDTIME [facility] Last Admin: 06/26/23 22:03 Dose: 10 mg Documented By: CODY Lorazepam (Lorazepam 1 Mg Tablet) 1 mg PO BEDTIME PRN PRN Reason: anxiety Last Admin: 06/26/23 21:57 Dose: 1 mg Documented By: CODY Losartan Potassium (Losartan Potassium 50 Mg Tablet) 100 mg PO BEDTIME [facility]; Protocol Last Admin: 06/26/23 21:57 Dose: 100 mg Documented By: CODY Melatonin (Melatonin 3 Mg Tablet) 6 mg PO BEDTIME PRN PRN Reason: Insomnia Last Admin: 06/26/23 21:57 Dose: 6 mg Documented By: CODY Metoprolol Tartrate (Metoprolol Tartrate 25 Mg Tablet) 25 mg PO BID [facility]; Protocol Last Admin: 06/27/23 09:21 Dose: 25 mg Documented By: TASHA Ondansetron HCl (Ondansetron Hcl 4 Mg/2 Ml Vial) 4 mg IVPUSH Q8H PRN PRN Reason: Nausea and Vomiting Last Admin: 06/23/23 10:58 Dose: 4 mg Documented By: KINGDAKOTAH Senna (Sennosides 8.6 Mg Tablet) 17.2 mg PO BEDTIME PRN PRN Reason: Constipation Last Admin: 06/24/23 20:20 Dose: 17.2 mg Documented By: CARRIE Sodium Chloride (0.9 % Sodium Chloride Flush 3 Ml Syringe) [facility] Last Admin: 06/27/23 09:21 Dose: 3 ml Documented By: TASHA Sodium Chloride (Sodium Chloride 0.65 % Nasal 44 Ml Sprbtl) 1 spray NOSTRIL-B Q4H PRN PRN Reason: Nasal Congestion Torsemide (Torsemide 20 Mg Tablet) 10 mg PO DAILY [facility]; Protocol Last Admin: 06/27/23 09:21 Dose: 10 mg Documented By: TASHA Vitamin D (Cholecalciferol (Vitamin D3) 25 Mcg Tablet) 50 mcg PO DAILY [facility] Last Admin: 06/27/23 09:20 Dose: 50 mcg Documented By: TASHA Labs 06/23/23 06:47 06/23/23 06:47 Labs: Laboratory Results - last 24 hr 06/26/23 06/26/23 06/27/23 15:31 21:36 08:13 POC Glucose 230 H 312 H 205 H 06/27/23 12:03 POC Glucose 235 H Assessment and Plan (1) COVID-19: Status: Acute (2) Morbid obesity with BMI of 45.0-49.9, adult: Status: Acute Plan 63 year old morbidly obese white male with history of CAD s/p [place], CKD, T2DM and hypertension admitted with acute shortness of breath and hypoxia. Found to be positive for COVID-19 Acute hypoxic respiratory failure, resolved Secondary to COVID-19 infection exacerbated by LYNSEY and probably obesity hypoventilation continue decadron for 7 days or until hypoxi resolved,, prn breathing treatments, cough medication currently on 1-2L. Gettting ABG and if ok, will try off Type 2 Diabetes Mellitus continue Lantus, SSI follow POCs ADA diet YENNY on Stage 4 CKD, resolved, Cr presently within baseline. Continue Losartan and Torsemide, repeat BMP tomorrow Hyperkalemia resolved with lokelma Hypertension. BP still high but recent med adjustment with Losartan up to 100 and norvasc upt to 10, continue monitoing for now, adding Hydralazine 20 tid Chronic HFpEF continue torsemide chronic leg edema will give a dose of lasix and assess for effect keep legs elevated reports surgery to left ankle contributes to edema low albumin likely contributing factor Morbid obesity BMI 45.4 likely contributing to hypoxia, respiratory symptoms minimally ambulatory at baseline weight loss encouraged LYNSEY CPAP, encouraged to use Full Code DVT ppx - Lovenox dispo - PT eval - rec STR Patient requires ongoing hospitalization for IV Decadron to treat hypoxic respiratory failure in the backdrop of COVID 19 infection. Awaiting SNF dispo Can dc isolation as symptoms started at least 3 days prior to hopsitalization Quality Stroke Does the patient have a stroke diagnosis?: No VTE Prior VTE?: No VTE Risk Level:: Medical - moderate - high VTE Device Contraindication: N/A - Device Ordered VTE Drug Contraindication: N/A - Med Ordered
--- NOTE | 2023-06-27 12:57 | MHC.CM.PN ---
Pt has been medically cleared for DC, he will go home with home PT from [facility]. His will transport him home.
--- NOTE | 2023-06-27 14:31 | MHC.CM.PN ---
home care services to be provided by [facility].
--- NOTE | 2023-06-27 15:22 | PM.DS ---
DS: Providers Provider Date of Service: 06/29/23 Date of admission: 06/19/23 21:55 Primary care physician: Alli Kelly III, MD DS: Diagnosis Discharge Diagnosis (1) COVID-19: Status: Acute (2) Morbid obesity with BMI of 45.0-49.9, adult: Status: Acute DS: Summary Hospital Course Hospital Course: admission HPI ttending physician on admission: Pascual Burk Chief Complaint: Cough, congestion and shortness of breath since yesterday Patient is a 63 year old morbidly obese white male with history of CAD s/p [place], T2DM and hypertension who presents to the ED complaining of worsening cough, chest congestion and shortness of breath since yesterday. This is in the setting of contact with individual () who tested positive for COVID-19 5 days ago. He reports associated subjective fevers and chills. HE enies any associated chest pain. He did a home test for COVID-19 that was negative. Initial evaluation in the emergency room was significant for finding of COVID-19 PCR positive test and hypoxemia with oxygen saturation dropping to 88% on room air. Hospitalist: Patient was admited and treated for acute hypoxic respiratory failure due to covid 19, in setting of obesity and hypoventilation due to LYNSEY. Patient was treated supportively with oxygen, IV steroid, breathing treatment as needed. He has improved over the course of treatment, he has succesfully weaned of oxgen and will complete 7 days of decadrone. Type 2 Diabetes Mellitus--Resume home regimen YENNY on Stage 4 CKD, resolved, Cr presently within baseline. Hyperkalemia, likely from losartan which has been stopped Hypertension. Has been very high so Losartan was increased to 100 mg, Norvasc increased to 10 mg and continued on metoprol, but he continued to have high blood pressure and so Hydralazine was added and adjusted to 30 mg tid, he will be discharged with hydralazine 25 tid and to stop losartan and continue other mentioned medication Chronic HFpEF continue torsemide chronic leg edema will give a dose of lasix and assess for effect keep legs elevated reports surgery to left ankle contributes to edema low albumin likely contributing factor Morbid obesity BMI 45.4 likely contributing to hypoxia, respiratory symptoms minimally ambulatory at baseline weight loss encouraged LYNSEY CPAP, encouraged to use home with vna Time Attestation Discharge coordination time: Greater than 30 minutes Quality: Safe Use of Opioids Does Pt have an Active Cancer Diagnosis on the Problem List?: No Quality: Stroke Does the patient have a stroke diagnosis?: No Physical Exam Vital Signs: Vital Signs: Last Vital Signs Temp 97.4 F 06/27/23 12:00 Pulse 65 06/27/23 12:00 Resp 13 06/27/23 12:00 BP 170/76 H 06/27/23 13:52 Pulse Ox 99 06/27/23 12:00 O2 Del Method Room Air 06/27/23 12:00 O2 Flow Rate 2 06/27/23 04:00 BMI result Body Mass Index 45.4 DS: Data Data Completed and Pending Labs on day of discharge: Laboratory Results - last 24 hr 06/26/23 06/26/23 06/27/23 15:31 21:36 08:13 POC Glucose 230 H 312 H 205 H 06/27/23 12:03 POC Glucose 235 H Discharge Plan Discharge Anticipated Discharge Date/Time: 06/29/23 12:03 Patient Disposition: Home Health Service Discharge Diagnosis: Acute hypoxic respiratory failure due to covid 19 Referrals: [facility] [Outside] - 3-5 Days (RESUMPTION OF SERVICES) Alli Kelly III, MD [Primary Care Provider] - 1 Week Discharge Medications: New amlodipine 10 mg Tablet 10 mg PO DAILY Qty: 30 0RF Protocol: Hold for SBP< HOLD for SBP < : 90 hydralazine 25 mg tablet 25 mg PO TID Qty: 90 0RF Continued sildenafil 25 mg tablet 25 mg PO DAILY PRN (Reason: Sexual Activity) fenofibrate 120 mg tablet 1 tab PO BEDTIME cholecalciferol (vitamin D3) 50 mcg (2,000 unit) Tablet 50 mcg PO DAILY atorvastatin 80 mg Tablet 80 mg PO BEDTIME Qty: 30 0RF clopidogrel 75 mg Tablet 75 mg PO DAILY Qty: 30 0RF aspirin 81 mg Tablet,Delayed Release (Dr/Ec) 81 mg PO DAILY Qty: 30 0RF lorazepam [Ativan] 1 mg tablet 1 mg PO BEDTIME PRN (Reason: anxiety) Qty: 14 0RF metoprolol tartrate 25 mg Tablet 25 mg PO BID prednisolone acetate 1 % Drops,Suspension 1 drp OPHTHALMIC (EYE) TID insulin lispro [Humalog KwikPen Insulin] 100 unit/mL Insulin Pen 8 - 12 unit SUBCUT TIDAC torsemide 10 mg Tablet 10 mg PO DAILY Ozempic 0.25 mg or 0.5 mg (2 mg/3 mL) Pen Injector 0.25 mg SUBCUT VELÁSQUEZ@0900 Rx Instructions: for 4 weeks folic acid 1 mg Tablet 1 mg PO DAILY insulin glargine [Lantus Solostar U-100 Insulin] 100 unit/mL (3 mL) insulin pen 26 unit subcut BEDTIME cetirizine 10 mg Tablet 10 mg PO BEDTIME Discontinued amlodipine 5 mg Tablet 5 mg PO DAILY Qty: 30 0RF Protocol: Hold for SBP< HOLD for SBP < : 90 losartan 50 mg tablet 50 mg PO BEDTIME Protocol: Hold for SBP< HOLD for SBP < : 90 Discharge Orders: Discharge Order (Routine); Ordered 06/29/23 Ordered By: Pillo Malcolm Diet: Diabetic diet Activity on Discharge: As tolerated Stand Alone Forms: Patient Portal Discharge page Care Plan Goals: Full recovery fom covid with acute hypoxic respiratory failure Health Concerns: covid 19 acute respriatory failure ckd 4 uncontrolled HTN Plan of Treatment: Take your blood pressure medication as recommended Norvasc 10 mg daily Metoprolol 25 mg twice daily Losartan stopped due to high potassium level Hydralazine 25 mg 3 times Follow up with your doctor in a week to 2 Assessment: See above
[2023-06-27 16:27] LABS: Anion Gap 14 (12-20); Blood Urea Nitrogen 70 mg/dL (9-16); Calcium 8.7 mg/dL (8.4-10.2); Carbon Dioxide 24 mmol/L (22-29); Chloride 110 mmol/L (96-108); Estimated Glomerular Filt Rate 27; Glucose Random 277 mg/dL (60-115); Potassium 5.9 mmol/L (3.3-5.1); Sodium 142 mmol/L (135-145)
[2023-06-27] MEDS: Losartan Potassium 50 MG TABLET 100 MG PO (20:50)
[2023-06-27] MEDS: Atorvastatin Calcium 80 MG TABLET PO (20:50)
[2023-06-27] MEDS: Loratadine 10 MG TABLET PO (20:50)
[2023-06-27] MEDS: Fenofibrate,Micronized 134 MG CAPSULE PO (20:50)
[2023-06-27] MEDS: dexAMETHasone sod phosphate 4 MG/ML VIAL 6 MG IVPUSH (20:51)
[2023-06-27] MEDS: Insulin Glargine,Hum.rec.anlog 100 UNIT/ML 10 ML VIAL 26 UNIT SUBCUT (20:52)
[2023-06-27] MEDS: Melatonin 3 MG TABLET 6 MG PO (20:54)
[2023-06-27] MEDS: LORazepam 1 MG TABLET PO (20:54)
[2023-06-27] MEDS: Enoxaparin Sodium 40 MG/0.4 ML SYRINGE SUBCUT (21:01)
[2023-06-28 03:39] VITALS: PULSE 63; RESP 20; TEMP 36.2; O2SAT 98
[2023-06-28 03:47] VITALS: BP 164/72
[2023-06-28 08:00] VITALS: BP 162/72; PULSE 63; RESP 18; TEMP 36.3; O2SAT 96
[2023-06-28] MEDS: Aspirin Enteric Coated 81 MG TABLET.DR PO (09:02)
[2023-06-28] MEDS: amLODIPine Besylate 10 MG TABLET PO (09:02)
[2023-06-28] MEDS: Torsemide 20 MG TABLET 10 MG PO (09:02)
[2023-06-28] MEDS: Folic Acid 1 MG TABLET PO (09:02)
[2023-06-28] MEDS: Metoprolol Tartrate 25 MG TABLET PO (09:02)
[2023-06-28] MEDS: Insulin Lispro 100 UNIT/ML 3 ML VIAL SUBCUT ×4 (09:03→20:52)
[2023-06-28] MEDS: 0.9 % Sodium Chloride Flush 3 ML SYRINGE IVFLUSH ×3 (09:03→23:35)
[2023-06-28] MEDS: guaiFENesin LA 600 MG TAB.ER.12H PO ×2 (09:03→20:54)
[2023-06-28] MEDS: Cholecalciferol (Vitamin D3) 25 MCG TABLET 50 MCG PO (09:25)
[2023-06-28 11:50] VITALS: BP 193/89; PULSE 69; RESP 18; TEMP 36.9; O2SAT 98
--- NOTE | 2023-06-28 13:26 | HO.PM.IMPN ---
Subjective Subjective Date of Service: 06/28/23 Interval History: Has no respiratory difficulty, but blood pressure reamins very high despite med adjustement and potassium level high, and therefore requesting nephrology assessment Physical Exam Vital Signs: Vital Signs: Last Vital Signs Temp 98.4 F 06/28/23 11:50 Pulse 69 06/28/23 11:50 Resp 18 06/28/23 11:50 BP 193/89 H 06/28/23 11:50 Pulse Ox 98 06/28/23 11:50 O2 Del Method Room Air 06/28/23 11:50 O2 Flow Rate 96 06/28/23 08:00 BMI result Body Mass Index 45.4 Const: Other: General: AO X 3, no acute distress, obesse Resp: CTA bilateral CVS: S1,S2,RRR, some 2+ leg edema geoffrey GI: +BS, NT, no distention Skin: No rash Neuro: motor grossly intact Psych: appropriate affect Objective Data Active Medications Acetaminophen (Acetaminophen 325 Mg Tablet) 650 mg PO Q6H PRN PRN Reason: Pain, Mild (Pain Scale 1-3) Last Admin: 06/23/23 21:36 Dose: 650 mg Documented By: GEOVANNY Albuterol Sulfate (Albuterol Sulfate (0.042%) 1.25 Mg/3 Ml Vial.Neb) 1.25 mg INHALE RQ6H PRN PRN Reason: Shortness of Breath/Wheezing Amlodipine Besylate (Amlodipine Besylate 10 Mg Tablet) 10 mg PO DAILY [facility]; Protocol Last Admin: 06/28/23 09:02 Dose: 10 mg Documented By: TASHA Aspirin (Aspirin Enteric Coated 81 Mg Tablet.) 81 mg PO DAILY [facility] Last Admin: 06/28/23 09:02 Dose: 81 mg Documented By: TASHA Atorvastatin Calcium (Atorvastatin Calcium 80 Mg Tablet) 80 mg PO BEDTIME [facility] Last Admin: 06/27/23 20:50 Dose: 80 mg Documented By: FREDIS Benzonatate (Benzonatate 100 Mg Capsule) 200 mg PO TID PRN PRN Reason: Cough Clopidogrel Bisulfate (Clopidogrel Bisulfate 75 Mg Tablet) 75 mg PO DAILY [facility] Last Admin: 06/28/23 09:02 Dose: 75 mg Documented By: TASHA Dexamethasone Sodium Phosphate (Dexamethasone Sod Phosphate 4 Mg/Ml Vial) 6 mg IVPUSH BEDTIME [facility] Stop: 06/28/23 21:01 Last Admin: 06/27/23 20:51 Dose: 6 mg Documented By: FREDIS Dextrose (Dextrose 50 % 25 Gm/50 Ml Syringe) 25 gm IVPUSH Q15M PRN; Protocol PRN Reason: per Hypoglycemia Standing Ord. Enoxaparin Sodium (Enoxaparin Sodium 40 Mg/0.4 Ml Syringe) 40 mg SUBCUT Q24H [facility] Last Admin: 06/27/23 21:01 Dose: 40 mg Documented By: FREDIS Fenofibrate (Fenofibrate,Micronized 134 Mg Capsule) 134 mg PO BEDTIME [facility] Last Admin: 06/27/23 20:50 Dose: 134 mg Documented By: FREDIS Folic Acid (Folic Acid 1 Mg Tablet) 1 mg PO DAILY [facility] Last Admin: 06/28/23 09:02 Dose: 1 mg Documented By: TASHA Glucose (Glucose Gel 15 Gm Gel..Gram.) 15 gm PO Q15M PRN; Protocol PRN Reason: per Hypoglycemia Standing Ord. Guaifenesin (Guaifenesin La 600 Mg Tab.Er.12h) 600 mg PO BID [facility] Last Admin: 06/28/23 09:03 Dose: 600 mg Documented By: TASHA Hydralazine HCl (Hydralazine Hcl 10 Mg Tablet) 20 mg PO TID [facility]; Protocol Last Admin: 06/28/23 09:02 Dose: 20 mg Documented By: TASHA Insulin Glargine (Insulin Glargine,Hum.Rec.Anlog 100 Unit/Ml 10 Ml Vial) 26 unit SUBCUT BEDTIME [facility] Last Admin: 06/27/23 20:52 Dose: 26 unit Documented By: FREDIS Insulin Human Lispro (Insulin Lispro 100 Unit/Ml 3 Ml Vial) 0 unit SUBCUT QIDACHS [facility]; Protocol Last Admin: 06/28/23 12:22 Dose: 6 unit Documented By: FOREIGN Loratadine (Loratadine 10 Mg Tablet) 10 mg PO BEDTIME [facility] Last Admin: 06/27/23 20:50 Dose: 10 mg Documented By: FREDIS Lorazepam (Lorazepam 1 Mg Tablet) 1 mg PO BEDTIME PRN PRN Reason: anxiety Last Admin: 06/27/23 20:54 Dose: 1 mg Documented By: FREDIS Losartan Potassium (Losartan Potassium 50 Mg Tablet) 100 mg PO BEDTIME [facility]; Protocol Last Admin: 06/27/23 20:50 Dose: 100 mg Documented By: FREDIS Melatonin (Melatonin 3 Mg Tablet) 6 mg PO BEDTIME PRN PRN Reason: Insomnia Last Admin: 06/27/23 20:54 Dose: 6 mg Documented By: FREDIS Metoprolol Tartrate (Metoprolol Tartrate 25 Mg Tablet) 25 mg PO BID [facility]; Protocol Last Admin: 06/28/23 09:02 Dose: 25 mg Documented By: TASHA Ondansetron HCl (Ondansetron Hcl 4 Mg/2 Ml Vial) 4 mg IVPUSH Q8H PRN PRN Reason: Nausea and Vomiting Last Admin: 06/23/23 10:58 Dose: 4 mg Documented By: RAEANN Senna (Sennosides 8.6 Mg Tablet) 17.2 mg PO BEDTIME PRN PRN Reason: Constipation Last Admin: 06/24/23 20:20 Dose: 17.2 mg Documented By: CARRIE Sodium Chloride (0.9 % Sodium Chloride Flush 3 Ml Syringe) 3 ml IVFLUSH QSHIFT [facility] Last Admin: 06/28/23 09:03 Dose: 3 ml Documented By: TASHA Sodium Chloride (Sodium Chloride 0.65 % Nasal 44 Ml Sprbtl) 1 spray NOSTRIL-B Q4H PRN PRN Reason: Nasal Congestion Sodium Zirconium Cyclosilicate (Sodium Zirconium Cyclosilicate 10 Gm Powd.Pack) 10 gm PO DAILY [facility] Last Admin: 06/28/23 12:22 Dose: 10 gm Documented By: FOREIGN Torsemide (Torsemide 20 Mg Tablet) 10 mg PO DAILY [facility]; Protocol Last Admin: 06/28/23 09:02 Dose: 10 mg Documented By: TASHA Vitamin D (Cholecalciferol (Vitamin D3) 25 Mcg Tablet) 50 mcg PO DAILY [facility] Last Admin: 06/28/23 09:25 Dose: 50 mcg Documented By: TASHA Labs 06/23/23 06:47 06/28/23 08:57 Labs: Laboratory Results - last 24 hr 06/27/23 06/27/23 06/27/23 16:06 16:07 19:54 Anion Gap 14 Estim Creat Clear Calc 40.0 Estimated GFR 27 POC Glucose 242 H 305 H Random Glucose 277 H Calcium 8.7 D 06/28/23 06/28/23 06/28/23 08:12 08:57 11:57 Anion Gap 12 Estim Creat Clear Calc 41.8 Estimated GFR 28 POC Glucose 229 H 252 H Random Glucose 232 H Calcium 8.6 Assessment and Plan (1) COVID-19: Status: Acute (2) Morbid obesity with BMI of 45.0-49.9, adult: Status: Acute Plan 63 year old morbidly obese white male with history of CAD s/p [place], CKD, T2DM and hypertension admitted with acute shortness of breath and hypoxia. Found to be positive for COVID-19 Acute hypoxic respiratory failure d/t covid 19, on top of lynsey.. resolve, no resp issues at this time, treated with O2, steroid, and breathing treatment, presently O2 sat 98 on room air. Stop steroid Type 2 Diabetes Mellitus, with hyperglycemia d/t steroid, continue lantus +SSI, POC and diabetic diet YENNY on Stage 4 CKD, resolved, Cr presently within baseline. Holding Losartan d/t hyperkalemia. Hyperkalemia, d/t CKD, and Losartan. Hold Losartan. Lokelma brought it down some. consult nephro Hypertension. difficult to control, possibly steroid making it worse. Losartan on hold d/t hyperkalemia, continue Norvasc, metoprolol and hydralazine, nephrology to guid further management Chronic HFpEF continue torsemide chronic leg edema --continue Torsemide as above Morbid obesity BMI 45.4 likely contributing to hypoxia, respiratory symptoms minimally ambulatory at baseline weight loss encouraged LYNSEY CPAP, encouraged to use Full Code DVT ppx - Lovenox dispo - Initially PT recommended STR but has revised status to home given improvment need for inpt: Hyperkalemia and difficult to control HTN and need expert eval Quality Stroke Does the patient have a stroke diagnosis?: No VTE Prior VTE?: No VTE Risk Level:: Medical - moderate - high VTE Device Contraindication: N/A - Device Ordered VTE Drug Contraindication: N/A - Med Ordered
[2023-06-28 15:15] VITALS: BP 152/78; PULSE 64; RESP 20; TEMP 36.8; O2SAT 96
[2023-06-28 20:00] VITALS: BP 141/89; PULSE 69; TEMP 36.4; O2SAT 95
[2023-06-28] MEDS: Enoxaparin Sodium 40 MG/0.4 ML SYRINGE SUBCUT (20:51)
[2023-06-28] MEDS: Insulin Glargine,Hum.rec.anlog 100 UNIT/ML 10 ML VIAL 26 UNIT SUBCUT (20:53)
[2023-06-28] MEDS: Atorvastatin Calcium 80 MG TABLET PO (20:54)
[2023-06-28] MEDS: Loratadine 10 MG TABLET PO (20:55)
[2023-06-28] MEDS: LORazepam 1 MG TABLET PO (21:11)
[2023-06-28] MEDS: Melatonin 3 MG TABLET 6 MG PO (21:11)
[2023-06-29] VITALS: BP 168/78; PULSE 61; RESP 20; TEMP 36.2; O2SAT 97
[2023-06-29 04:00] VITALS: BP 160/73; PULSE 55; RESP 20; TEMP 36.1; O2SAT 98
[2023-06-29 08:00] VITALS: BP 159/78; PULSE 53; RESP 19; TEMP 5427.7; TEMP 9802; O2SAT 97
[2023-06-29] MEDS: Insulin Lispro 100 UNIT/ML 3 ML VIAL SUBCUT ×2 (09:06→11:53)
[2023-06-29] MEDS: 0.9 % Sodium Chloride Flush 3 ML SYRINGE IVFLUSH ×2 (09:06→11:52)
[2023-06-29] MEDS: amLODIPine Besylate 10 MG TABLET PO (09:07)
[2023-06-29] MEDS: Cholecalciferol (Vitamin D3) 25 MCG TABLET 50 MCG PO (09:07)
[2023-06-29] MEDS: Folic Acid 1 MG TABLET PO (09:08)
[2023-06-29] MEDS: Aspirin Enteric Coated 81 MG TABLET.DR PO (09:08)
[2023-06-29] MEDS: guaiFENesin LA 600 MG TAB.ER.12H PO (09:08)
[2023-06-29 09:29] VITALS: BP 159/78; PULSE 53; O2SAT 97
[2023-06-29] MEDS: Acetaminophen 325 MG TABLET 650 MG PO (11:52)
[2023-06-29 11:59] VITALS: BP 126/61; PULSE 58; RESP 20; TEMP 36.3; O2SAT 97
--- NOTE | 2023-06-29 12:05 | MHC.CM.PN ---
PER HOSPITALIST IF BP STABILIZES PT BE CLEARED FOR DC HOME W/[facility]UMP OF [facility], PT TO ARRANGE TRANSPORT
--- NOTE | 2023-06-29 12:18 | W.MHC.F2F ---
Service Date Service Date: 06/29/23 Encounter Date of encounter: 06/29/23 Reasons for Services Signs and symptoms assessed: weakness from hospitalization, covid Reason for residential: medication management and teach disease management Homebound: Leaving the home is medically contraindicated at this time without the asist of a device and/or another person due th the listed conditions above and below. Reason homebound: weakness related to hospital stay Homebound supporting statement: homebound due to weakness from hospitalization, covid 19, and therefore needs the assistance of another person Certification: Based on the above findings, I certify that this patient is confined to the home and needs intermittent residential care, physical therapy and/or speech therapy, or continues to need occupational therapy. The patient is under my care, and I have initiated the establishment of the plan of care. The patient will be followed by a physician who will periodically review the plan of care. Time Spent With Patient Time: Total time managing care of this patient today ____ minutes.
== END 2023-06-29 15:22 | disposition home health service (06) | DRG 137 ==
LOC: HO.ED 16:59 → HO.EDOVER 22:08 → HO.IMC 06-20 07:39
PROVIDERS: Hospitalist; Nurse Practitioner Family; Physician Assistant Medical; Admitting Provider Internal Medicine; Emergency Provider Emergency Medicine; PCP Internal Medicine; Visit Provider Internal Medicine
DX: U07.1 COVID-19 (principal); J96.01 Acute respiratory failure with hypoxia; Z68.42 Body mass index [BMI] 45.0-49.9, adult; I25.10 Atherosclerotic heart disease of native coronary artery without angina pectoris; E66.2 Morbid (severe) obesity with alveolar hypoventilation; I13.0 Hypertensive heart and chronic kidney disease with heart failure and stage 1 through stage 4 chronic kidney disease, or unspecified chronic kidney disease; I50.32 Chronic diastolic (congestive) heart failure; E87.5 Hyperkalemia; N17.9 Acute kidney failure, unspecified; E78.5 Hyperlipidemia, unspecified; N18.4 Chronic kidney disease, stage 4 (severe); E11.22 Type 2 diabetes mellitus with diabetic chronic kidney disease; Z79.4 Long term (current) use of insulin; Z79.02 Long term (current) use of antithrombotics/antiplatelets; Z79.82 Long term (current) use of aspirin; Z79.899 Other long term (current) drug therapy
CPT/HCPCS: 0241U; 36415; 36600; 71046; 80048; 80053; 82947; 83690; 83735; 83880; 84443; 85025; 85610; 94640; 97163; 97530; 99285; J0360; J1100; J1650; J1940; J2405

== ENCOUNTER → 2023-06-19 21:55 | Outpatient (BNV) | payer BC, SELFPAY | PROVIDERS: Admitting Provider Internal Medicine; Emergency Provider Emergency Medicine; PCP Internal Medicine; Visit Provider Internal Medicine | DX: U07.1 COVID-19 (principal); J96.01 Acute respiratory failure with hypoxia; E66.01 Morbid (severe) obesity due to excess calories; Z68.42 Body mass index [BMI] 45.0-49.9, adult; N18.4 Chronic kidney disease, stage 4 (severe) | CPT/HCPCS: 99223; 99232; 99233; 99239; G0180 ==